=== PATIENT | female | born 1955 | race Caucasian/White ===

== ENCOUNTER 2016-07-10 02:18 | Emergency (ER) | payer BC ==
[~2016-07-10] VITALS: Ht 167.6 cm; Wt 118.1 kg
[~2016-07-10 02:18] MED LIST: ASPEC81 PO; DILT-115 PO; HYDR12.55 PO; LISI10TA PO
[2016-07-10 02:25] VITALS: TEMP 36.8; Ht 167.6 cm; Wt 118.1 kg
[2016-07-10 02:48] VITALS: PULSE 81
[2016-07-10 02:58] LABS: HEMATOCRIT 45.6 % (37-47); MEAN CELL VOLUME 91.6 fL (80-100); MEAN CORPUSCULAR HEMOGLOBIN 31.1 pg (25-34); MEAN PLATELET VOLUME 10.7 fL (7.4-10.4); PLATELET COUNT 439 K/uL (130-400); RED BLOOD COUNT 4.98 M/uL (4.2-5.4); WHITE BLOOD COUNT 8.45 K/uL (4.8-10.8)
[2016-07-10 03:15] LABS: BLOOD UREA NITROGEN 16 mg/dl (7-18); BUN/CREATININE RATIO 16.4 (10-20); CALCIUM 9.3 mg/dl (8.5-10.1); CARBON DIOXIDE 29 mmol/L (21-32); CHLORIDE 109 mmol/L (98-107); GLUCOSE 131 mg/dl (70-99); POTASSIUM 3.9 mmol/L (3.5-5.1); SODIUM 145 mmol/L (136-145)
[2016-07-10] MEDS ORDERED: ASPCH81X PO (03:46)
[2016-07-10] MEDS ORDERED: LISI40TA PO (03:46)
[2016-07-10] MEDS ORDERED: CHOL500021 PO (03:46)
[2016-07-10] MEDS ORDERED: MULT-1027 PO (03:46)
[2016-07-10] MEDS ORDERED: CLR10 PO (03:46)
[2016-07-10] MEDS ORDERED: METO25TA56 PO (03:46)
[2016-07-10 04:18] VITALS: BP 145/72; O2SAT 98
--- NOTE | 2016-07-10 04:21 | EMERGENCY ROOM VISIT NOTE ---
History Report prepared by Nakia: Louise Weiss Under the Supervision of: Dr. Najma Urbina D.O. First contact with patient: 02:31 Chief Complaint: PALPITATIONS Stated Complaint: HEART PALPS History of Present Illness The patient is a 61 year old female who presents to the Emergency Room with complaints of constant heart palpitations beginning 3 hours ago. The patient states that when she lay down to go to bed tonight she felt like her heart was "flopping around". She reports that she had an episode of A-Fib 1 year ago but has not had any episodes since. The patient complains of constant leg cramps that are not new and happen every night. She denies any chest pain, SOB, nausea , vomiting, recent illness, recent medication changes. She notes that she took a Cardizem on her way in tonight. She notes that she takes Metoprolol and baby Aspirin. Source of History: patient Onset: 3 hours ago Position: chest Quality: other (heart palpitations) Timing: constant Associated Symptoms: No SOB, No chest pain, No nausea, No vomiting Note: The patient complains of constant leg cramps that are not new and happen every night. She denies any recent illness and recent medication changes. Review of Systems See HPI for pertinent positives & negatives. A total of 10 systems reviewed and were otherwise negative. Past Medical & Surgical Medical Problems: (1) Atrial fibrillation with RVR Family History No pertinent family history stated. Social History Smoking Status: Never Smoker Drug Use: none Marital Status: Housing Status: lives with family Occupation Status: employed Current/Historical Medications Scheduled Aspirin (Aspirin Chewable), 81 MG PO DAILY Cholecalciferol (Vitamin D3), 5,000 UNIT PO DAILY Lisinopril (Prinivil), 40 MG PO DAILY Loratadine (Claritin), 10 MG PO DAILY Metoprolol Tartrate (Lopressor) (Lopressor), 25 MG PO BID Multiple Vitamin (Multi Vitamin), 1 TAB PO DAILY Allergies Coded Allergies: No Known Allergies (Verified , 07/10/16) Physical Exam Vital Signs Date Time Temp Pulse Resp B/P Pulse Ox O2 Delivery O2 Flow Rate FiO2 07/10/16 04:18 20 145/72 98 07/10/16 02:48 81 07/10/16 02:25 36.8 114 18 178/96 96 Room Air Physical Exam HEENT: Head - normocephalic and atraumatic Pupils are equal, round, and reactive to light. Extraocular eye muscles are intact, and sclera are anicteric. Nose - moist nasal mucosa without discharge. Mouth - moist buccal mucosa. Oropharynx is nonerythematous and there is no tonsillar exudate or edema noted. Neck: Supple; no JVD, nuchal rigidity, cervical lymphadenopathy. Heart: Regular rate and rhythm. There is a normal S1 and S2 with no murmurs, clicks, or gallops appreciated. Lungs: Clear to auscultation bilaterally with no wheezes, rales, or rhonchi. Abdomen: Soft, completely nontender, nondistended, with good bowel sounds. There are no palpable pulsatile masses or hepatosplenomegaly. There is no guarding, rigidity, or rebound noted. Extremities: No evidence of cyanosis, clubbing, or edema. There are easily palpable peripheral pulses. Skin: warm and dry with good turgor and no rashes. Medical Decision & Procedures Laboratory Results 07/10/16 02:40 07/10/16 02:40 Test 07/10/16 02:40 Red Blood Count 4.98 M/uL (4.2-5.4) Mean Corpuscular Volume 91.6 fL (80-100) Mean Corpuscular Hemoglobin 31.1 pg (25-34) Mean Corpuscular Hemoglobin Concent 34.0 g/dl (32-36) RDW Standard Deviation 47.0 fL (36.4-46.3) RDW Coefficient of Variation 13.9 % (11.5-14.5) Mean Platelet Volume 10.7 fL (7.4-10.4) Anion Gap 7.0 mmol/L (3-11) Est Creatinine Clear Calc Drug Dose 78.2 ml/min Estimated GFR () 70.9 Estimated GFR (Non- 61.2 BUN/Creatinine Ratio 16.4 (10-20) Calcium Level 9.3 mg/dl (8.5-10.1) Total Creatine Kinase 112 U/L (26-192) Creatine Kinase MB 1.1 ng/ml (0.5-3.6) Creatine Kinase MB Ratio 1.0 (0-3.0) Troponin I < 0.015 ng/ml (0-0.045) Pro-B-Type Natriuretic Peptide 183 pg/ml (0-900) Thyroid Stimulating Hormone (TSH) 2.880 uIu/ml (0.300-4.500) Laboratory results per my review. ECG Indication: palpitations Rate (beats per minute): 127 Rhythm: atrial fibrillation Findings: no acute ischemic change, no ectopy, other (RVR) Change: EKG #2: Normal Sinus, 82, no ischemia, no ectopy ED Course 0231: Past medical records reviewed. The patient was evaluated in room A10. A complete history and physical exam was performed. Upon entering the room, the patient was in an atrial fibrillation with a rapid ventricular response. As I went to perform a physical exam, it was noted that the patient's heart rate was in the 80s and her rhythm was normal sinus rhythm. A repeat EKG was done at that time. 0357: I reevaluated the patient. She is in normal sinus at 67. 0411: Upon reevaluation, the patient is doing will. I discussed findings and results with her. She verbalized agreement of the treatment plan. The patient was discharged home. Medical Decision The patient is a 61 year old female who presents to the ED with palpitations. Differential diagnosis includes thyroid dysfunction, electrolyte abnormality, cardiac ischemia, CHF, cardiac dysrhythmia. LABS: No leukocytosis Stable H&H Glucose 131 TSH 2.8 Negative Cardiac Enzymes BNP 183 Normal Renal Function This is a 61-year-old female patient who presents to the emergency department with an episode of atrial fibrillation and rapid ventricular response. Prior to leaving her home to come here to the emergency department, the patient took a dose of Cardizem. Upon arriving here in the ER, the patient converted on her own into a normal sinus rhythm. I reviewed the laboratory studies with the patient and her . I recommended that in the future, she can use her dose of Cardizem but that she can wait 60-90 minutes to see if there is a positive affect. However, if the patient has any episodes of lightheadedness, shortness of breath or chest discomfort, she should come to the hospital immediately. Impression Primary Impression: Atrial fibrillation with RVR Scribe Attestation The scribe's documentation has been prepared under my direction and personally reviewed by me in its entirety. I confirm that the note above accurately reflects all work, treatment, procedures, and medical decision making performed by me. Departure Information Dispostion Home / Self-Care Referrals Eric Ybarra M.D. (PCP) Forms HOME CARE DOCUMENTATION FORM, IMPORTANT VISIT INFORMATION, WORK / SCHOOL INSTRUCTIONS Patient Instructions My [facility] Additional Instructions If you develop another episode of palpitations, you may take your cardizem and wait 60-90 minutes to see if it has an effect. If not, come to the hospital. If you have any chest pain, shortness of breath or lightheadedness, call [phone]
[2016-10-29] MEDS ORDERED: TURM1CAP4 PO (13:05)
[2016-10-29] MEDS ORDERED: NAPR1TAB9 PO (13:05)
[2016-10-29] MEDS ORDERED: CINN500T PO (13:05)
[2016-10-29] MEDS ORDERED: PROB1TAB16 PO (13:05)
== END 2016-07-10 04:21 | disposition home or self-care (01) ==
LOC: C.EDB 02:19 → C.EDA 04:21
DX: I48.0 Paroxysmal atrial fibrillation (principal); Z79.82 Long term (current) use of aspirin; Z79.899 Other long term (current) drug therapy

== ENCOUNTER → 2016-11-05 | Day surgery (SDC) | payer BC ==
[2016-10-29 13:05] VITALS: BMI 41.0
[~2016-11-05] VITALS: Ht 167.6 cm; Wt 115.9 kg
[~2016-11-05] MED LIST changes: +ASPCH81X PO; -ASPEC81 PO; +CHOL500021 PO; +CINN500T PO; -DILT-115 PO; -HYDR12.55 PO; +LIDOCAINE HCL 2% 2 ML VIAL (20MG/ML) ONE; -LISI10TA PO; +LISI40TA PO; +METO25TA56 PO; +MULT-1027 PO; +NAPR1TAB9 PO; +PROB1TAB16 PO; +PROPOFOL IV EMULSION 10 MG/ML 20 ML VIAL IV ONE; +TURM1CAP4 PO
[2016-11-05 12:28] VITALS: Ht 167.6 cm; Wt 115.9 kg
--- NOTE | 2016-11-05 13:09 | Endo History and Physical ---
History & Physical Date of Service: Nov 05, 2016. Chief Complaint: SCREENING Referring Physician: DR. BURROWS History of Present Illness For colonoscopy Past Medical History Arthritis, Cancer, Hypertension Past Surgical History Hx Cardiac Surgery: Yes (HEART CATH, NO STENTS) Hx Internal Defibrillator: No Hx Pacemaker: No Hx Abdominal Surgery: Yes (ELISEO) Hx of Implantable Prosthesis: No Hx Post-Op Nausea and Vomiting: No Hx Cancer Surgery: Yes (BCC REMOVAL FROM FOREHEAD) Hx Thoracic Surgery: No Hx Orthopedic: No Hx Urinary Tract Surgery: No Family History None Social History Smoking Status: Never Smoker Hx Substance Use: No Hx Alcohol Use: No Allergies Coded Allergies: No Known Allergies (Verified , 11/05/16) Current Medications Reported Home Medications Medications Dose Route/Sig Max Daily Dose Days Date Category Aleve (Naproxen) 220 Mg Tab 220 Mg PO QAM 10/29/16 Reported Probiotic (Probiotic Product) 1 Tab Tab 1 Tab PO Q2D 10/29/16 Reported Turmeric (Turmeric (Curcuma Longa)) 500 Mg Cap 1 Cap PO Q2D 10/29/16 Reported Cinnamon 500 Mg Tab 1 Tab PO Q2D 10/29/16 Reported Multi Vitamin (Multiple Vitamin) 1 Tab Tab 1 Tab PO QAM 07/10/16 Reported Aspirin Chewable (Aspirin) 81 Mg Chew 81 Mg PO QPM 07/10/16 Reported Vitamin D3 (Cholecalciferol) 5,000 Unit Chw 5,000 Unit PO QAM 07/10/16 Reported Lopressor (Metoprolol Tartrate) 25 Mg Tab 25 Mg PO BID 07/10/16 Reported Prinivil (Lisinopril) 40 Mg Tab 40 Mg PO QAM 07/10/16 Reported Vital Signs Weight (Kilograms): 115.91 Height (Feet): 5 Height (Inches): 6 Date Time Temp Pulse Resp B/P (MAP) Pulse Ox O2 Delivery O2 Flow Rate FiO2 11/05/16 12:40 37.0 69 20 179/85 (116) 96 Room Air Physical Exam General Appearance: + obese Respiratory/Chest: Respiratory effort: no dyspnea Cardiovascular: Heart Auscultation: RRR Abdomen: Inspection & Palpation: soft Assessment and Plan For screening colonoscopy
--- NOTE | 2016-11-05 13:31 | Discharge Instructions ---
Endoscopy Patient Instructions Date / Procedure(s) Performed Nov 05, 2016. Colonoscopy Allergy Information Coded Allergies: No Known Allergies (Verified , 11/05/16) Discharge Date / Findings Nov 05, 2016. Diverticulosis, skin tags Medication Instructions Restart Stopped Medication(s): resume meds Reported Home Medications Medications Dose Route/Sig Max Daily Dose Days Date Category Aleve (Naproxen) 220 Mg Tab 220 Mg PO QAM 10/29/16 Reported Probiotic (Probiotic Product) 1 Tab Tab 1 Tab PO Q2D 10/29/16 Reported Turmeric (Turmeric (Curcuma Longa)) 500 Mg Cap 1 Cap PO Q2D 10/29/16 Reported Cinnamon 500 Mg Tab 1 Tab PO Q2D 10/29/16 Reported Multi Vitamin (Multiple Vitamin) 1 Tab Tab 1 Tab PO QAM 07/10/16 Reported Aspirin Chewable (Aspirin) 81 Mg Chew 81 Mg PO QPM 07/10/16 Reported Vitamin D3 (Cholecalciferol) 5,000 Unit Chw 5,000 Unit PO QAM 07/10/16 Reported Lopressor (Metoprolol Tartrate) 25 Mg Tab 25 Mg PO BID 07/10/16 Reported Prinivil (Lisinopril) 40 Mg Tab 40 Mg PO QAM 07/10/16 Reported Provider Instructions Activity Restrictions - No exercising or heavy lifting for 24 hours. - Do not drink alcohol the day of the procedure. - Do not drive a car or operate machinery until the day after the procedure. - Do not make any important decisions or sign important papers in 24 hours after the procedure. Following Day: - Return to full activity which may include returning to work/school. Diet Start your diet with liquids and light foods (jello, soup, juice, toast). Then eat your usual diet if not nauseated. Treatment For Common After Affects For mild abdominal pain, bloating, or excessive gas: - Rest - Eat lightly - Lie on right side Follow-Up Information Follow-up with DR. BURROWS as scheduled Anesthesia Information What You Should Know You have had a procedure that required some medicine to reduce anxiety and discomfort. This treatment is called moderate sedation. After receiving the treatment, you may be sleepy, but you will be able to breathe on your own. The effects of the treatment may last for several hours. Follow these instructions along with Activity/Diet recommendations noted above: * Do NOT do anything where dizziness or clumsiness would be dangerous. * Rest quietly at home today, then you can be up and about tomorrow. * Have a responsible person stay with you the rest of today. * You may have had an I.V. today. If so, you may take the dressing off later today. Recommendations Call your doctor if: * Trouble breathing * Continuous vomiting for more than 24 hours * Temperature above 101 degrees * Severe abdominal pain or bloating * Pain not relieved by pain medicine ordered * There is increased drainage or redness from any incision * A large amount of rectal bleeding greater than 2-3 tablespoons. (If you had a polyp/s removed or have hemorrhoids, a small amount of blood - from the rectum is to be expected.) * You have any unanswered questions or concerns. IN THE EVENT OF A SERIOUS EMERGENCY, GO TO THE NEAREST EMERGENCY ROOM Your discharge instructions were prepared by provider Markos Pablo. Patient Instructions Signature Page Maura Izquierdo Patient (or Guardian) Signature/Date: I have read and understand the instructions given to me by my caregivers. Caregiver/RN/Doctor Signature/Date: The above-named patient and/or guardian has received patient instructions on this date. + Original Patient Signature Page (only) stays with chart. Please make copy for patient.
--- NOTE | 2016-11-05 13:34 | GI REPORT ---
Procedure Date: 11/05/2016 12:53 PM Procedure: Colonoscopy Indications: Screening for colorectal malignant neoplasm Medicines: Propofol total dose 400 mg IV, Lidocaine 40 mg IV Complications: No immediate complications. Estimated Blood Loss: Estimated blood loss: none. Procedure: Pre-Anesthesia Assessment: - Prior to the procedure, a History and Physical was performed, and patient medications, allergies and sensitivities were reviewed. The patient's tolerance of previous anesthesia was reviewed. - The risks and benefits of the procedure and the sedation options and risks were discussed with the patient. All questions were answered and informed consent was obtained. After I obtained informed consent, the scope was passed under direct vision. Throughout the procedure, the patient's blood pressure, pulse, and oxygen saturations were monitored continuously. The scope was introduced through the anus and advanced to the terminal ileum. The colonoscopy was performed without difficulty. The patient tolerated the procedure well. The quality of the bowel preparation was good. Findings: The perianal exam findings include skin tags. A few diverticula were found in the sigmoid colon. Impression: - Perianal skin tags found on perianal exam. - Diverticulosis in the sigmoid colon. - No specimens collected. Recommendation: - Discharge patient to home (ambulatory). - Continue present medications. - Repeat colonoscopy in 10 years for screening purposes. - Return to primary care physician PRN. Markos Pablo M.D. Markos Pablo MD 11/05/2016 1:34:19 PM This report has been signed electronically. Note Initiated On: 11/05/2016 12:53 PM I attest to the content of the Intraoperative Record and orders documented therein, exceptions below
--- NOTE | 2016-11-05 14:00 | Anesthesiology Progress Note ---
Anesthesia Post Op Note Date & Time Nov 05, 2016 at 14:00 Vital Signs Pain Intensity: 0 Vital Signs Past 12 Hours Date Time Temp Pulse Resp B/P (MAP) Pulse Ox O2 Delivery O2 Flow Rate FiO2 11/05/16 13:49 89 14 159/84 (109) 97 Room Air 11/05/16 13:34 89 14 144/82 (102) 97 Room Air 11/05/16 12:40 37.0 69 20 179/85 (116) 96 Room Air Notes Mental Status: alert / awake / arousable, participated in evaluation Pt Amnestic to Procedure: Yes Nausea / Vomiting: adequately controlled Pain: adequately controlled Airway Patency, RR, SpO2: stable & adequate BP & HR: stable & adequate Hydration State: stable & adequate Anesthetic Complications: no major complications apparent
[2016-11-05 14:05] VITALS: BP 143/75; PULSE 87; O2SAT 97
== END | disposition home or self-care (01) ==
LOC: C.GI 12:13
PROVIDERS: ATTEND Internal Medicine Gastroenterology
DX: Z12.11 Encounter for screening for malignant neoplasm of colon (principal); K57.30 Diverticulosis of large intestine without perforation or abscess without bleeding; K64.4 Residual hemorrhoidal skin tags

== ENCOUNTER → 2017-02-16 | Outpatient (CLI) | payer BC ==
[~2017-02-16] MED LIST changes: -LIDOCAINE HCL 2% 2 ML VIAL (20MG/ML) ONE; -PROPOFOL IV EMULSION 10 MG/ML 20 ML VIAL IV ONE
--- NOTE | 2017-02-17 07:55 | MAMMOGRAPHY REPORT ---
BILATERAL DIGITAL SCREENING MAMMOGRAM TOMOSYNTHESIS WITH CAD: 02/16/2017 CLINICAL HISTORY: Routine screening. Patient has no complaints. TECHNIQUE: Breast tomosynthesis in addition to standard 2D mammography was performed. Current study was also evaluated with a Computer Aided Detection (CAD) system. COMPARISON: Comparison is made to exams dated: 02/16/2016 mammogram, 10/31/2014 mammogram, 02/15/2012 mammogram, 12/04/2010 mammogram, 12/03/2009 mammogram - [facility], and 10/21/2008. BREAST COMPOSITION: There are scattered areas of fibroglandular density in both breasts. FINDINGS: No suspicious masses, calcifications, or areas of architectural distortion are noted in ei ther breast. There has been no significant interval change compared to prior exams. Scattered bilater al benign-appearing calcifications are not significantly changed. IMPRESSION: ACR BI-RADS CATEGORY 2: BENIGN There is no mammographic evidence of malignancy. A 1 year screening mammogram is recommended. The pa tient will receive written notification of the results. Approximately 10% of breast cancers are not detected with mammography. A negative mammographic report should not delay biopsy if a clinically suggestive mass is present. Karolyn Lee M.D. ah/:02/16/2017 16:08:42 Mechanical Fitter: Brianda MALCOLM(R)(M), [facility] letter sent: Normal 1/2 BI-RADS Code: ACR BI-RADS Category 2: Benign
== END | disposition home or self-care (01) ==
LOC: C.MAMM 15:49
PROVIDERS: ATTEND Family Medicine
DX: Z12.31 Encounter for screening mammogram for malignant neoplasm of breast (principal)

== ENCOUNTER 2019-09-04 05:17 | Observation (INO) ==
--- NOTE | 2019-08-21 22:43 | PAT Medication Instructions ---
Medication Instructions Date of Service August 21, 2019 Home Medications aspirin 81 mg PO QPM zfornba-bgiftnito-rrly 1 tab PO BID carvedilol 12.5 mg PO BID cholecalciferol (vitamin D3) 125 mcg PO QAM diltiazem HCl 120 mg PO QAM hydrochlorothiazide 25 mg PO QAM lisinopril 20 mg PO QAM multivitamin 1 tab PO QAM naproxen sodium 440 mg PO BID omeprazole 20 mg PO BID sour velazquez extract [Tart Velazquez Extract] 1,000 mg PO QAM vitamin B complex [Super B-50 Complex] 1 cap PO QAM ASK your surgeon for instructions naproxen sodium 440 mg PO BID STOP taking 2 weeks before surgery If surgery is within 2 weeks, stop taking as soon as possible. sour velazquez extract [Tart Velazquez Extract] 1,000 mg PO QAM DO NOT take the morning of surgery pibyxza-dsepnwhtc-yrcv 1 tab PO BID cholecalciferol (vitamin D3) 125 mcg PO QAM hydrochlorothiazide 25 mg PO QAM lisinopril 20 mg PO QAM multivitamin 1 tab PO QAM vitamin B complex [Super B-50 Complex] 1 cap PO QAM Take morning of surgery With a small sip of water, OTHERWISE NOTHING TO EAT OR DRINK AFTER MIDNIGHT: carvedilol 12.5 mg PO BID diltiazem HCl 120 mg PO QAM omeprazole 20 mg PO BID Take evening before surgery aspirin 81 mg PO QPM frrpwbi-hbkerprrk-iotx 1 tab PO BID carvedilol 12.5 mg PO BID naproxen sodium 440 mg PO BID omeprazole 20 mg PO BID Other Notes If you have any questions please call us at [phone] or [phone] or [phone] or [phone]
--- NOTE | 2019-08-22 11:50 | Anesthesiology Consultation ---
Date of Service August 22, 2019 Assessment & Plan (1) Encounter for pre-operative examination: COVID Status: As of 08/20 nurse assessment, patient denies travel to endemic area, known exposure/sick contacts, symptoms, or testing for coronavirus. She will be tested prior to surgery by surgeon. Chart Review Chart Review: Acceptable Risk for Surgery and Patient seen in Pre Admission Testing Teaching & Discussion Instructed NPO after midnight before surgery, except medications with 15 cc of water. Medication instructions provided according to the PAT guidelines. History Surgery Operation Date: 09/04/19 07:00 Proposed Procedures p Right Total Hip Arthroplasty - Kaden Petty MD Height/Weight Height: 5 ft 5 in Weight: 120.8 kg Allergies Allergy/AdvReac Type Severity Reaction Status Date / Time No Known Allergies Allergy Verified 08/17/19 14:35 Medications Home Medications Medication Instructions Recorded Confirmed Last Taken aspirin 81 mg PO QPM 08/17/19 08/17/19 Unknown ajspwie-fwairzxxg-frqh 1 tab PO BID 08/17/19 08/17/19 Unknown carvedilol 12.5 mg PO BID 08/17/19 08/17/19 Unknown cholecalciferol (vitamin D3) 125 mcg PO QAM 08/17/19 08/17/19 Unknown [Vitamin D3] diltiazem HCl 120 mg PO QAM 08/17/19 08/17/19 Unknown hydrochlorothiazide 25 mg PO QAM 08/17/19 08/17/19 Unknown lisinopril 20 mg PO QAM 08/17/19 08/17/19 Unknown multivitamin 1 tab PO QAM 08/17/19 08/17/19 Unknown naproxen sodium 440 mg PO BID 08/17/19 08/17/19 Unknown omeprazole 20 mg PO BID 08/17/19 08/17/19 Unknown sour velazquez extract [Tart Velazquez 1,000 mg PO QAM 08/17/19 08/17/19 Unknown Extract] vitamin B complex [Super B-50 1 cap PO QAM 08/17/19 08/17/19 Unknown Complex] Past Medical History Medical History (Updated 08/23/19 @ 12:50 by Christiano Britton) Arthritis of left hip Atrial fibrillation 2016 X2 EPISODES - CONVERTED TO NSR WITH MEDICATION - FOLLOWS W/ DR. SHAFER. CHADSVASC score of 2. Degenerative joint disease of right hip GERD (gastroesophageal reflux disease) History of basal cell carcinoma History of pancreatitis 1990S Hypertension Morbid obesity Osteoarthritis Posterior vitreous detachment Exercise / Class Metabolic Activity II 4-5 Yardwork/Stairs/Walk up hill (MOves slowly up stairs 2/2 hip pain and deconditioning/obesity, denies any chest pain, mild +SOB if rushing) Past Surgical History Surgical History History of basal cell carcinoma (BCC) excision History of cardiac cath 1999 [place] - NO STENTS History of cholecystectomy History of colonoscopy History of ERCP History of esophagogastroduodenoscopy (EGD) History of removal of skin mole History of tooth extraction Past Anesthesia History No Hx of Anesthesia Complications and No Family Hx of Anesthesia Complications History of PONV No Hx of PONV and Hx of Motion Sickness Social History Smoking Status: Never smoker Do You Dip or Chew Tobacco: No Hx Alcohol Use: No Hx Substance Use: No substance use type: does not use Review of Systems Pt denies any recent chest pain, shortness of breath, palpitations, cough, fever or URI. Physical Exam Vital Signs BP: 138/77 P: 66bpm SPO2: 98% RA T: 98.6 F R: 16 Constitutional + morbidly obese ENMT Mouth: no dental restorations, no chipped teeth and no loose teeth Thyromental Distance: > or= 3.5 Finger Breadths (4) Mallampati Class: II Neck normal visual inspection and + thick neck; neck extension not limited Respiratory normal respiratory effort Auscultation: lungs clear to auscultation bilaterally Cardiovascular Rate/Rhythm: regular rate and regular rhythm Heart Sounds: no murmur Extremities: no edema Testing Laboratory Results 08/22/19 12:03 08/22/19 12:03 PT 10.3 Seconds (9.0-12.0) 08/22/19 12:03 INR 1.0 (0.9-1.1) 08/22/19 12:03 APTT 30.4 Seconds (21.0-31.0) 08/22/19 12:03 Blood Type O Positive 08/22/19 12:03 Antibody Screen NEGATIVE 08/22/19 12:03 Electrocardiogram Date: 08/22/19 Findings: + NSR @ (62bpm) Chest X-Ray Date: 08/22/19 Findings: + NAD
--- NOTE | 2019-08-22 12:27 | XRay Report ---
TWO VIEW CHEST CLINICAL HISTORY: Preoperative examination. FINDINGS: PA and lateral chest radiographs are compared to study dated 05/23/2015. The cardiomediastina l silhouette is unremarkable. There is mild bibasilar atelectasis. The lungs and pleural spaces are o therwise clear. There is no pneumothorax. The skeletal structures are osteopenic. The bony thorax ana ears intact. IMPRESSION: No active disease in the chest. ACT 112: Negative or not required by law. Electronically signed by: Isak Quinn M.D. 08/22/2019 12:25 PM
[2019-08-22 14:07] LABS: Basophils # (auto) 0.04 K/uL (0-0.2); Basophils % (auto) 0.5 %; Eosinophils # (auto) 0.24 K/uL (0-0.5); Eosinophils % (auto) 2.9 %; Hematocrit (blood only) 40.7 % (37-47); Hemoglobin 13.1 g/dL (12.0-16.0); Immature Granulocytes # (auto) 0.02 K/uL (0.00-0.02); Immature Granulocytes % (auto) 0.2 %; Lymphocytes # (auto) 2.19 K/uL (1.2-3.4); Lymphocytes % (auto) 26.8 %; Mean Corpuscular Hemoglobin 29.5 pg (25-34); Mean Corpuscular Hgb Conc 32.2 g/dL (32-36); Mean Corpuscular Volume 91.7 fL (80-100); Mean Platelet Volume 10.9 fL (7.4-10.4); Monocytes # (auto) 0.79 K/uL (0.11-0.59); Monocytes % (auto) 9.7 %; Neutrophils % (auto) 59.9 %; Platelet Count 413 K/uL (130-400); RDW Coefficient of Variation 13.7 % (11.5-14.5); RDW Standard Deviation 45.1 fL (36.4-46.3); Red Blood Count 4.44 M/uL (4.2-5.4); White Blood Count 8.18 K/uL (4.8-10.8)
[2019-08-22 14:15] LABS: BUN Creatinine Ratio 15.8 (10-20); Calcium 9.9 mg/dl (8.5-10.1); Creatinine Clr Calc Pharmacy 69.5 ml/min; Est GFR (African American) 63.3; Est GFR (Non-African American) 54.6
[2019-08-22 14:17] LABS: Partial Thromboplastin Ratio 1.1; Partial Thromboplastin Time 30.4 Seconds (21.0-31.0); Prothrombin Time 10.3 Seconds (9.0-12.0)
--- NOTE | 2019-08-23 14:40 | Electrocardiogram Report ---
Test Reason : Blood Pressure : / mmHG Vent. Rate : 062 BPM Atrial Rate : 062 BPM P-R Int : 152 ms QRS Dur : 090 ms QT Int : 430 ms P-R-T Axes : 024 029 049 degrees QTc Int : 436 ms Normal sinus rhythm Normal ECG When compared with ECG of 10-JUL-2016 02:46, No significant change was found Confirmed by Umang Zeng ([id number]) on 08/23/2019 2:39:39 PM Referred By: Kaden Petty Confirmed By:Umang Zeng
--- NOTE | 2019-08-31 10:42 | History and Physical Report ---
DATE OF ADMISSION: 09/04/2019 CHIEF COMPLAINT: Bilateral hip pain and discomfort, right side greater than left. 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 She has got a several year history of bilateral hip pain and discomfort that has gradually gotten worse over time. The right side has been worse than the left. She also has knee arthritis which bothers her. She has been managed by [facility]. She had 2 shots in the right hip. The first one in September of last year which helped significantly and the last one in March of this year, did not help much. She has been taking glucosamine which has not helped either. She has actually resorted to using the cane to get around at times. She describes buttock pain, groin pain, thigh pain. She does have pain that radiates down to her knee. She takes Aleve with minimal relief. Pain has become more debilitating. She has difficulty putting her shoes and socks on. She has difficulty going up and down steps. She would like to have her right hip fixed. PAST MEDICAL HISTORY: Past medical history significant for: 1. Intermittent atrial fibrillation in the past. 2. Hypertension. 3. Basal cell skin cancer. 4. Obesity with BMI of 44. PAST SURGICAL HISTORY: Previous surgeries include: 1. Cholecystectomy. 2. Endoscopy. ALLERGIES: None. CURRENT MEDICINES: Include: 1. Omeprazole 20 mg twice a day. 2. Carvedilol 12.5 mg twice a day. 3. Lisinopril 20 mg a day. 4. Diltiazem 120 mg a day. 5. Hydrochlorothiazide 25 mg a day. 6. Aleve twice a day. SOCIAL HISTORY: Significant for 64-year-old female. 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 She is . No smoking history. FAMILY HISTORY: Noncontributory. REVIEW OF SYSTEMS: Negative for diabetes, neurologic problems, vascular problems or bleeding disorders. No history of DVT or PE. Does have this intermittent atrial fibrillation history. PHYSICAL EXAMINATION: GENERAL: Shows a pleasant, middle-aged female. Looks to be in reasonably good health. HEENT: Benign. NECK: Supple, no lymphadenopathy. LUNGS: Clear to auscultation. HEART: Has a regular rate and rhythm. ABDOMEN: Soft, nontender, nondistended. EXTREMITIES: Grossly neurovascularly intact except as follows. Examination of both hips reveal the patient walks with a bit of an antalgic gait. She clearly limps on the right side. Leg lengths are pretty equal. She has marked pain and limitation of any hip motion. She can internally rotate to about -5 which recreates pain. Negative straight leg raise. She is neurologically intact. Examination of the right knee reveals some bony hypertrophy. Small knee effusion. Range of motion 5-110. She does have some stiffness in flexion. X-RAYS: X-rays of the hips reveal advanced right hip DJD. She has complete loss of her joint space. She has collapse of the femoral head. This has progressed over the past year from previous x-rays. X-rays of the knees reveal bilateral knee DJD. ASSESSMENT: A 64-year-old female with a history of intermittent atrial fibrillation in the past, hypertension, obesity with: 1. Bilateral hip degenerative joint disease, right side greater than left. 2. Bilateral knee degenerative joint disease. Hip seems to be the most bothersome for her at this point. Unfortunately, she is going to probably need multiple operations to fix her arthritic problems. PLAN: After extensive discussion, we are going to proceed with a right total hip replacement. The risks and benefits of this procedure were explained to the patient including but not limited to DVT, PE, , infection, neurological injury, vascular injury, bleeding problem, pain, limited range of motion, stiffness, failure to relieve her symptoms, incomplete relief of symptoms, need for further surgery in future, fracture, leg length inequality, nerve palsy, etc. The patient understands and desires to proceed. Informed consent was obtained. We did talk about holding her lisinopril and Aleve before surgery. She will take her carvedilol. She is planning to be discharged to home using the home health and her 's assistance.
[2019-09-04] MEDS ORDERED: FAMOTIDINE 20 MG TAB PO SCH (06:00)
[2019-09-04] MEDS ORDERED: CEFAZOLIN 2000MG 2,000 MG/15 ML SYR IV SCH (06:00)
[2019-09-04] MEDS ORDERED: ACETAMINOPHEN 500 MG TAB PO SCH (06:00)
[2019-09-04] MEDS ORDERED: METOCLOPRAMIDE HCL 10 MG TABLET PO SCH (06:00)
[2019-09-04] MEDS ORDERED: CEFAZOLIN 3000MG 72.5 ML IV SCH (06:00)
[2019-09-04] MEDS ORDERED: TRANEXAMIC ACID / 0.7% NACL 1,000 MG/100 ML BAG IV SCH ×2 (06:00→14:43)
[2019-09-04] MEDS ORDERED: LR 500ML BOLUS, THEN 15ML/HR IV SCH (06:00)
[2019-09-04] MEDS ORDERED: LR 60ML/HR IV SCH (06:00)
[2019-09-04] MEDS ORDERED: GABAPENTIN 600 MG DOSE PO SCH (06:00)
[2019-09-04] MEDS ORDERED: LIDOCAINE HCL 2% 2 ML VIAL/AMP(20MG/ML) INFIL ONE (06:21)
[2019-09-04] MEDS ORDERED: PROPOFOL IV EMULSION 10 MG/ML 20 ML VIAL IV ONE ×2 (06:21→07:31)
[2019-09-04] MEDS ORDERED: fentaNYL citrate 100 MCG/2 ML VIAL ONE (06:22)
[2019-09-04] MEDS ORDERED: MoRPHine SULFATE PF 1 MG/ML 10 ML AMP/VIAL ONE (06:22)
[2019-09-04] MEDS ORDERED: MIDAZOLAM HCL 1 MG/ML 2ML VIAL ONE (06:22)
[2019-09-04] MEDS ORDERED: BUPIVACAINE 0.5 % 5 MG/1 ML PF 10ML VIAL ONE (06:31)
[2019-09-04] MEDS ORDERED: BUPIVACAINE 0.5 % 5 MG/1 ML MPF 30ML VIAL ONE (06:37)
[2019-09-04] MEDS ORDERED: BACITRACIN INJ 50,000 UNIT VIAL ONE (06:37)
[2019-09-04] MEDS ORDERED: EPINEPHrine INJ 1 MG/ML AMP ONE (06:38)
[2019-09-04] MEDS ORDERED: SCOPOLAMINE 1.5 MG TDSY TD ONE ×2 (06:45→06:48)
--- NOTE | 2019-09-04 06:45 | History & Physical Bridge Note ---
Date of Service September 04, 2019 History & Physical Bridge Note I have examined the patient, reviewed the History & Physical and in the interval since the performance of the History & Physical I have noted the following changes of clinical significance: no changes noted
[2019-09-04] MEDS ORDERED: MoRPHine SULFATE PF 1 MG/ML 10 ML AMP/VIAL INT SPINAL ONE (07:06)
[2019-09-04] MEDS ORDERED: MEPERIDINE HCL 25 MG/ML CARP/VIAL IV PRN (07:06)
[2019-09-04] MEDS ORDERED: DiphenhydrAMINE HCL 50 MG/ML VIAL IV PRN (07:06)
[2019-09-04] MEDS ORDERED: PROMETHAZINE HCL 12.5 MG in SODIUM CHLORIDE 0.9% 50 ML IV PRN (07:06)
[2019-09-04] MEDS ORDERED: ONDANSETRON INJ 2 MG/ML 2 ML VIAL IV PRN (07:06)
[2019-09-04] MEDS ORDERED: LACTATED RINGER'S 500 ML IV PRN (07:06)
[2019-09-04] MEDS ORDERED: NALBUPHINE HCL INJ 10 MG/ML AMP IV PRN (07:06)
[2019-09-04] MEDS ORDERED: NALOXONE HCL 1 MG in SODIUM CHLORIDE 0.9% 1000ML 1,000 ML IV PRN (07:06)
[2019-09-04] MEDS ORDERED: ePHEDrine sulfate 50 MG/ML AMP IV PRN (07:06)
[2019-09-04] MEDS ORDERED: NALOXONE HCL 0.08 MG in SYRINGE 1.8 ML IV PRN (07:06)
[2019-09-04] MEDS ORDERED: NO NARCOTICS OR SEDATIVES SCH (07:15)
[2019-09-04] MEDS ORDERED: SODIUM CHLORIDE 0.9% 1000ML 1,000 ML IV SCH (07:15)
[2019-09-04] MEDS ORDERED: KETOROLAC TROMETHAMINE 15 MG/ML VIAL IV PRN (07:25)
--- NOTE | 2019-09-04 08:40 | Post Operative Brief Note ---
PG Immediate Post Op with CF Date of Surgery September 04, 2019 Pre & Post Diagnosis Operation Date: 09/04/19 07:00 Pre-Op Diagnosis: Right Hip Advanced Degenerative Joint Disease Post-Op Diagnosis: Right Hip Advanced Degenerative Joint Disease I identified the patient and participated in the time-out.: Yes Procedure Operation Date: 09/04/19 07:00 Actual Procedures p Right Total Hip Arthroplasty--Uncemented(Right) - Kaden Petty MD Surgeon Kaden Petty MD Shells Inspector Debo, PAC Estimated Blood Loss 300 Findings Consistent with Post-Op Diagnosis Fluids 1100 cc Specimens Specimen Description: A. Right Femoral Head Drains Chinchilla Catheter Anesthesia Type Spinal MAC Complications none Disposition Accompanied Patient To Recovery: Yes Disposition: Recovery Room
--- NOTE | 2019-09-04 08:52 | Operative Report ---
Post Operative Report Pre & Post Diagnosis Operation Date: 09/04/19 07:00 Pre-Op Diagnosis: Right Hip Advanced Degenerative Joint Disease Post-Op Diagnosis: Right Hip Advanced Degenerative Joint Disease I identified the patient and participated in the time-out.: Yes Procedure Operation Date: 09/04/19 07:00 Actual Procedures p Right Total Hip Arthroplasty--Uncemented(Right) - Kaden Petty MD Surgeon Kaden Petty MD Twist Maker Debo, PAC Estimated Blood Loss 300 Findings Consistent with Post-Op Diagnosis Operative findings revealed advanced right hip DJD. She had extensive grade 4 [id number] disease of the femoral head and acetabulum. She had a large medial acetabular osteophyte with some anterior acetabular osteophytes. Moderate-sized joint effusion. Fluids 1100 cc. Specimens Right femoral head sent for pathology. Drains None. 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 This became less successful more recently with respect to her right hip particularly. She is having trouble walking had use a cane to get around. X- rays reveal advanced right hip DJD. She elected proceed with total hip arthroplasty. Description of Procedure Operative implants consist of: 1. Biomet G7 size 52 mm acetabular shell. 2. 6.5 cancellus acetabular screws 1 of 35 mm in length and 1 to 20 mm length. 3. Yellow Pine hole eliminator. 4. Highly cross-linked polyethylene liner with a 52 mm outer diameter and 36 mm inner diameter. 5. Alfonso Corail size 10 short neck KLA femoral stem. 6. +5/36 mm ceramic articular ball. Patient was taken to the operating room identified and placed on the operating table supine position protectors were properly padded. IV antibiotics were tried by anesthesia team. A spinal anesthetic had been implemented in the holding area. Chinchilla catheter was placed in sterile fashion. The patient then placed in the left lateral decubitus position. An axillary roll was placed. A Stulberg hip positioner was used for positioning. The right hip and leg were then prepped and draped in usual sterile fashion. A posterior lateral approach to the right hip was then performed to a curvilinear incision centered over the greater trochanter. Sharp dissection was cut through subcutaneous tissue down to the IT band gluteal fascia. The IT band gluteal fascia then incised longitudinally in line with skin incision. She did have a very thick soft tissue envelope. The underlying greater trochanteric bursa was excised. The piriformis and external rotators were tagged and taken off the posterior aspect of the hip joint capsule. Great care was taken throughout the procedure protect the sciatic nerve at all times. Posterior capsulotomy was then performed leaving a large flap for later repair. Hip was internally rotated and dislocated. A femoral neck osteotomy cut was made with Final Cut about 10 mm above the lesser trochanter. Femoral head was removed. The femur was retracted anteriorly. Attention drawn the acetabulum. The acetabulum labrum was excised. This was marked primarily ossified. The pulmonary fat was excised. Sequential reaming the acetabular was then performed again with size 45 and progressing up to 51. I did reamed the entrance with a 52 as her entrance was smaller than the acetabulum. I then placed a 52 mm Biomet G7 acetabular shell in about 40 degrees lateral opening and 20 degrees of anteversion. It was fixed with two 6.5 cancellus acetabular screws. Some anter ior osteophytes were removed. A trial liner was placed. Attention then drawn the femur. The proximal femur was entered with a cookie-cutter followed by canal finder. I then broached begin the size 8 and progressed up to 10. We got excellent fit with a 10. Calcar reamer was used smooth and off the calcar. We trialed the hip and the hip was fully stable but with the standard neck just seem to be too much offset and too tight soft tissue phillips. We used the short neck which is seem to re-create the soft tissue tension more appropriately and leg lengths appeared to equal. I elect to place these implants. All trial implants were removed. An apex hole eliminator was placed. A highly cross-linked polyethylene liner was placed. A Alfonso KLA size 10 short neck femoral stem was impacted in position. A +5/36 mm ceramic articular ball was placed. Hip was located once again found to be stable. Attention drawn toward closing. The wound was irrigated with copious amounts of pulsatile lavage solution. I did inject locally with 60 cc of half percent Marcaine with epinephrine. Patient did receive 1 g tranexamic acid preoperatively. The posterior capsule and external rotators were then repaired through drill holes in the posterior trochanter with #2 Tycron suture. The IT band and gluteal fascia then closed with #1 PDS suture running fashion the subcutaneous tissue was then closed with 2 layers the deep layer #2 Vicryl suture in the subcutaneous tissues with 2-0 Dexon suture in a buried interrupted fashion. The skin was then closed with skin marek. The wound was then cleaned. Due to her large size and soft tissue envelope, a Estephanie VAC dressing was placed. The patient was then transferred to the recovery room in stable condition. The patient tolerated procedure well and no complications. I attest to the content of the Intraoperative Record and any orders documented therein. Any exceptions are noted below.
--- NOTE | 2019-09-04 09:14 | XRay Report ---
XR hip 1V RT w pelvis HISTORY: 64 years-old Female IN PACU - A/P PELVIS and LATERAL HIP right hip total joint arthroplast y COMPARISON: Hip radiographs 07/30/2019 TECHNIQUE: AP view of the pelvis with crosstable lateral view of the right hip FINDINGS: Right hip total joint arthroplasty. There is satisfactory alignment without acute fracture, dislocati on or opaque foreign body. Expected postsurgical soft tissue swelling and deep tissue air with latera l skin marek. Severe left hip posterior arthritis. IMPRESSION: Satisfactory alignment of the right hip total joint arthroplasty. ACT 112: Negative or not required by law. The above report was generated using voice recognition software. It may contain grammatical, syntax o r spelling errors. Electronically signed by: Tan Castro M.D. 09/04/2019 9:13 AM
[2019-09-04] MEDS ORDERED: ALUMINUM/MAGNESIUM SUSP 30 ML UDC PO PRN (09:41)
[2019-09-04] MEDS ORDERED: bisacodyL 10 MG SUPP PR PRN (09:41)
[2019-09-04] MEDS ORDERED: METOCLOPRAMIDE HCL INJ 5 MG/ML 2 ML VIAL IV PRN (09:41)
[2019-09-04] MEDS ORDERED: MULTIVITAMIN TAB PO SCH (09:41)
[2019-09-04] MEDS ORDERED: MAGNESIUM HYDROXIDE SUSP 30 ML UDC PO PRN (09:41)
[2019-09-04] MEDS ORDERED: SOUR CHERRY EXTRACT 1000 MG PO SCH (09:41)
[2019-09-04] MEDS ORDERED: NON-FORMULARY MEDICATION (Calcium-Magnesium-Zinc 1 TAB) PO SCH (09:41)
[2019-09-04] MEDS: NALOXONE HCL 0.4 MG/1 ML VIAL/CARP IV PRN ×3 (09:49→10:18)
[2019-09-04] MEDS: CHECK SCOPOLAMINE PATCH PLACEMENT SCH ×3 (10:25→23:22)
--- NOTE | 2019-09-04 10:35 | Anesthesiology Progress Note ---
Date of Service September 04, 2019 Anesthesia Post Procedure Vital Signs Vital Signs: Temp Pulse Pulse Pulse Resp BP BP 09/04/19 10:31 47 L 09/04/19 10:30 36.4 C L 51 L 11 L 147/85 H 09/04/19 10:28 36.4 C L 56 L 11 L 147/85 H 09/04/19 10:27 11 L 09/04/19 10:24 59 L 09/04/19 10:21 54 L 11 L 09/04/19 10:17 9 L 09/04/19 10:14 8 L 09/04/19 10:10 48 L 09/04/19 10:07 51 L 7 L 09/04/19 10:00 36.4 C L 50 L 13 149/72 H 09/04/19 09:38 09/04/19 09:30 10 L 09/04/19 09:15 58 L 16 145/72 H 09/04/19 09:00 36.2 C L 61 16 144/64 H 09/04/19 08:50 57 L 16 149/73 H 09/04/19 08:41 36.0 C L 66 16 130/63 09/04/19 05:51 37 C 74 20 164/77 H Pulse Ox Pulse Ox 09/04/19 10:31 09/04/19 10:30 98 09/04/19 10:28 98 09/04/19 10:27 09/04/19 10:24 100 09/04/19 10:21 09/04/19 10:17 09/04/19 10:14 09/04/19 10:10 09/04/19 10:07 99 09/04/19 10:00 97 09/04/19 09:38 94 09/04/19 09:30 97 09/04/19 09:15 98 09/04/19 09:00 97 09/04/19 08:50 96 09/04/19 08:41 96 09/04/19 05:51 96 Pain Intensity Right Hip: Pain Intensity: 6 Transfer of Care Handoff Completed per policy Notes Mental Status: alert / awake / arousable Patient Amnestic to Procedure: Yes Nausea / Vomiting: adequately controlled Pain: adequately controlled Airway Patency, RR, SpO2: stable & adequate BP & HR: stable & adequate Hydration State: stable & adequate Neuraxial Anesthesia: was administered and sensory block is resolving Anesthetic Complications: no major complications apparent
[2019-09-04] MEDS: carvediloL 12.5 MG TAB PO SCH ×2 (11:32→20:33)
[2019-09-04] MEDS: dilTIAZem HCL 120 MG CAPCR PO SCH (11:33)
[2019-09-04] MEDS: PANTOprazole 40 MG TAB PO SCH ×2 (11:33→20:33)
[2019-09-04] MEDS: MULTIVITAMIN TAB PO SCH (11:33)
[2019-09-04] MEDS: CHOLECALCIFEROL 1,000 UNITS 25 MCG TAB PO SCH (11:34)
[2019-09-04] MEDS: VITAMIN B COMPLEX TAB PO SCH (11:34)
[2019-09-04] MEDS: DOCUSATE SODIUM 100 MG CAP PO SCH ×2 (11:43→20:33)
[2019-09-04] MEDS: lisinopriL 20 MG TAB PO SCH (11:43)
[2019-09-04] MEDS: hydroCHLOROthiazide 25 MG TAB PO SCH (11:43)
[2019-09-04] MEDS: ASPIRIN 81 MG ECTAB PO SCH ×2 (11:44→20:33)
[2019-09-04] MEDS: KETOROLAC 30 MG/ML VIAL IV SCH ×3 (11:45→21:03)
[2019-09-04] MEDS: ACETAMINOPHEN 500 MG TAB PO SCH ×2 (12:59→21:02)
[2019-09-04] MEDS: SODIUM CHLORIDE 0.9% 1000ML 1,000 ML IV SCH ×2 (13:04→20:09)
[2019-09-04] MEDS: CEFAZOLIN 2000MG 2,000 MG/15 ML SYR IV SCH ×2 (14:07→22:09)
[2019-09-04] MEDS ORDERED: Nursing to Pharmacy Communication SCH (17:45)
[2019-09-04] MEDS: FERROUS GLUCONATE 324 MG TAB PO SCH (18:03)
[2019-09-04] MEDS: ASCORBIC ACID 500 MG TAB PO SCH (18:04)
--- NOTE | 2019-09-04 20:54 | Progress Notes ---
DATE: 09/04/2019 SUBJECTIVE: A 64-year-old female postop from a right hip replacement. She is doing pretty well. Some pain but manageable. No chest pain or shortness of breath. Not feeling dizzy or lightheaded. OBJECTIVE: VITAL SIGNS: Temperature 36.8. Vital signs stable. GENERAL: Shows a pleasant, middle-aged female. She is lying in bed, looks pretty comfortable. LUNGS: Clear to auscultation. HEART: Regular rate and rhythm. ABDOMEN: Soft, nontender, nondistended. EXTREMITIES: Grossly neurovascularly intact except as follows: Examination of the right hip and leg reveals the leg lengths to be equal. Hip is located. Dressing is clean, dry and intact. Thigh is soft and supple. She can dorsiflex and plantarflex her foot appropriately. She is neurologically intact. X-RAYS: X-rays of the right hip from recovery room were reviewed. It shows a right uncemented total hip arthroplasty. Components looked to be in good position. No signs of problems. ASSESSMENT: A 64-year-old female postop from right hip replacement, doing well. Pain is controlled. Hip is located. She is neurologically intact. PLAN: 1. DVT prophylaxis including thigh-high TEDs, SCDs, and aspirin twice a day. 2. PT/OT. Weightbear as tolerated. Right total hip protocol. 3. Pain control, doing pretty well with current pain regimen. 4. IV antibiotics x24 hours. 5. Disposition: Plan to discharge to home with some home health once adequately recovered and medically stable.
[2019-09-04] MEDS ORDERED: SENNA 8.6 MG TAB PO SCH (21:00)
[2019-09-05] MEDS ORDERED: DC INTRASPINAL MORPHINE SCH (01:06)
[2019-09-05] MEDS ORDERED: NALOXONE HCL 0.4 MG/1 ML VIAL/CARP IV PRN (01:07)
[2019-09-05] MEDS ORDERED: ONDANSETRON INJ 2 MG/ML 2 ML VIAL IV PRN (01:07)
[2019-09-05] MEDS ORDERED: TRAMADOL HCL 50 MG TABLET PO PRN (01:07)
[2019-09-05] MEDS ORDERED: HYDROmorphone INJ 0.5 MG/0.5 ML SYR IV PRN (01:07)
[2019-09-05] MEDS: KETOROLAC 30 MG/ML VIAL IV SCH ×3 (03:05→15:20)
[2019-09-05] MEDS: SODIUM CHLORIDE 0.9% 1000ML 1,000 ML IV SCH (03:06)
[2019-09-05 05:32] LABS: Basophils # (auto) 0.02 K/uL (0-0.2); Basophils % (auto) 0.2 %; Eosinophils # (auto) 0.06 K/uL (0-0.5); Eosinophils % (auto) 0.6 %; Hematocrit (blood only) 30.4 % (37-47); Hemoglobin 9.7 g/dL (12.0-16.0); Immature Granulocytes # (auto) 0.03 K/uL (0.00-0.02); Immature Granulocytes % (auto) 0.3 %; Lymphocytes # (auto) 1.96 K/uL (1.2-3.4); Mean Corpuscular Hemoglobin 29.7 pg (25-34); Mean Corpuscular Hgb Conc 31.9 g/dL (32-36); Monocytes # (auto) 1.29 K/uL (0.11-0.59); Monocytes % (auto) 11.9 %; Platelet Count 294 K/uL (130-400); RDW Coefficient of Variation 13.9 % (11.5-14.5); RDW Standard Deviation 47.1 fL (36.4-46.3); Red Blood Count 3.27 M/uL (4.2-5.4); White Blood Count 10.86 K/uL (4.8-10.8)
[2019-09-05] MEDS: ACETAMINOPHEN 500 MG TAB PO SCH ×2 (05:35→13:51)
[2019-09-05 06:07] LABS: BUN Creatinine Ratio 15.2 (10-20); Calcium 8.4 mg/dl (8.5-10.1); Creatinine Clr Calc Pharmacy 62.5 ml/min; Est GFR (African American) 56.3; Est GFR (Non-African American) 48.5; Potassium 3.7 mmol/L (3.5-5.1)
--- NOTE | 2019-09-05 08:01 | Anesthesiology Progress Note ---
Date of Service September 05, 2019 Anesthesia Post Procedure Vital Signs Vital Signs: Temp Pulse Pulse Resp BP BP Pulse Ox 09/05/19 07:29 37.0 C 66 16 108/66 97 09/05/19 03:17 37.0 C 61 18 114/66 98 09/05/19 00:35 18 99 09/04/19 23:59 14 95 09/04/19 23:25 37.0 C 72 16 112/64 97 09/04/19 22:31 18 96 09/04/19 21:38 18 100 09/04/19 21:07 16 96 09/04/19 20:31 65 119/75 09/04/19 20:14 115/70 09/04/19 19:59 36.8 C 64 16 100/60 98 09/04/19 18:42 16 95 09/04/19 17:35 16 97 09/04/19 16:27 16 97 09/04/19 15:55 36.7 C 64 17 115/71 97 09/04/19 15:28 14 98 09/04/19 14:35 12 92 09/04/19 13:29 14 98 09/04/19 12:58 75 09/04/19 12:31 36.7 C 60 15 127/63 92 09/04/19 12:30 15 92 09/04/19 11:31 14 99 09/04/19 11:29 36.4 C L 57 L 16 128/76 100 09/04/19 11:06 53 L 13 99 09/04/19 10:31 47 L 09/04/19 10:30 36.4 C L 51 L 11 L 147/85 H 98 09/04/19 10:28 36.4 C L 56 L 11 L 147/85 H 98 09/04/19 10:27 11 L 09/04/19 10:24 59 L 100 09/04/19 10:21 54 L 11 L 09/04/19 10:17 9 L 09/04/19 10:14 8 L 09/04/19 10:10 48 L 09/04/19 10:07 51 L 7 L 99 09/04/19 10:00 36.4 C L 50 L 13 149/72 H 97 09/04/19 09:38 09/04/19 09:30 36.4 C L 59 L 10 L 160/73 H 97 09/04/19 09:15 58 L 16 145/72 H 98 09/04/19 09:00 36.2 C L 61 16 144/64 H 97 09/04/19 08:50 57 L 16 149/73 H 96 09/04/19 08:41 36.0 C L 66 16 130/63 96 Pulse Ox 09/05/19 07:29 09/05/19 03:17 09/05/19 00:35 09/04/19 23:59 09/04/19 23:25 09/04/19 22:31 09/04/19 21:38 09/04/19 21:07 09/04/19 20:31 09/04/19 20:14 09/04/19 19:59 09/04/19 18:42 09/04/19 17:35 09/04/19 16:27 09/04/19 15:55 09/04/19 15:28 09/04/19 14:35 09/04/19 13:29 09/04/19 12:58 09/04/19 12:31 09/04/19 12:30 09/04/19 11:31 09/04/19 11:29 09/04/19 11:06 09/04/19 10:31 09/04/19 10:30 09/04/19 10:28 09/04/19 10:27 09/04/19 10:24 09/04/19 10:21 09/04/19 10:17 09/04/19 10:14 09/04/19 10:10 09/04/19 10:07 09/04/19 10:00 09/04/19 09:38 94 09/04/19 09:30 09/04/19 09:15 09/04/19 09:00 09/04/19 08:50 09/04/19 08:41 Pain Intensity Right Hip: Pain Intensity: 7 Notes Mental Status: alert / awake / arousable and participated in evaluation Patient Amnestic to Procedure: Yes Nausea / Vomiting: adequately controlled Pain: adequately controlled Airway Patency, RR, SpO2: stable & adequate BP & HR: stable & adequate Hydration State: stable & adequate Neuraxial Anesthesia: was administered and sensory block resolved Anesthetic Complications: no major complications apparent
[2019-09-05] MEDS: CHECK SCOPOLAMINE PATCH PLACEMENT SCH ×2 (08:52→15:21)
[2019-09-05] MEDS: hydroCHLOROthiazide 25 MG TAB PO SCH (08:53)
[2019-09-05] MEDS: lisinopriL 20 MG TAB PO SCH (08:53)
[2019-09-05] MEDS: dilTIAZem HCL 120 MG CAPCR PO SCH (08:53)
[2019-09-05] MEDS: carvediloL 12.5 MG TAB PO SCH (08:53)
[2019-09-05] MEDS: FERROUS GLUCONATE 324 MG TAB PO SCH (08:54)
[2019-09-05] MEDS: MULTIVITAMIN TAB PO SCH (08:54)
[2019-09-05] MEDS: PANTOprazole 40 MG TAB PO SCH (08:55)
[2019-09-05] MEDS: ASCORBIC ACID 500 MG TAB PO SCH (08:55)
[2019-09-05] MEDS: DOCUSATE SODIUM 100 MG CAP PO SCH (08:55)
[2019-09-05] MEDS: ASPIRIN 81 MG ECTAB PO SCH (08:55)
[2019-09-05] MEDS: CHOLECALCIFEROL 1,000 UNITS 25 MCG TAB PO SCH (08:56)
[2019-09-05] MEDS: VITAMIN B COMPLEX TAB PO SCH (08:56)
--- NOTE | 2019-09-05 15:28 | Progress Notes ---
DATE: 09/05/2019 SUBJECTIVE: A 64-year-old white female postop day 1 from right hip replacement. She is doing pretty well. Therapy went well. Does have some pain but manageable. No chest pain or shortness of breath. Not feeling dizzy or lightheaded. OBJECTIVE: VITAL SIGNS: Temperature is 37.1. Vital signs stable. GENERAL: Shows a pleasant, middle-aged female. She is sitting up in her bedside chair, looks comfortable. EXTREMITIES: Examination of the right hip reveals the wound VAC to be in place. Leg lengths are equal. Thigh is soft and supple. Hip is located. She is neurologically intact. LABORATORY DATA: Hemoglobin 9.7. Hematocrit 30.4. White cell count 10.86. Electrolytes are stable. ASSESSMENT: A 64-year-old white female postoperative day 1 from right hip replacement, doing pretty well. Pain is controlled. Hip is located. She is neurologically intact. PLAN: 1. DVT prophylaxis including thigh-high TEDs, SCDs, and aspirin twice a day. 2. PT/OT. She can weightbear as tolerated. Right total hip protocol. 3. Pain control, doing pretty well with current pain regimen. 4. Disposition: She is hoping to go home. She feels comfortable going home today and we will send her home with some home health.
--- NOTE | 2019-09-13 06:40 | Discharge Summary ---
Date of Service September 13, 2019 Admission HPI Per Admitting Provider Documented in the H&P Admission Exam (Per Admitting) Constitutional Documented in the H&P Discharge Data Consultations 09/05/19 08:00 Consult Case Management - Discharge Planning Routine Procedures Performed Operation Date: 09/04/19 07:00 Actual Procedures p Right Total Hip Arthroplasty--Uncemented(Right) - Kaden Petty MD Hospital Course (1) Status post total hip replacement, right: 64-year-old female omitted on 09/04/2019 underwent total hip replacement. She tolerated the procedure well and there were no complications. She was transferred to the PACU postoperatively and later the orthopedic for further care. She was given Ancef for antibiotic prophylaxis. She was given DORON stockings, SCDs, aspirin for DVT prophylaxis. Her hemoglobin, hematocrit, and vital signs were monitored during her hospital stay remained stable. She did not require any blood transfusions but did receive an iron supplement. There were no complications during her hospital stay. Postoperative day 1 she is tolerating a regular diet, pain was controlled with oral pain medicine, she is participating in physical therapy. On postoperative day 1 she was discharged home set up with home health services. She was given printed discharge instructions as well as new prescriptions for extra strength Tylenol, aspirin, iron supplement, and tramadol. Continue physical therapy. She is weightbearing as tolerated. Continue total hip precautions. Continue DORON stockings. Follow-up proximately 2 weeks postop or sooner if any problems or concerns. Coding Level of Care Code None Diagnoses Status post total hip replacement, right Z96.641
== END 2019-09-05 16:53 | disposition home health service (06) ==
LOC: 3E 05:17 → ASU 05:17

== ENCOUNTER 2021-08-20 00:03 | Observation (INO) ==
[2021-08-20] MEDS ORDERED: dilTIAZem HCl 5 MG/ML 5 ML VIAL IV STA (00:19)
[2021-08-20] MEDS ORDERED: SODIUM CHLORIDE 0.9% 1000ML 500 ML IV ONE (00:19)
--- NOTE | 2021-08-20 00:23 | Emergency Department Note ---
History of Present Illness General Chief complaint: Arrhythmia/Palpitations Stated complaint: IRREG HEART BEAT Time Seen by Provider: 08/20/21 00:09 History of Present Illness This 66-year-old with a history of A. fib presents to the ER complaining of racing heart concerning for A. fib Location: Chest Quality: Fluttering Severity: Moderate Duration: Tonight Timing: Started 9 PM Context: Patient was concerned and came in Modifying factors: better with nothing; worse with nothing patient took Cardizem. She did take a baby aspirin. She is not chronically in A. fib. No anticoagulation. Patient does have some epigastric chest discomfort. She thinks it is her heartburn. Patient denies dyspnea, fever, chills, flulike illness. Home Medications Medication Instructions Recorded Confirmed Type qxyupos-khylcudep-hovj 333 mg-133 1 tab PO DAILY 08/17/19 08/20/21 History mg-5 mg tablet carvedilol 12.5 mg tablet 12.5 mg PO BID 08/17/19 08/20/21 History cholecalciferol (vitamin D3) 125 125 mcg PO QAM 08/17/19 08/20/21 History mcg (5,000 unit) tablet (Vitamin D3) diltiazem HCl 120 mg 120 mg PO QAM 08/17/19 08/20/21 History capsule,extended release 24 hr, controlled lisinopril 20 mg tablet 20 mg PO QAM 08/17/19 08/20/21 History multivitamin 1 tab PO QAM 08/17/19 08/20/21 History omeprazole 20 mg delayed 20 mg PO BID 08/17/19 08/20/21 History release,disintegrating tablet acetaminophen 650 mg 1,300 mg PO BID 08/20/21 08/20/21 History tablet,extended release amoxicillin 500 mg tablet 2,000 mg PO DIRECTED PRN 08/20/21 08/20/21 History aspirin 81 mg tablet,delayed 81 mg PO BID 08/20/21 08/20/21 History release chlorthalidone 25 mg tablet 25 mg PO DAILY 08/20/21 08/20/21 History rosuvastatin 5 mg tablet 5 mg PO DAILY 08/20/21 08/20/21 History Allergies Allergy/AdvReac Type Severity Reaction Status Date / Time adhesive tape AdvReac Intermediate BLISTERS Verified 08/20/21 01:15 Past Med/Surg History Medical History Achalasia Follows with GI Atrial fibrillation Paroxysmal a fib= 2016 X2 EPISODES - CONVERTED TO NSR WITH MEDICATION - FOLLOWS W/ DR. SHAFER. CHADSVASC score of 2- pt previously declined AC per cardio records. Dyslipidemia Per records Esophageal dysmotility Follows with GI GERD (gastroesophageal reflux disease) History of pancreatitis 1990S Hypertension Labile Morbid obesity Osteoarthritis Posterior vitreous detachment resolved on own Surgical History History of basal cell carcinoma (BCC) excision History of cardiac cath 1999 [place] - NO STENTS History of cholecystectomy History of colonoscopy History of ERCP History of esophagogastroduodenoscopy (EGD) recently with balloon dilation 05/05/20 at [place] History of removal of skin mole History of right hip replacement History of tooth extraction Family History Other No family history of adverse response to anesthesia Social History Smoking Status: Never smoker Second Hand Exposure: Yes (as kid); Hx Alcohol Use: No Hx Substance Use: No Preferred Language: Bulgarian Communication Ability: Effective Credit Reporting Clerk Required: No Beliefs That Will Affect Care: None marital status: Current Living Situation: Spouse Feels Safe at Home: Yes Assistive Devices: Walker Review of Systems A total of 10 systems reviewed and were otherwise negative Physical Exam Vital Signs Vital Signs - 24 hr 08/20/21 00:03 08/20/21 00:05 08/20/21 00:23 Temperature 36.5 C Temperature Source Temporal Artery Scan Pulse Rate 119 H 151 H Pulse Rate from SpO2 Sensor 107 H Respiratory Rate 18 15 Respiratory Effort / Characteristics Non-Labored Respiratory Depth Normal Blood Pressure 184/140 H Blood Pressure Mean 154 Pulse Oximetry 95 95 Oxygen Delivery Method Room Air Room Air Sepsis Recent Fever Within 48 Hours No Sepsis New/Unexplained Change in Mental Status No Sepsis Action Taken by Nursing No Action Required 08/20/21 00:30 08/20/21 00:31 08/20/21 00:45 Temperature Temperature Source Pulse Rate 145 H 124 H 84 Pulse Rate from SpO2 Sensor 70 104 H 80 Respiratory Rate 18 20 21 Respiratory Effort / Characteristics Respiratory Depth Blood Pressure 109/79 110/54 L 113/61 Blood Pressure Mean 89 72 78 Pulse Oximetry 94 95 94 Oxygen Delivery Method Sepsis Recent Fever Within 48 Hours Sepsis New/Unexplained Change in Mental Status Sepsis Action Taken by Nursing 08/20/21 01:00 Temperature Temperature Source Pulse Rate 91 H Pulse Rate from SpO2 Sensor 90 Respiratory Rate 19 Respiratory Effort / Characteristics Respiratory Depth Blood Pressure 109/68 Blood Pressure Mean 81 Pulse Oximetry 95 Oxygen Delivery Method Sepsis Recent Fever Within 48 Hours Sepsis New/Unexplained Change in Mental Status Sepsis Action Taken by Nursing VITALS: Vitals are noted on the nurse's note and reviewed by myself. Vital signs tachycardic. GENERAL: Pleasant female, in no acute distress, nondiaphoretic, well-developed well-nourished. SKIN: The skin was without rashes, erythema, edema, or bruising. There is no tenting of the skin. Capillary reflex less than 2 seconds. HEAD: Normocephalic atraumatic. EARS: External auditory canals clear, EYES: Pupils equal round and reactive to light and accommodation. Conjunctivae without injection, sclerae without icterus. Extraocular movements intact. NOSE: Patent, turbinates without inflammation or discharge. MOUTH: Mucous membranes moist. Pharynx without erythema or exudate. Uvula midline. Airway patent. Tongue does not deviate. NECK: Supple without nuchal rigidity. No lymphadenopathy. No thyromegaly. Cervical spine is nontender. No JVD. HEART: Tachycardic irregularly irregular LUNGS: Clear to auscultation bilaterally without wheezes, rales or rhonchi. No retractions or accessory muscle use. ABDOMEN: Positive bowel sounds x 4. Normal tympanic percussion. Soft, nontender, without masses or organomegaly. Ferguson sign negative. No guarding or rebound tenderness. No CVA tenderness MUSCULOSKELETAL: No muscle atrophy, erythema, or edema noted. NEURO: Patient was alert and oriented to person place and time. Normal sensation to light and sharp touch. No focal neurological deficits. Course Administered Medications Discontinued Medications Diltiazem HCl (Diltiazem Hcl 5 Mg/Ml 5 Ml Vial) 20 mg IV NOW STA Stop: 08/20/21 00:20 Last Admin: 08/20/21 00:29 Dose: 20 mg Documented by: [id number] Cosigned by: [id number] Sodium Chloride (Nss 1000ml) 500 mls @ 999 mls/hr IV .Q31M ONE Stop: 08/20/21 00:49 Last Admin: 08/20/21 00:29 Dose: 999 mls/hr Documented by: [id number] Critical Care Time I have personally spent 35 minutes of critical care time in the direct management of this patient. This includes bedside care, interpretation of diagnostic studies, and testing, discussion with consultants, patient, and family members, and other required patient management activities. This 35 minutes is in excess of all separately billable procedures. Medical Decision Making Medical Records Attestation: I reviewed the patient's medical records. Home Medications Current Medication List: was personally reviewed by me Laboratory Data Attestation: I reviewed the patient's lab results. Result diagrams: 08/20/21 00:37 08/20/21 00:37 Lab Results 08/20/21 08/20/21 08/20/21 Range/Units 00:37 00:37 00:37 WBC 11.03 H (4.8-10.8) K/uL RBC 4.63 (4.2-5.4) M/uL Hgb 14.1 (12.0-16.0) g/dL Hct 42.7 (37-47) % MCV 92.2 (80-100) fL MCH 30.5 (25-34) pg MCHC 33.0 (32-36) g/dL RDW Std Deviation 47.7 H (36.4-46.3) fL RDW Coeff of Jerald 14.0 (11.5-14.5) % Plt Count 473 H (130-400) K/uL MPV 10.2 (7.4-10.4) fL Immature Gran % (Auto) 0.3 % Neut % (Auto) 62.2 % Lymph % (Auto) 25.2 % Sac % (Auto) 9.6 % Eos % (Auto) 2.4 % Baso % (Auto) 0.3 % Neut # (Auto) 6.87 H (1.4-6.5) K/uL Lymph # (Auto) 2.78 (1.2-3.4) K/uL Sac # (Auto) 1.06 H (0.11-0.59) K/uL Eos # (Auto) 0.26 (0-0.5) K/uL Baso # (Auto) 0.03 (0-0.2) K/uL Immature Gran # (Auto) 0.03 H (0.00-0.02) K/uL Sodium 139 (136-145) mmol/L Potassium 3.9 (3.5-5.1) mmol/L Chloride 103 (98-107) mmol/L Carbon Dioxide 26 (21-32) mmol/L Anion Gap 10 (3-11) BUN 20 (6-23) mg/dl Creatinine 1.17 (0.6-1.2) mg/dl Est Cr Clr Drug Dosing 63.7 ml/min Est GFR ( Amer) 56.6 ml/min Est GFR (Non-Af Amer) 48.9 ml/min BUN/Creatinine Ratio 17.1 (10-20) Glucose 131 H (70-99(Fasting)) mg/dl Calcium 10.6 H (8.5-10.1) mg/dl Magnesium 1.7 (1.7-2.4) mg/dl Total Bilirubin 0.3 (0.2-1.0) mg/dl AST 17 (13-39) U/L ALT 17 (7-52) U/L Alkaline Phosphatase 84 (34-104) U/L Troponin I High Sens 7.8 (0-14) pg/ml Total Protein 7.8 (6.0-8.3) gm/dl Albumin 4.4 (3.4-5.0) gm/dl Globulin 3.4 (2.5-4.0) gm/dl Albumin/Globulin Ratio 1.3 (0.9-2) TSH 2.147 (0.300-4.500) uIu/ml Imaging Data Attestation: I personally reviewed and interpreted this imaging study as follows: MDM Narrative Prior records/ancillary studies reviewed. Triage Nursing notes reviewed. Additional history obtained from family. The patient's history was concerning for tachycardia and chest pain. Differential diagnosis: Etiologies such as dysrhythmia, A. fib, cardiac ischemia, aortic dissection, pulmonary embolism, pneumonia, pneumothorax, musculoskeletal, infections, pericarditis, myocarditis, esophageal rupture, gastrointestinal, as well as others were entertained. Physical examination: As above. ER treatment provided: An order was placed for continuous cardiac monitoring. The monitor shows a rate of 80-200 with a atrial fibrillation rhythm. Cardizem bolus and drip, nss On reassessment the patient felt better. Diagnostic interpretation by me: #1 the electrocardiogram was ordered for chest pain and tachycardia EKG: Irregularly irregular ventricular rate 141, no acute ST-T wave changes. Impression A. fib with RVR interpreted by myself #2 EKG ordered for chest pain EKG: Irregularly irregular rate controlled, no acute ST-T wave changes. Impression A. fib rate controlled interpreted by myself The labs revealed negative troponin and repeat was ordered. Euthyroid, mild hyperglycemia without DKA Imaging studies: Chest x-ray with no acute consolidation, pneumothorax or free air from interpretation HEART SCORE: Hx: high/mod/low suspicion: 0 ECG: ST depression/nonspecific changes/normal: 1 Age: Greater than 65/45-64/less than 45: 2 Risk factors: (Hypertension, hyperlipidemia, diabetes, coronary disease, tobacco use, cocaine use): 1 Troponin: Greater than 2 times normal limits/1-2 times normal limits/normal: 0 Total: 4 Consultation: A consultation was placed with the hospitalist. The case was discussed and diagnostics were reviewed. The patient was evaluated in the ER for further treatment. Exam and history seem consistent with A. fib with RVR. Patient's rate improved with Cardizem. Drip was initiated. Blood pressure remained stable. Medicine was consulted. She will be admitted. By the evaluation outlined above emergent etiologies such as aortic dissection, pulmonary embolism, pneumonia, pneumothorax, infections, pericarditis, myocar ditis, gastrointestinal, as well as others were deemed relatively unlikely. The pt informed about the findings as listed above. All questions were answered and pleased with the treatment. The chart was completed utilizing [employer] Speech voice recognition software. Grammatical errors, random word insertions, pronoun errors, and incomplete sentences are an occassional consequence of this system due to software limitations, ambient noise, and hardware issues. Any formal questions or conc erns about the content, text, or information contained within the body of this dictation should be directly addressed to the physician speech pathology assistant for clarification. Impression & Plan Atrial fibrillation with RVR, Chest pain Discharge Plan Visit Data Chief Complaint: Arrhythmia/Palpitations Stated Complaint: IRREG HEART BEAT ED Provider: Najma Urbina ED Midlevel Provider: Dee Dee Willoughby Discharge Problem: Atrial fibrillation with RVR, Chest pain Patient Disposition: Admitted As Inpatient Condition: Good Forms Stand Alone Forms: My [facility] Prescriptions Prescriptions: No Action multivitamin Tablet 1 tab PO QAM RF: 0 carvedilol 12.5 mg Tablet 12.5 mg PO BID RF: 0 lisinopril 20 mg Tablet 20 mg PO QAM RF: 0 diltiazem HCl 120 mg Capsule,Ext.Rel 24h Degradable 120 mg PO QAM RF: 0 ddsfaav-nuswzktbt-piey 333-133-5 mg Tablet 1 tab PO DAILY RF: 0 cholecalciferol (vitamin D3) [Vitamin D3] 125 mcg (5,000 unit) Tablet 125 mcg PO QAM RF: 0 omeprazole 20 mg Tablet,Disintegrat, Delay Rel 20 mg PO BID RF: 0 chlorthalidone 25 mg tablet 25 mg PO DAILY RF: 0 rosuvastatin 5 mg tablet 5 mg PO DAILY RF: 0 aspirin 81 mg tablet,delayed release (DR/EC) 81 mg PO BID RF: 0 amoxicillin 500 mg tablet 2,000 mg PO DIRECTED PRN (Reason: 1 HOUR PRIOR TO DENTAL PROCEDURES) RF: 0 acetaminophen [Tylenol Arthritis] 650 mg Tablet Extended Release 1,300 mg PO BID RF: 0 Referrals Referrals: Torrey Ponce DO [Primary Care Provider] -
[2021-08-20] MEDS ORDERED: STAT IV Infusion **Titration per Protocol STA (00:42)
[2021-08-20] MEDS ORDERED: dilTIAZem HCL 125 MG in DEXTROSE 5% 100 ML IV SCH (00:45)
[2021-08-20 00:50] LABS: Basophils # (auto) 0.03 K/uL (0-0.2); Basophils % (auto) 0.3 %; Eosinophils # (auto) 0.26 K/uL (0-0.5); Eosinophils % (auto) 2.4 %; Hematocrit (blood only) 42.7 % (37-47); Hemoglobin 14.1 g/dL (12.0-16.0); Immature Granulocytes # (auto) 0.03 K/uL (0.00-0.02); Immature Granulocytes % (auto) 0.3 %; Lymphocytes # (auto) 2.78 K/uL (1.2-3.4); Lymphocytes % (auto) 25.2 %; Mean Corpuscular Hemoglobin 30.5 pg (25-34); Mean Corpuscular Volume 92.2 fL (80-100); Mean Platelet Volume 10.2 fL (7.4-10.4); Monocytes # (auto) 1.06 K/uL (0.11-0.59); Monocytes % (auto) 9.6 %; Neutrophils # (auto) 6.87 K/uL (1.4-6.5); Neutrophils % (auto) 62.2 %; Platelet Count 473 K/uL (130-400); RDW Standard Deviation 47.7 fL (36.4-46.3); Red Blood Count 4.63 M/uL (4.2-5.4); White Blood Count 11.03 K/uL (4.8-10.8)
[2021-08-20 01:16] LABS: Albumin Globulin Ratio 1.3 (0.9-2); Albumin Level 4.4 gm/dl (3.4-5.0); BUN Creatinine Ratio 17.1 (10-20); Bilirubin,Total 0.3 mg/dl (0.2-1.0); Calcium 10.6 mg/dl (8.5-10.1); Creatinine Clr Calc Pharmacy 63.7 ml/min; Est GFR (African American) 56.6 ml/min; Est GFR (Non-African American) 48.9 ml/min; Globulin 3.4 gm/dl (2.5-4.0); Magnesium 1.7 mg/dl (1.7-2.4); Potassium 3.9 mmol/L (3.5-5.1); Total Protein 7.8 gm/dl (6.0-8.3); Troponin I High Sensitivity 7.8 pg/ml (0-14)
[2021-08-20] MEDS ORDERED: POTASSIUM CHLORIDE CRTAB 20 MEQ TABCR PO STA (01:32)
[2021-08-20] MEDS ORDERED: ALBUMIN 25% 100 mL 25 GM/100 ML VIAL IV ONE (01:32)
--- NOTE | 2021-08-20 01:33 | History & Physical Report ---
Date of Service August 20, 2021 Assessment & Plan (1) Atrial fibrillation with RVR: Plan: Recurrent AF hypertension, elevated Hypercalcemia, no noted on outpatient blood work from last year hyperlipidemia on statin Rx prediabetes, hemoglobin A1c of 6.1 from September 2020 CRI, serum creatinine close to baseline OBS PCU Titrate home beta-ryan and CCB meds IV heparin for thromboembolic prophylaxis TTE, Cardiology consult Re: Recurrent AF Recheck calcium after IVF, hold calcium supplement and chlorthalidone for now, check intact PTH, Nephrology consult if without improvement Update hemoglobin A1c DVT prophylaxis. IV heparin Full code Patient requesting updates from providers. Mr. Diego Izquierdo, contact #[phone]. Text document was generated using [employer] voice recognition software. It may contain grammatical or spelling errors. Kindly contact undersigned for clarification of any documentation item in question. History of Present Illness Chief Complaint: Palpitations Primary Care Provider: Torrey Ponce, History obtained from patient, family, and records. Medical history significant for PAF, hypertension, hyperlipidemia, prediabetes, history of esophageal stricture, CRI (patient creatinine 1.2), osteoarthritis. Last confinement 2015 for PAF. Patient had spontaneous conversion to NSR. 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 Palpitations similar to A. fib attack. No actual chest pain or shortness of breath. Usual fluid retention. No cough symptoms. SBP 180s at home, pulse rate 150s on home monitor. BP not usually that high as per patient. Patient compliant with home medications. Usual stressors. Patient brought to the ER by . Noted to be in rapid A. fib, cardiac rate 150s. Initial SBP 180s. IV Cardizem bolus administered at the ER. 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 Allergies Allergy/AdvReac Type Severity Reaction Status Date / Time adhesive tape AdvReac Intermediate BLISTERS Verified 08/20/21 01:15 Home Medications Medication Instructions Recorded Confirmed Type ascbvmh-gmderrbcd-xvqg 333 mg-133 1 tab PO DAILY 08/17/19 08/20/21 History mg-5 mg tablet carvedilol 12.5 mg tablet 12.5 mg PO BID 08/17/19 08/20/21 History cholecalciferol (vitamin D3) 125 125 mcg PO QAM 08/17/19 08/20/21 History mcg (5,000 unit) tablet (Vitamin D3) diltiazem HCl 120 mg 120 mg PO QAM 08/17/19 08/20/21 History capsule,extended release 24 hr, controlled lisinopril 20 mg tablet 20 mg PO QAM 08/17/19 08/20/21 History multivitamin 1 tab PO QAM 08/17/19 08/20/21 History omeprazole 20 mg delayed 20 mg PO BID 08/17/19 08/20/21 History release,disintegrating tablet acetaminophen 650 mg 1,300 mg PO BID 08/20/21 08/20/21 History tablet,extended release amoxicillin 500 mg tablet 2,000 mg PO DIRECTED PRN 08/20/21 08/20/21 History aspirin 81 mg tablet,delayed 81 mg PO BID 08/20/21 08/20/21 History release chlorthalidone 25 mg tablet 25 mg PO DAILY 08/20/21 08/20/21 History rosuvastatin 5 mg tablet 5 mg PO DAILY 08/20/21 08/20/21 History Past Med/Surg History Medical History Achalasia Follows with GI Atrial fibrillation Paroxysmal a fib= 2016 X2 EPISODES - CONVERTED TO NSR WITH MEDICATION - FOLLOWS W/ DR. SHAFER. CHADSVASC score of 2- pt previously declined AC per cardio records. Dyslipidemia Per records Esophageal dysmotility Follows with GI GERD (gastroesophageal reflux disease) History of pancreatitis 1990S Hypertension Labile Morbid obesity Osteoarthritis Posterior vitreous detachment resolved on own Surgical History History of basal cell carcinoma (BCC) excision History of cardiac cath 1999 [place] - NO STENTS History of cholecystectomy History of colonoscopy History of ERCP History of esophagogastroduodenoscopy (EGD) recently with balloon dilation 05/05/20 at [place] History of removal of skin mole History of right hip replacement History of tooth extraction Family History Other No family history of adverse response to anesthesia Social History Smoking Status: Never smoker Second Hand Exposure: Yes (as kid); Hx Alcohol Use: No Hx Substance Use: No Preferred Language: Palauan Communication Ability: Effective Flavoring Maker Required: No Beliefs That Will Affect Care: None marital status: Current Living Situation: Spouse Feels Safe at Home: Yes Safety Concerns: Feels Safe At This Time Assistive Devices: Glasses Review of Systems Review of Systems: As per HPI, all other systems reviewed and negative Physical Exam Physical Exam: GENERAL: Comfortable, pleasant, morbidly obese, no respiratory distress SKIN: Normal color, warm HEENT: [place] palpebral conjunctivae, no ptosis, dry buccal mucosa NECK : Supple, short neck, no tenderness CHEST : Decreased breath sounds, no tenderness HEART : Irregular, no obvious murmurs ABDOMEN: Some distention, nontender EXTREMITIES : Minimal LE swelling, no LE tenderness, no other conspicuous deformities noted NEUROLOGIC : Coherent, no facial asymmetry, no other gross focality Results & Data Results & Data ([facility]) Vital Signs (Past 12 Hours) Vital Signs Temp Pulse Resp BP Pulse Ox 08/20/21 01:00 91 H 19 109/68 95 08/20/21 00:45 84 21 113/61 94 08/20/21 00:31 124 H 20 110/54 L 95 08/20/21 00:30 145 H 18 109/79 94 08/20/21 00:23 151 H 15 95 08/20/21 00:05 36.5 C 119 H 18 184/140 H 95 Laboratory Results Laboratory Results WBC 11.03 K/uL (4.8-10.8) H 08/20/21 00:37 RBC 4.63 M/uL (4.2-5.4) 08/20/21 00:37 Hgb 14.1 g/dL (12.0-16.0) 08/20/21 00:37 Hct 42.7 % (37-47) 08/20/21 00:37 MCV 92.2 fL (80-100) 08/20/21 00:37 MCH 30.5 pg (25-34) 08/20/21 00:37 MCHC 33.0 g/dL (32-36) 08/20/21 00:37 RDW Std Deviation 47.7 fL (36.4-46.3) H 08/20/21 00:37 RDW Coeff of Jerald 14.0 % (11.5-14.5) 08/20/21 00:37 Plt Count 473 K/uL (130-400) H 08/20/21 00:37 MPV 10.2 fL (7.4-10.4) 08/20/21 00:37 Immature Gran % (Auto) 0.3 % 08/20/21 00:37 Neut % (Auto) 62.2 % 08/20/21 00:37 Lymph % (Auto) 25.2 % 08/20/21 00:37 [place] % (Auto) 9.6 % 08/20/21 00:37 Eos % (Auto) 2.4 % 08/20/21 00:37 Baso % (Auto) 0.3 % 08/20/21 00:37 Neut # (Auto) 6.87 K/uL (1.4-6.5) H 08/20/21 00:37 Lymph # (Auto) 2.78 K/uL (1.2-3.4) 08/20/21 00:37 [place] # (Auto) 1.06 K/uL (0.11-0.59) H 08/20/21 00:37 Eos # (Auto) 0.26 K/uL (0-0.5) 08/20/21 00:37 Baso # (Auto) 0.03 K/uL (0-0.2) 08/20/21 00:37 Immature Gran # (Auto) 0.03 K/uL (0.00-0.02) H 08/20/21 00:37 Sodium 139 mmol/L (136-145) 08/20/21 00:37 Potassium 3.9 mmol/L (3.5-5.1) 08/20/21 00:37 Chloride 103 mmol/L (98-107) 08/20/21 00:37 Carbon Dioxide 26 mmol/L (21-32) 08/20/21 00:37 Anion Gap 10 (3-11) 08/20/21 00:37 BUN 20 mg/dl (6-23) 08/20/21 00:37 Creatinine 1.17 mg/dl (0.6-1.2) 08/20/21 00:37 Est Cr Clr Drug Dosing 63.7 ml/min 08/20/21 00:37 Est GFR ( Amer) 56.6 ml/min 08/20/21 00:37 Est GFR (Non-Af Amer) 48.9 ml/min 08/20/21 00:37 BUN/Creatinine Ratio 17.1 (10-20) 08/20/21 00:37 Glucose 131 mg/dl (70-99(Fasting)) H 08/20/21 00:37 Calcium 10.6 mg/dl (8.5-10.1) H 08/20/21 00:37 Magnesium 1.7 mg/dl (1.7-2.4) 08/20/21 00:37 Total Bilirubin 0.3 mg/dl (0.2-1.0) 08/20/21 00:37 AST 17 U/L (13-39) 08/20/21 00:37 ALT 17 U/L (7-52) 08/20/21 00:37 Alkaline Phosphatase 84 U/L (34-104) 08/20/21 00:37 Troponin I High Sens 7.8 pg/ml (0-14) 08/20/21 00:37 Total Protein 7.8 gm/dl (6.0-8.3) 08/20/21 00:37 Albumin 4.4 gm/dl (3.4-5.0) 08/20/21 00:37 Globulin 3.4 gm/dl (2.5-4.0) 08/20/21 00:37 Albumin/Globulin Ratio 1.3 (0.9-2) 08/20/21 00:37 TSH 2.147 uIu/ml (0.300-4.500) 08/20/21 00:37 Diagnostic Findings Chest x-ray as per my interpretation cardiomegaly, minimal congestion EKG as per my interpretation : Rate 140, A. fib, normal axis, T wave abnormality septal leads
[2021-08-20 01:59] LABS: INR 0.9 (0.9-1.1); Prothrombin Time 9.9 Seconds (9.0-12.0)
[2021-08-20] MEDS: MAGNESIUM SULFATE / D5W 1 GM/100 ML BAG IV SCH ×2 (02:00→03:51)
[2021-08-20] MEDS ORDERED: ACETAMINOPHEN 325 MG TAB PO PRN (03:11)
[2021-08-20] MEDS ORDERED: PROMETHAZINE HCL 12.5 MG in SODIUM CHLORIDE 0.9% 50 ML IV PRN (03:11)
[2021-08-20] MEDS ORDERED: traMADol HCL 50 MG TABLET PO PRN (03:11)
[2021-08-20] MEDS ORDERED: NITROGLYCERIN SL 0.4 MG/TAB TAB SL PRN (03:11)
[2021-08-20] MEDS ORDERED: dilTIAZem HCL 120 MG CAPCR PO SCH ×2 (05:05→09:00)
[2021-08-20 06:48] LABS: Appearance Urine Clear (Clear); Bacteria Urine Automated Negative (Negative); Bilirubin Urine Negative (Negative); Blood Urine Negative (Negative); Cast Urine Automated 0 /lpf (0-5); Color Urine Yellow; Glucose Urine UA Negative (Negative); Ketones Urine Negative (Negative); Leukocyte Esterase Urine Trace (Negative); Nitrite Urine Negative (Negative); Protein Urine Negative (Negative); RBC Urine Automated 0-4 /hpf (0-4); Specific Gravity Urine 1.009 (1.000-1.030); Urobilinogen Urine Negative (Negative); pH Urine 6.5 (4.5-7.5)
--- NOTE | 2021-08-20 07:36 | XRay Report ---
XR chest 1V portable CLINICAL HISTORY: Atypical chest pain. COMPARISON STUDY: Chest radiograph August 22, 2019. FINDINGS: Lung volumes are normal. Lungs are clear. There is no pneumothorax or pleural effusion. Car diac size is normal. Mediastinal contours are normal. There is no evidence for pulmonary edema. Kypho tic positioning is noted. IMPRESSION: No acute cardiopulmonary findings. ACT 112: Negative or not required by law. Electronically signed by: Kev Flores M.D. 08/20/2021 7:34 AM
--- NOTE | 2021-08-20 08:40 | Cardiology Consultation ---
Date of Consultation August 20, 2021 Assessment & Plan (1) Atrial fibrillation with RVR: (2) Hypertension: (3) Electrolyte abnormality: Patient admitted with atrial fibrillation RVR. [id number] score of 3 (sex, age, hypertension) with 3.2% stroke risk per year. We discussed anticoagulation therapy and she is agreeable. Start Eliquis 5 mg BID. First dose now. We have contacted her home pharmacy to verify cost as outpatient. Awaiting reply from nursing staff. She successfully and spontaneously converted to NSR this morning. Currently NSR. Continue home dose carvedilol and diltiazem. Echo is unremarkable with normal LV systolic function, preserved EF. No significant valvular disease. On admission, potassium and magnesium levels were low normal. This is likely due to chronic use of chlorthalidone, which has aided patient's BP and edema as outpatient. Electrolytes were supplemented overnight. Recommend supplementation on discharge with potassium 20 meq and mag ox 400 mg daily. Stable cardiac symptoms. No further cardiac testing warranted. Stable for discharge with above med recommendations. Case discussed with Dr. Hernandez Supervising Physician Co-Signing Physician Notes Supervising Physician Attestation: I have personally performed a history and physical examination on the patient. I agree with the physician psychological assistant's findings and plan as documented with the following additions. Subjective: Pt with sustained eposide of subjective palpitations from at least 9 pm last night. AF RVR noted on arrival and persisted until spontaneous conversion to SR at 8:13 am , without associated pause. Past work up for NEGIN was negative per patient. Exam: CV regular rhythm, no murmurs, no edema Pulm: Lungs clear to auscultation bilaterally Data: Echo with normal LVEF, normal LA size. Assessment and Plan: pAF-3rd prolonged episode in 6 years. HTN Obesity Change coreg to metoprolol. 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 Given [id number] score of 3, start anticoagulation. Eliquis 5 mg x 1 administered. Looking in to out of pocket cost. Once cost of Eliquis established OK to DC. Will ask case management about rebate card. Pt to look in to [employer] device so she can check her heart rate and rhythm at home. Return to clinic 2-4 weeks , jose e Salgado. Kaden Hernandez, History of Present Illness Reason for Consultation: Afib; Hypertension Requesting Physician: Dr. Ayala Attending Physician: Yamil Campbell MD History of Present Illness Patient is a 66 year old female with past history of PAF, last episode several years ago (patient declining anticoagulation at that time, hypertension, dyslipidemia, LE edema, obesity. 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 She took her pulse which was erratic and rapid. BP was elevated on home monitor. brought her to the ER. In car on way here she reported mild chest tightness and jaw tightness but feels this may have been anxiety. Symptoms resolved in ER. No recurrent chest pain. Potassium and magnesium levels slightly low and have been supplemented. Cardiac enzymes unremarkable. She had mild ST/T wave depression in anterolateral leads with elevated rates, but had no symptoms. Overnight, she denied symptoms other than palpitations. At time of consult, patient resting out of bed comfortably. She converted to NSR around 8:12 AM this morning. She now reports feeling great. 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 She actually wants to go to the school today as well. No chest pain, dyspnea. No palpitations. no dizziness. No orthopnea, PND or edema. History includes: 1. Paroxysmal atrial fibrillation, without recurrence. [id number] score of 3 (Sex, Age, HTN) with 3.2% stroke risk per year. She previously declined anticoagulation. 2. Hypertension 3. Dyslipidemia 4. LE edema, intermittent. Allergies Allergy/AdvReac Type Severity Reaction Status Date / Time adhesive tape AdvReac Intermediate BLISTERS Verified 08/20/21 01:15 Home Medications Medication Instructions Recorded Confirmed Type [id number] 333 mg-133 1 tab PO DAILY 08/17/19 08/20/21 History mg-5 mg tablet carvedilol 12.5 mg tablet 12.5 mg PO BID 08/17/19 08/20/21 History cholecalciferol (vitamin D3) 125 125 mcg PO QAM 08/17/19 08/20/21 History mcg (5,000 unit) tablet (Vitamin D3) diltiazem HCl 120 mg 120 mg PO QAM 08/17/19 08/20/21 History capsule,extended release 24 hr, controlled lisinopril 20 mg tablet 20 mg PO QAM 08/17/19 08/20/21 History multivitamin 1 tab PO QAM 08/17/19 08/20/21 History omeprazole 20 mg delayed 20 mg PO BID 08/17/19 08/20/21 History release,disintegrating tablet acetaminophen 650 mg 1,300 mg PO BID 08/20/21 08/20/21 History tablet,extended release amoxicillin 500 mg tablet 2,000 mg PO DIRECTED PRN 08/20/21 08/20/21 History aspirin 81 mg tablet,delayed 81 mg PO BID 08/20/21 08/20/21 History release chlorthalidone 25 mg tablet 25 mg PO DAILY 08/20/21 08/20/21 History rosuvastatin 5 mg tablet 5 mg PO DAILY 08/20/21 08/20/21 History Patient History Medical History Achalasia Follows with GI Atrial fibrillation Paroxysmal a fib= 2016 X2 EPISODES - CONVERTED TO NSR WITH MEDICATION - FOLLOWS W/ DR. SHAFER. CHADSVASC score of 2- pt previously declined AC per cardio records. Dyslipidemia Per records Esophageal dysmotility Follows with GI GERD (gastroesophageal reflux disease) History of pancreatitis Hypertension Labile Morbid obesity Osteoarthritis Posterior vitreous detachment resolved on own Surgical History History of basal cell carcinoma (BCC) excision History of cardiac cath 1999 [place] - NO STENTS History of cholecystectomy History of colonoscopy History of ERCP History of esophagogastroduodenoscopy (EGD) recently with balloon dilation 05/05/20 at [place] History of removal of skin mole History of right hip replacement History of tooth extraction Family History Other No family history of adverse response to anesthesia Social History Smoking Status: Never smoker Second Hand Exposure: Yes (as kid); Hx Alcohol Use: No Hx Substance Use: No Preferred Language: Lao Communication Ability: Effective 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 Beliefs That Will Affect Care: None marital status: Current Living Situation: Spouse Feels Safe at Home: Yes Safety Concerns: Feels Safe At This Time Assistive Devices: Glasses Review of Systems Review of Systems: All systems reviewed & are unremarkable except as noted in HPI & below Physical Exam Constitutional: WD/WN, vitals as above Respiratory: normal respiratory effort, lungs clear to auscultation Cardiovascular: Rate/Rhythm: regular rate and regular rhythm Heart Sounds: normal S1 and normal S2; no murmur Palpation: normal PMI Vessels: no JVD Extremities: no edema Gastrointestinal (Abdomen): normal bowel sounds, soft, nontender, no hepatosplenomegaly Skin: no rashes, warm and dry Neurologic: PERRL, EOMI, accommodation nl, no face palsy, no dysarthria Psychiatric: A+Ox3, euthymic affect Results & Data ([facility]) Vital Signs (Past 12 Hours) Vital Signs Temp Pulse Pulse Resp BP BP Pulse Ox 08/20/21 07:55 37.1 C 87 94 H 121/76 94 08/20/21 03:00 37 C 103 H 16 122/73 93 08/20/21 01:00 91 H 19 109/68 95 08/20/21 00:45 84 21 113/61 94 08/20/21 00:31 124 H 20 110/54 L 95 08/20/21 00:30 145 H 18 109/79 94 08/20/21 00:23 151 H 15 95 08/20/21 00:05 36.5 C 119 H 18 184/140 H 95 Laboratory Results Cardiac Enzymes 08/20/21 Range/Units 00:37 AST 17 (13-39) U/L Troponin I High Sens 7.8 (0-14) pg/ml Coagulation 08/20/21 Range/Units 00:37 PT 9.9 (9.0-12.0) Seconds APTT 27.0 (21.0-31.0) Seconds CBC 08/20/21 Range/Units 00:37 WBC 11.03 H (4.8-10.8) K/uL RBC 4.63 (4.2-5.4) M/uL Hgb 14.1 (12.0-16.0) g/dL Hct 42.7 (37-47) % Plt Count 473 H (130-400) K/uL Neut # (Auto) 6.87 H (1.4-6.5) K/uL Lymph # (Auto) 2.78 (1.2-3.4) K/uL [place] # (Auto) 1.06 H (0.11-0.59) K/uL Eos # (Auto) 0.26 (0-0.5) K/uL Baso # (Auto) 0.03 (0-0.2) K/uL Comprehensive Metabolic Panel 08/20/21 Range/Units 00:37 Sodium 139 (136-145) mmol/L Potassium 3.9 (3.5-5.1) mmol/L Chloride 103 (98-107) mmol/L Carbon Dioxide 26 (21-32) mmol/L BUN 20 (6-23) mg/dl Creatinine 1.17 (0.6-1.2) mg/dl Glucose 131 H (70-99(Fasting)) mg/dl Calcium 10.6 H (8.5-10.1) mg/dl AST 17 (13-39) U/L ALT 17 (7-52) U/L Alkaline Phosphatase 84 (34-104) U/L Total Protein 7.8 (6.0-8.3) gm/dl Albumin 4.4 (3.4-5.0) gm/dl Intake and Output 08/19/21 08/20/21 08/20/21 22:59 06:59 14:59 Intake Total 1192.500 / 1192.500 Balance 1192.500 / 1192.500 Intake: IV 692.500 / 692.500 Magnesium Sulfate / D5w 1 gm In 192.500 / 192.500 100 ml @ 50 mls/hr IV Q2H MATTHEW Rx#:[id number] Sodium Chloride 0.9% 1000ML 500 500 / 500 ml @ 999 mls/hr IV .Q31M ONE Rx#:[id number] Oral 500 / 500 Other: # Unmeasured Voids 1 Weight 125.4 kg Weight Measurement Method Standing Scale Diagnostic Findings Telemetry reviewed: she was in persistent afib with elevated ventricular rates overnight ranging 100-130's. At 8:12 AM she converted to NSR with HR's 60-70's EKG on admission: Atrial fibrillation with rapid ventricular response at [address] abnormality with mild ST/T wave depression in anterolateral leads Echo report reviewed dated 08/20/21: Study is technically limited Afib with ventricular rates of 90-110 bpm Mild concentric LVH Normal LV wall motion No regional wall motion abnormalities LV systolic function is normal at 60-65% No significant valvular heart disease Medications Administered Current Inpatient Medications Acetaminophen (Acetaminophen 325 Mg Tab) 650 mg PO Q4H PRN PRN Reason: Pain or Fever Stop: 09/19/21 03:10 Apixaban (Apixaban 5 Mg Tablet) 5 mg PO BID [facility] Stop: 09/19/21 09:14 Carvedilol (Carvedilol 12.5 Mg Tab) 12.5 mg PO BID [facility] Stop: 09/19/21 08:59 Last Admin: 08/20/21 08:37 Dose: 12.5 mg Documented by: Diltiazem HCl (Diltiazem Hcl 120 Mg Capcr) [facility] [place] [facility] Stop: 09/19/21 05:04 Last Admin: 08/20/21 05:20 Dose: 120 mg Documented by: Diltiazem HCl 125 mg/ Dextrose 125 mls @ 5 mls/hr IV .Q24H [facility]; Protocol Stop: 09/19/21 00:44 Last Admin: 08/20/21 07:15 Dose: Not Given Documented by: Promethazine HCl 12.5 mg/ (Sodium Chloride) 50.5 mls @ 202 mls/hr IV Q6H PRN PRN Reason: Nausea And Vomiting Stop: 09/19/21 03:10 Lisinopril (Lisinopril 20 Mg Tab) 20 mg PO [facility] Stop: 09/19/21 08:59 Last Admin: 08/20/21 08:37 Dose: 20 mg Documented by: Magnesium Oxide (Magnesium Oxide 400 Mg Tab) [facility] [place] Stop: 09/19/21 09:14 Multivitamins (Multivitamin Tab) 1 tab PO [facility] Stop: 09/19/21 08:59 Last Admin: 08/20/21 08:37 Dose: 1 tab Documented by: Nitroglycerin (Nitroglycerin Sl 0.4 Mg/Tab Tab) 0.4 mg SL UD PRN PRN Reason: Chest Pain Stop: 09/19/21 03:10 Pantoprazole Sodium (Pantoprazole 40 Mg Tab) 40 mg PO BID [facility] Stop: 09/19/21 08:59 Last Admin: 08/20/21 08:37 Dose: 40 mg Documented by: Potassium Chloride (Potassium Chloride Crtab 20 Meq Tabcr) 20 meq PO [facility] Stop: 09/19/21 09:14 Rosuvastatin Calcium (Rosuvastatin Calcium 5 Mg Tab) 5 mg PO DAILY MATTHEW Stop: 09/19/21 08:59 Last Admin: 08/20/21 08:37 Dose: 5 mg Documented by: Tramadol HCl (Tramadol Hcl 50 Mg Tablet) 25 - 50 mg PO Q4H PRN PRN Reason: Pain Stop: 09/19/21 03:10
[2021-08-20] MEDS ORDERED: PANTOprazole 40 MG TAB PO SCH (09:00)
[2021-08-20] MEDS ORDERED: lisinopril 20 MG TAB PO SCH (09:00)
[2021-08-20] MEDS ORDERED: PNEUMOCOCCAL POLYSACCHARIDES 25 MCG/0.5 ML VIAL/SYR IM ONE (09:00)
[2021-08-20] MEDS ORDERED: carvediloL 12.5 MG TAB PO SCH (09:00)
[2021-08-20] MEDS ORDERED: ROSUVASTATIN CALCIUM 5 MG TAB PO SCH (09:00)
[2021-08-20] MEDS ORDERED: MULTIVITAMIN TAB PO SCH (09:00)
[2021-08-20] MEDS ORDERED: MAGNESIUM OXIDE 400 MG TAB PO SCH (09:15)
[2021-08-20] MEDS ORDERED: APIXABAN 5 MG TABLET PO SCH (09:15)
[2021-08-20 09:41] LABS: BUN Creatinine Ratio 16.7 (10-20); Calcium 10.6 mg/dl (8.5-10.1); Creatinine Clr Calc Pharmacy 69.7 ml/min; Est GFR (African American) 62.4 ml/min; Est GFR (Non-African American) 53.8 ml/min; Potassium 4.1 mmol/L (3.5-5.1)
--- NOTE | 2021-08-20 11:23 | Hospitalist Progress Note ---
Date of Service August 20, 2021 Assessment & Plan (1) Atrial fibrillation with RVR: Plan: Atrial fibrillation with RVR Normal TSH CXR:No acute cardiopulmonary findings. ECHO: Mild concentric LVH. Left ventricle wall motion is normal. No regional wall motion abnormality. Left ventricle systolic function is normal. EF 60 to 65%. No significant valvular heart disease. [id number] score 3 Spontaneously converted to sinus. Continue diltiazem Carvedilol transition to metoprolol 50 mg twice daily Started on Eliquis 5 mg. Appreciate cardiology input Monitor and replace electrolytes as needed Needs follow-up with cardiology upon discharge Hypertension Blood pressure stable Continue current medications Hypercalcemia Normal PTH Advised to discontinue calcium, vitamin D supplements for now Advised to follow-up with PCP with repeat blood work for further management Hyperlipidemia on statin Prediabetes HbA1C: 6.18 September 2020 CKD III Creatinine at baseline Monitor renal function Avoid nephrotoxic agents as able DVT Px: Eliquis Code Status Full code Admission and Anticipated Discharge Date Admission Date: August 20, 2021 Subjective Patient is seen and examined at bedside Converted to sinus rhythm this morning States feeling well today Discussed with cardiology today Patient denies any chest pain, shortness of breath, dizziness, nausea, abdominal pain Eager to get discharged Review of Systems Review of Systems: All systems reviewed & are unremarkable except as noted in Subjective Physical Exam Physical Exam: Physical Exam: Vitals signs as noted above General Appearance:Obese, no apparent distress Head: normocephalic, Atraumatic Eyes: normal inspection, EOMI Neck: supple, Trachea midline Respiratory/Chest: Normal breath sounds, CTA, No accessory muscle use Cardiovascular: S1, S2, No murmur Abdomen/GI:Soft, Non tender, Bowel sounds present Extremities/Musculoskeletal:normal inspection, no edema Neurologic/Psych:AAOX3, grossly no focal neurological deficits Skin: normal color, warm Results & Data Results & Data ([facility]) Vital Signs (Past 12 Hours) Vital Signs Temp Pulse Pulse Resp BP BP Pulse Ox 08/20/21 08:00 101 H 08/20/21 07:55 37.1 C 87 94 H 121/76 94 08/20/21 03:00 37 C 103 H 16 122/73 93 08/20/21 01:00 91 H 19 109/68 95 08/20/21 00:45 84 21 113/61 94 08/20/21 00:31 124 H 20 110/54 L 95 08/20/21 00:30 145 H 18 109/79 94 08/20/21 00:23 151 H 15 95 08/20/21 00:05 36.5 C 119 H 18 184/140 H 95 Laboratory Results Short CBC 08/20/21 Range/Units 00:37 WBC 11.03 H (4.8-10.8) K/uL Hgb 14.1 (12.0-16.0) g/dL Hct 42.7 (37-47) % Plt Count 473 H (130-400) K/uL BMP 08/20/21 08/20/21 00:37 08:50 Sodium 139 138 Potassium 3.9 4.1 Chloride 103 103 Carbon Dioxide 26 27 BUN 20 18 Creatinine 1.17 1.08 Glucose 131 H 121 H Calcium 10.6 H 10.6 H Liver Function 08/20/21 Range/Units 00:37 Total Bilirubin 0.3 (0.2-1.0) mg/dl AST 17 (13-39) U/L ALT 17 (7-52) U/L Alkaline Phosphatase 84 (34-104) U/L Albumin 4.4 (3.4-5.0) gm/dl Urine 08/20/21 Range/Units 01:36 Urine Color Yellow Urine Appearance Clear (Clear) Urine pH 6.5 (4.5-7.5) Ur Specific [place] 1.009 (1.000-1.030) Urine Protein Negative (Negative) Urine Glucose (UA) Negative (Negative)
--- NOTE | 2021-08-20 14:35 | Electrocardiogram Report ---
Test Reason : Blood Pressure : / mmHG Vent. Rate : 062 BPM Atrial Rate : 062 BPM P-R Int : 132 ms QRS Dur : 090 ms QT Int : 420 ms P-R-T Axes : 051 020 070 degrees QTc Int : 426 ms Normal sinus rhythm Normal ECG When compared with ECG of 20-AUG-2021 00:44, Sinus rhythm has replaced Atrial fibrillation Confirmed by Mehdi Rich ([id number]) on 08/20/2021 2:34:52 PM Referred By: REFERRED SELF Confirmed By:Mehdi Rich
--- NOTE | 2021-08-20 16:17 | Electrocardiogram Report ---
Test Reason : Blood Pressure : / mmHG Vent. Rate : 141 BPM Atrial Rate : 156 BPM P-R Int : 000 ms QRS Dur : 086 ms QT Int : 300 ms P-R-T Axes : 000 010 058 degrees QTc Int : 459 ms Atrial fibrillation with rapid ventricular response Nonspecific ST abnormality Anterolateral leads Abnormal ECG When compared with ECG of 22-AUG-2019 11:59, Atrial fibrillation has replaced Sinus rhythm Vent. rate has increased BY [address] now depressed in Anterolateral leads Confirmed by Mehdi Rich ([id number]) on 08/20/2021 4:17:00 PM Referred By: REFERRED SELF Confirmed By:Mehdi Rich
--- NOTE | 2021-08-20 16:17 | Electrocardiogram Report ---
Test Reason : Blood Pressure : / mmHG Vent. Rate : 080 BPM Atrial Rate : 101 BPM P-R Int : 000 ms QRS Dur : 088 ms QT Int : 380 ms P-R-T Axes : 000 003 041 degrees QTc Int : 438 ms Atrial fibrillation Abnormal ECG When compared with ECG of 20-AUG-2021 00:17, Vent. rate has decreased BY [address] no longer depressed in Anterolateral leads Confirmed by Mehdi Rich ([id number]) on 08/20/2021 4:17:23 PM Referred By: REFERRED SELF Confirmed By:Mehdi Rich
--- NOTE | 2021-08-20 16:40 | Discharge Summary ---
Date of Service August 20, 2021 Admission HPI Per Admitting Provider History obtained from patient, family, and records. Medical history significant for PAF, hypertension, hyperlipidemia, prediabetes, history of esophageal stricture, CRI (patient creatinine 1.2), osteoarthritis. Last confinement 2015 for PAF. Patient had spontaneous conversion to NSR. 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 Palpitations similar to A. fib attack. No actual chest pain or shortness of breath. Usual fluid retention. No cough symptoms. SBP 180s at home, pulse rate 150s on home monitor. BP not usually that high as per patient. Patient compliant with home medications. Usual stressors. Patient brought to the ER by . Noted to be in rapid A. fib, cardiac rate 150s. Initial SBP 180s. IV Cardizem bolus administered at the ER. 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 Admission Exam Per Admitting Provider Physical Exam Physical Exam: GENERAL: Comfortable, pleasant, morbidly obese, no respiratory distress SKIN: Normal color, warm HEENT: [place] palpebral conjunctivae, no ptosis, dry buccal mucosa NECK : Supple, short neck, no tenderness CHEST : Decreased breath sounds, no tenderness HEART : Irregular, no obvious murmurs ABDOMEN: Some distention, nontender EXTREMITIES : Minimal LE swelling, no LE tenderness, no other conspicuous deformities noted NEUROLOGIC : Coherent, no facial asymmetry, no other gross focality Principal Diagnosis Atrial fibrillation with RVR Mild Hypercalcemia Discharge Data Allergies Allergy/AdvReac Type Severity Reaction Status Date / Time adhesive tape AdvReac Intermediate BLISTERS Verified 08/20/21 01:15 Consultations 08/20/21 01:27 ED Decision to Admit Stat 08/20/21 03:11 Consult Cardiology Routine Hospital Course (1) Atrial fibrillation with RVR: Atrial fibrillation with RVR Normal TSH CXR:No acute cardiopulmonary findings. ECHO: Mild concentric LVH. Left ventricle wall motion is normal. No regional wall motion abnormality. Left ventricle systolic function is normal. EF 60 to 65%. No significant valvular heart disease. [id number] score 3 Spontaneously converted to sinus. Continue diltiazem Carvedilol transition to metoprolol 50 mg twice daily Started on Eliquis 5 mg. Appreciate cardiology input Monitor and replace electrolytes as needed Needs follow-up with cardiology upon discharge Hypertension Blood pressure stable Continue current medications Hypercalcemia Normal PTH Advised to discontinue calcium, vitamin D supplements for now Advised to follow-up with PCP with repeat blood work for further management Hyperlipidemia on statin Prediabetes HbA1C: 6.18 September 2020 CKD III Creatinine at baseline Monitor renal function Avoid nephrotoxic agents as able DVT Px: Eliquis Code Status Full code Total Time Total Time Spent Total Time Spent (In Minutes): 40 minutes Discharge Plan Discharge Items Patient Disposition: Home - Self-Care Reason For Visit: RECURRENT AF Discharge Diagnosis: Atrial fibrillation with RVR Mild Hypercalcemia Condition on Discharge: Good Activity: Per Instructions section Exercise/Sports: Gradually increase as tolerated Non-emergency contact: Primary Care Provider and Marketing And Promotions Manager Call non-emergency contact if: you have any medication questions, your symptoms worsen, your pain is concerning for you and you have a fever Follow-up/Referrals: Torrey Ponce, [Primary Care Provider] - Diet: Heart Healthy Addtl Attending Provider Instructions: Follow-up with your primary care physician Dr. Torrey Ponce in 1 week as advised. Please call for appointment. Follow-up with your diet technician registered /Gloria Salgado PA-C in 2-4 weeks Seek immediate medical attention if your symptoms reoccur or worsen Please take all medications as instructed on discharge list below. Please call if you have any questions or problems. You can reach a [facility] hospitalist on duty at [facility] 24 hours a day by calling [phone] Pending Studies at Discharge: No Stand-Alone Forms: My [facility] [employer] Development, Smoking Cessation Medications and DC Order Prescriptions: New Eliquis 5 mg Tablet 5 mg PO BID Qty: 60 RF: 0 potassium chloride 20 mEq Tablet,Er Particles/Crystals 20 meq PO QAM Qty: 30 RF: 0 magnesium oxide 400 mg (241.3 mg magnesium) Tablet 400 mg PO QAM Qty: 30 RF: 0 metoprolol tartrate 50 mg tablet 50 mg PO BID Qty: 60 RF: 0 Continued multivitamin Tablet 1 tab PO QAM RF: 0 lisinopril 20 mg Tablet 20 mg PO QAM RF: 0 diltiazem HCl 120 mg Capsule,Ext.Rel 24h Degradable 120 mg PO QAM RF: 0 omeprazole 20 mg Tablet,Disintegrat, Delay Rel 20 mg PO BID RF: 0 chlorthalidone 25 mg tablet 25 mg PO DAILY RF: 0 rosuvastatin 5 mg tablet 5 mg PO DAILY RF: 0 aspirin 81 mg tablet,delayed release (DR/EC) 81 mg PO BID RF: 0 amoxicillin 500 mg tablet 2,000 mg PO DIRECTED PRN (Reason: 1 HOUR PRIOR TO DENTAL PROCEDURES) RF: 0 acetaminophen 650 mg Tablet Extended Release 1,300 mg PO BID RF: 0 Discontinued carvedilol 12.5 mg Tablet 12.5 mg PO BID RF: 0 cfvlkhn-chxwksxzq-fmte 333-133-5 mg Tablet 1 tab PO DAILY RF: 0 cholecalciferol (vitamin D3) [Vitamin D3] 125 mcg (5,000 unit) Tablet 125 mcg PO QAM RF: 0 Discharge Orders: Discharge Order (Routine); Ordered 08/20/21 Ordered By: Yamil Campbell Admission Data Admit Date/Time: 08/20/21 01:37 Attending Provider: Yamil Campbell Admit Provider: Keon Ayala Primary Care Provider: Torrey Ponce Other Providers: Keon Ayala ; Aris Morgan ; Kaden Hernandez ; Zackery Kelly ; Brian Florence ; Jhonatan Ryan ; Tunde Ag ; Gloria Salgado ; Hailey Wang ; Raven Lobato ; Kevin Devries Other Interventions: Discharge Summary Assessment (RN) Last Done: 08/20/21 11:53
[2021-08-21] MEDS ORDERED: POTASSIUM CHLORIDE CRTAB 20 MEQ TABCR PO SCH (09:00)
== END 2021-08-20 12:18 | disposition home or self-care (01) ==
LOC: 2S 00:03 → ED 00:03 → 2S 02:30

== ENCOUNTER 2021-10-20 06:23 | Observation (INO) ==
--- NOTE | 2021-10-13 09:39 | Anesthesiology Consultation ---
Date of Service October 13, 2021 Assessment & Plan (1) Encounter for pre-operative examination: - Eliquis: per cardio below acceptable to hold 2-3 days, pt made aware to hold for 72 hours in order to receive neuraxial anesthesia and she states will confirm exact plan for last dose timing with cardiology. - cardiology 09/25/21 [facility]: "...close cardiology hospital f/u...admitted to [facility] with complaints of palpitations. Found to have recurrent afib. Cardiology was consulted and evaluated by the undersigned and Dr. Hernandez. Echo was unremarkable with normal LV systolic function and no valvular disease. Potassium and magnesium levels were low and supplemented. Chlorthalidone was stopped/held but resumed on discharge...transitioned to metoprolol in place of carvedilol. Eliquis was initiated for anticoagulation [id number] score of 3. At f/u with PCP, EKG demonstrated NSR...night before she had a several hour episode of afib that resolved. Potassium was elevated at PCP visit and supplement stopped. Has not been rechecked...presents today with her feeling well. No recurrent afib since 08/26, before PCP visit...having knee surgery in October 2021...Concerned with hyperkalemia. Potassium supplement was stopped but not rechecked. Repeat labs to be done next week. Orders provided. No further cardiac testing warranted prior to planned orthopedic knee surgery. Acceptable to hold Eliquis for 2-3 days in the pre op setting. Resume post op when bleeding risk is minimal...> 1 month post last episode of afib...continue diltiazem and metoprolol without interruption..." K normalized, Mg 1.6 on 10/12/21 labs. Per communication note from Kailee Duffy PA-C on 05/12/20="Patient scheduled for Left CHUCKY 05/27/[address] Petty. Patient s/p EGD with dilation 05/05/20 ([facility]). Spoke with Dr. Cramer 05/12/20-he feels that patient is at higher risk for aspiration d/t history of esophageal motility disorder, achalasia and morbid obesity. He does not feel that the timing of the surgery will change this risk or anything further can be done to decrease it.He states greatest risk would be with general anesthesia(advised him that typically hip replacements are done under SAB + sedation).He did additionally advise patient to do clears the day before surgery to as well decrease risk of aspiration." - COVID screening: Per clinical assessment manager on 10/08/2021: Travel screen returned from [facility] 10/11, no known COVID-19 positive contacts or current COVID-19 related symptoms in past 2 weeks. Pt vaccinated. Surgeon arranging preop COVID testing, scheduled 10/16/2021. Awaiting results. Chart Review Chart Review: Acceptable Risk for Surgery and Patient NOT seen in Pre Admission Testing History Surgery Operation Date: 10/20/21 07:00 Proposed Procedures p Left Total Knee Arthroplasty - Kaden Petty MD Height/Weight Height: 5 ft 5 in Weight: 122.47 kg Allergies Allergy/AdvReac Type Severity Reaction Status Date / Time adhesive tape AdvReac Intermediate BLISTERS Verified 10/08/21 09:15 Medications Home Medications Medication Instructions Recorded Confirmed Last Taken diltiazem HCl 120 mg 120 mg PO HS 08/17/19 10/08/21 08/19/21 capsule,extended release 24 hr, controlled lisinopril 20 mg tablet 20 mg PO QAM 08/17/19 10/08/21 08/19/21 multivitamin 1 tab PO QAM 08/17/19 10/08/21 08/19/21 omeprazole 20 mg delayed 20 mg PO BID 08/17/19 10/08/21 08/19/21 release,disintegrating tablet acetaminophen 650 mg 1,300 mg PO BID 08/20/21 10/08/21 08/19/21 tablet,extended release amoxicillin 500 mg tablet 2,000 mg PO UD PRN 1 HOUR PRIOR TO 08/20/21 10/08/21 Unknown DENTAL PROCEDURES apixaban 5 mg tablet (Eliquis) 5 mg PO BID #60 tabs 08/20/21 10/08/21 Unknown aspirin 81 mg tablet,delayed 81 mg PO QAM 08/20/21 10/08/21 08/19/21 release chlorthalidone 25 mg tablet 25 mg PO QAM 08/20/21 10/08/21 08/19/21 magnesium oxide 400 mg (241.3 mg 400 mg PO QAM #30 tabs 08/20/21 10/08/21 Unknown magnesium) tablet metoprolol tartrate 50 mg tablet 50 mg PO BID #60 tabs 08/20/21 10/08/21 Unknown rosuvastatin 5 mg tablet 5 mg PO HS 08/20/21 10/08/21 08/19/21 Past Medical History Medical History (Updated 10/13/21 @ 10:03 by Jaqueline Davey PA-C) Achalasia Follows with GI Basal cell carcinoma Dyslipidemia Per records Esophageal dysmotility Follows with GI GERD (gastroesophageal reflux disease) History of pancreatitis Hx of Clostridium difficile infection [id number] Hypertension Labile LVH (left ventricular hypertrophy) mild Morbid obesity Paroxysmal atrial fibrillation anticoagulated, follows with [facility] cardio Posterior vitreous detachment resolved on own Prediabetes Past Family History Family History Other No family history of adverse response to anesthesia Past Surgical History Surgical History (Updated 10/13/21 @ 09:51 by Jaqueline Davey PA-C) History of basal cell carcinoma (BCC) excision History of cardiac cath 1999 [place] - NO STENTS History of cholecystectomy History of colonoscopy History of ERCP History of esophagogastroduodenoscopy (EGD) recently with balloon dilation 05/05/20 at [place] History of removal of skin mole History of right hip replacement 09/04/19: SAB at L3-L4. History of tooth extraction History of total left hip arthroplasty 05/27/20: SAB at L3-L4 1 attempt. Social History Smoking Status: Never smoker Do You Dip or Chew Tobacco: No Hx Alcohol Use: No Hx Substance Use: No substance use type: does not use Lab Results Anesthesia Preop Results Results Anesthesia Widget: WBC 7.63 K/ul (4.8-10.8) 10/12/21 Hgb 12.4 g/dl (12.0-16.0) 10/12/21 Hct 37.6 % (34.1-44.9) 10/12/21 Plt 457 K/uL (130-400) H 10/12/21 Na 136 mmol/L (136-145) 10/12/21 K 3.9 mmol/L (3.5-5.1) 10/12/21 Cl 104 mmol/L (98-107) 10/12/21 CO2 25 mmol/L (21-32) 10/12/21 BUN 18 mg/dl (6-23) 10/12/21 Creat 1.00 mg/dl (0.6-1.2) 10/12/21 Glucose Level 157 mg/dl (70-99(Fasting)) H 10/12/21 PT 10.3 Seconds (9.0-12.0) 10/12/21 PTT 31.2 Seconds (21.0-31.0) H 10/12/21 INR 1.0 (0.9-1.1) 10/12/21 TSH 2.147 uIu/ml (0.300-4.500) 08/20/21 Urine Color Yellow 08/20/21 Urine Appearance Clear (Clear) 08/20/21 Urine pH 6.5 (4.5-7.5) 08/20/21 Urine Specific [place] 1.009 (1.000-1.030) 08/20/21 Urine Protein Negative (Negative) 08/20/21 Urine Glucose (UA) Negative (Negative) 08/20/21 Urine Ketones Negative (Negative) 08/20/21 Urine Blood Negative (Negative) 08/20/21 Urine Nitrite Negative (Negative) 08/20/21 Urine Bilirubin Negative (Negative) 08/20/21 Urine Urobilinogen Negative (Negative) 08/20/21 Urine Leukocyte Esterase Trace (Negative) H 08/20/21 Urine WBC (Auto) 1-5 /hpf (0-5) 08/20/21 Urine RBC (Auto) 0-4 /hpf (0-4) 08/20/21 Urine Hyaline Casts (Auto) 0 /lpf (0-5) 08/20/21 Urine Epithelial Cells (Auto) 10-20 /lpf (0-5) H 08/20/21 Urine Bacteria (Auto) Negative (Negative) 08/20/21 SARS-CoV-2, RNA, NAAT NEGATIVE (NEGATIVE) 08/20/21 Blood Type O Positive 10/12/21 Antibody Screen NEGATIVE 10/12/21 Testing Electrocardiogram Date: 08/20/21 NSR, rate 62 bpm Chest X-Ray Date: 08/20/21 *1view* No acute cardiopulmonary findings. Echocardiogram Date: 08/20/21 EF 60-65% Afib with RVR, 90-110 bpm Mild cLVH Normal LV wall motion No significant valvular heart disease
--- NOTE | 2021-10-16 18:14 | History and Physical Report ---
DATE OF ADMISSION: 10/20/2021 CHIEF COMPLAINT: Bilateral knee pain and discomfort, left side greater than right. HISTORY OF PRESENT ILLNESS: The patient is a 66-year-old white female well known to me from previous bilateral hip replacements. The left one was done 16 months ago and the right one about 2 years ago . She has got a long history of knee problems as well. The left knee bothers her more than the righ t. We have been treating her with injections and oral medical management, but this has not been succ essful lately. She has got global pain in both knees. The more she walks, the more they hurt. She limps all the time, but more as the day goes on. She would like to get her knees fixed. PAST MEDICAL HISTORY: Significant for, 1. Paroxysmal atrial fibrillation, on Eliquis. 2. Gastroesophageal reflux disease. 3. Obesity, BMI of 45. 4. Back pain. 5. Basal cell skin cancer. PAST SURGICAL HISTORY: Includes, 1. Left hip replacement done ____ months ago. 2. Right hip replacement a little over 2 years out. 3. Multiple endoscopies. ALLERGIES: None. CURRENT MEDICATIONS: Include, 1. Simvastatin. 2. Potassium chloride. 3. Omeprazole. 4. Multivitamin. 5. Metoprolol. 6. Magnesium. 7. Lisinopril. 8. Eliquis. 9. Aspirin. 10. Chlorthalidone. 11. Diltiazem. 12. Tylenol. SOCIAL HISTORY: A 66-year-old female. She is . 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 Does not smoke. FAMILY HISTORY: Noncontributory. REVIEW OF SYSTEMS: Negative for diabetes. No chest pain or shortness of breath. No history of DVT or PE. She is on Eliquis for paroxysmal atrial fibrillation. She is followed by [facility]. PHYSICAL EXAMINATION: GENERAL: Shows a pleasant middle-aged female. Looks to be in reasonably good health. HEENT: Benign. NECK: Supple. No lymphadenopathy. LUNGS: Clear to auscultation. HEART: Regular rate and rhythm. ABDOMEN: Soft, nontender, nondistended. EXTREMITIES: Grossly neurovascularly intact except as follows: Examination of both knees reveals th e patient ambulates with a bit of a waddling gait. Examination of the left knee reveals slight varus alignment. Moderate soft tissue envelope. Tender over the medial joint line. Range of motion 5-11 5. No instability. No pain with hip motion. X-RAYS: X-rays of the left knee reveal advanced left knee tricompartment DJD. She has got advanced disease in all 3 compartments. Both knees are about the same. ASSESSMENT: A 66-year-old female with multiple medical comorbidities including obesity, gastroesopha geal reflux disease, paroxysmal atrial fibrillation, status post bilateral hip replacements with adva nced bilateral knee degenerative joint disease, the left side more symptomatic than the right. She h as failed conservative measures and would like to have her left knee replaced. PLAN: We will take her to the operating room and do a left knee replacement. The risks and benefits of this procedure were explained to the patient and include but not limited to DVT, PE, , infec tion, neurological injury, vascular injury, bleeding problem, pain, limited range of motion, stiffnes s, failure to relieve her symptoms, incomplete relief of symptoms, need for further surgery in the fu ture, etc. The patient understands and desires to proceed. Informed consent was obtained. She knows to hold her Eliquis 3 days preop. We will start her on a prophylactic dose when 24 hours p ostop. We will use tramadol for pain. She knows to hold the lisinopril on the morning of surgery. She should take her metoprolol and omeprazole. She is going to be using [employer]. Job ID: [id number]
[~2021-10-20 06:23] MED LIST changes: +ACETAMINOPHEN 500 MG TAB PO SCH; -ASPCH81X PO; +BUPIVACAINE 0.5 % 5 MG/1 ML PF 10ML VIAL ONE; +BUPIVACAINE LIPOSOME/PF 266 MG, BUPIVACAINE/EPINEPHRINE 50 ML, SODIUM CHLORIDE 0.9% 30 ... INFIL SCH; -CHOL500021 PO; -CINN500T PO; +CeleBREX 200 MG CAP PO SCH; +FAMOTIDINE 20 MG TAB PO SCH; +GABAPENTIN 300 MG CAP PO SCH; -LISI40TA PO; +LR 500ML BOLUS, THEN 15ML/HR IV SCH; +LR 60ML/HR IV SCH; -METO25TA56 PO; +METOCLOPRAMIDE HCL 10 MG TABLET PO SCH; -MULT-1027 PO; -NAPR1TAB9 PO; -PROB1TAB16 PO; +ROPIVACAINE 0.5% 5 MG/ML 30 ML VIAL ONE; +Scopolamine 1 MG TDSY TD SCH; +TRANEXAMIC ACID 1,000 MG **IV Intra-op IV SCH; +TRANEXAMIC ACID 1,000 MG **IV Pre-op IV SCH; -TURM1CAP4 PO
--- NOTE | 2021-10-20 06:55 | History & Physical Bridge Note ---
Date of Service October 20, 2021 History & Physical Bridge Note I have examined the patient, reviewed the History & Physical and in the interval since the performance of the History & Physical I have noted the following changes of clinical significance: no changes noted
[2021-10-20] MEDS ORDERED: MIDAZOLAM HCL 1 MG/ML 2ML VIAL ONE ×3 (08:02→10:02)
[2021-10-20] MEDS ORDERED: LIDOCAINE 2% 20 MG/ML 5 ML SYR IV ONE (08:02)
[2021-10-20] MEDS ORDERED: PROPOFOL IV EMULSION 10 MG/ML 20 ML VIAL IV ONE ×2 (08:02→10:34)
[2021-10-20] MEDS ORDERED: fentaNYL citrate 100 MCG/2 ML VIAL ONE (08:02)
[2021-10-20] MEDS ORDERED: BUPIVACAINE LIPOSOME 1.3% 266 MG/20 ML VIAL ONE (08:36)
[2021-10-20] MEDS ORDERED: SODIUM CHLORIDE 0.9% PF 50 ML VIAL ONE (08:36)
[2021-10-20] MEDS ORDERED: BUPIVACAINE/EPINEPHRINE 0.25% 1:200,000 30 ML VIAL ONE (08:36)
[2021-10-20] MEDS ORDERED: ONDANSETRON INJ 2 MG/ML 2 ML VIAL IV PRN ×2 (08:56→12:01)
[2021-10-20] MEDS ORDERED: ePHEDrine sulfate 50 MG/ML AMP IV PRN (08:56)
[2021-10-20] MEDS ORDERED: fentaNYL citrate 100 MCG/2 ML VIAL IV PRN (08:56)
[2021-10-20] MEDS ORDERED: ATROPINE SULFATE 0.1 MG/ML 10ML SYR IV PRN (08:56)
[2021-10-20] MEDS ORDERED: METOCLOPRAMIDE HCL INJ 5 MG/ML 2 ML VIAL ONE (09:29)
[2021-10-20] MEDS ORDERED: ONDANSETRON INJ 2 MG/ML 2 ML VIAL ONE (09:30)
[2021-10-20] MEDS ORDERED: ePHEDrine sulfate 50 MG/ML AMP ONE (09:30)
[2021-10-20] MEDS ORDERED: PHENYLEPHRINE 100MCG/ML 5ML SYR ONE (09:30)
--- NOTE | 2021-10-20 10:54 | Operative Report ---
PG Post Operative Report Pre & Post Diagnosis Operation Date: 10/20/21 08:50 Pre-Op Diagnosis: Left Knee Osteoarthritis Post-Op Diagnosis: Left Knee Osteoarthritis I identified the patient and participated in the time-out.: Yes Procedure Operation Date: 10/20/21 08:50 Actual Procedures p Left Total Knee Arthroplasty, Cemented(Left) - Kaden Petty MD Surgeon Kaden Petty MD Head Butler Robert Edmondson PA-C Estimated Blood Loss 50 Findings Consistent with Post-Op Diagnosis Operative findings were advanced left knee tricompartment DJD. She had extensive grade 4 [id number] disease in all 3 compartments with a fairly large knee joint effusion and a flexion contracture about 10 to 15 degrees. Specimens Left knee sent for pathology Anesthesia Type Spinal MAC Complications none Disposition Accompanied Patient To Recovery: No Indications Patient is a 66-year-old female has had a long history of multiple joint problems. She has had both hips replaced in the past. Over time she developed increased pain discomfort in both knees. She been through extensive conservative treatment which became less successful over time. Knees are very stiff. She elected proceed with left total knee replacement. Description of Procedure Operative implants consist of: 1 Biomet Vanguard size 67.5 left posterior stabilized femoral component. 2. Biomet size 71 tibial tray. 3. 10 mm posterior stabilized polyethylene insert. 4. 31 x 8 all probably patella. The patient was taken the operating, identified, and placed on the operating table supine position protectors were properly padded. IV antibiotics tried by anesthesia team. A spinal anesthetic and abductor canal block had provided in the holding area. Chinchilla catheter was placed in sterile fashion. A left thigh tent was then placed in the left lower extremities then prepped and draped in usual sterile fashion. The left leg was elevated exsanguinated with use of an Esmarch and the tourniquet was set at 300 mmHg. An anterior approach to the left knee was then performed to longitudinal incision centered over the patella. Sharp dissection was carried through subcutaneous tissue down the extensor mechanism. A medial parapatellar arthrotomy incision was made. Some subperiosteal dissection was carried out medially. The fat pad was resected from Neath patella tendon. Lateral patellofemoral ligament was released. Patella subluxated laterally and the knee was flexed. The osteophytes were taken off distal femur. The ACL and PCL were then released from distal femur and the tibia subluxated anteriorly. External tibial alignment jig was then placed in the interface the tibia and adjusted 14 mm medially. Proximal tibial cut was made removed 2 mm from the most deficient aspect medial tibial plateau. Some osteophytes taken off medially. The tibia sized to a size 71. Attention drawn the femur. The distal femur examined the sharp drill. Intramedullary canal was suction. A left 5 degree valgus cutting guide was placed. Distal femoral cutting block was pinned in place. Distal femoral cut was made to take an additional 5 mm off the distal femur due to her flexion contracture. The femur was then sized to a size 67.5. The AP cutting block was pinned parallel to the epicondylar axis which was 5 degrees of external rotation. The anterior cut, anterior chamfer, posterior cut, posterior chamfer cuts were made. The box cutting guide was placed in just slight lateral and the box cut was made. The knee was flexed. The remnants of the medial lateral menisci were excised. The osteophytes were taken off the posterior aspect of the femur. A trial femoral component was placed. Tibial tray was pinned in maximum external rotation and the drill and stem punch were used to create defect in proximal tibia for the tibial tray. The knee was then trialed and the 10 mm insert fit most appropriately. Attention drawn the patella. The patella was cleaned of all soft tissues. Patella thickness measured 20 mm in thickness was cut down to 13. Was sized to a size 31 patella. The lug holes were drilled for the 31 patella. The lateral osteophyte was removed. Patella button was placed. Knee was taken through range of motion patella tracked nicely with no thumbs test. Attention drawn to placing permanent components. All trial components were removed. Bone plug was placed in the distal femur limit blood loss. Double batch Palacos G cement was mixed. A Biomet Vanguard size 67.5 left posterior stabilized femoral component, a size 71 tibial tray, a 10 mm posterior stabilized polyethylene insert, and a 31 x 8 all Paller patella then cemented in place. Knee was brought out into full extension total cement hardened. Final cement check was then performed. Pericapsular tissues were injected with total of 100 cc of combination of 20 cc of Exparel, 30 cc normal saline, 50 cc of quarter percent Marcaine with epinephrine. Patient did receive 1 g tranexamic acid. The tourniquet was let down for final tourniquet time of 58 minutes. Hemostasis reduced electrocautery. Extensor mechanism closed with combination 1 PDS suture #1 Vicryl suture in a [id number] fashion. Extensor mechanism checked found to be intact. Subcutaneous tissue then closed with 2 Dexon suture in buried interrupted fashion skin was closed skin marek. Leg was then cleaned and dried and a sterile dressing was Xeroform, 4 x 4's, sterile cast padding, Ino bandage were applied. Patient then transferred to the recovery in stable condition. The patient tolerated procedure well and there were no complications. Robert Edmondson, my physician pediatric physician assistant, was present for the entire procedure. His assistance was essential and required for appropriate patient positioning, prepping and draping, surgical exposure, performing the technical details of the operation, placement the implants, closure of the wound, and placement of the sterile bandage. I attest to the content of the Intraoperative Record and any orders documented therein. Any exceptions are noted below.
--- NOTE | 2021-10-20 11:09 | XRay Report ---
XR knee LT 1 or 2V routine CLINICAL HISTORY: Postoperative evaluation. COMPARISON: Knee radiographs August 24, 2021. FINDINGS: Alignment of the total left knee arthroplasty is anatomic. No periprosthetic fracture or u nexpected radiopaque foreign body. There are skin marek. IMPRESSION: Expected findings following total left knee arthroplasty. ACT 112: Negative or not required by law. Electronically signed by: Kev Flores M.D. 10/20/2021 11:08 AM
--- NOTE | 2021-10-20 11:11 | Anesthesiology Progress Note ---
Date of Service October 20, 2021 Anesthesia Post Procedure Vital Signs Vital Signs: Temp Pulse Resp BP Pulse Ox O2 Del Method 10/20/21 10:55 56 L 18 116/61 98 Room Air 10/20/21 10:45 98.1 F 72 18 125/63 97 Room Air 10/20/21 06:46 98.4 F 75 22 178/99 H 96 Room Air Transfer of Care Handoff Completed per policy Notes Mental Status: alert / awake / arousable and participated in evaluation Patient Amnestic to Procedure: Yes Nausea / Vomiting: adequately controlled Pain: adequately controlled Airway Patency, RR, SpO2: stable & adequate BP & HR: stable & adequate Hydration State: stable & adequate Neuraxial Anesthesia: was administered and sensory block is resolving Anesthetic Complications: no major complications apparent and Pt Satisfied with anesthetic care
[2021-10-20] MEDS ORDERED: bisacodyL 10 MG SUPP PR PRN (12:01)
[2021-10-20] MEDS ORDERED: METOCLOPRAMIDE HCL INJ 5 MG/ML 2 ML VIAL IV PRN (12:01)
[2021-10-20] MEDS ORDERED: HYDROmorphone INJ 0.5 MG/0.5 ML SYR IV PRN (12:01)
[2021-10-20] MEDS ORDERED: MAGNESIUM HYDROXIDE SUSP 30 ML UDC PO PRN (12:01)
[2021-10-20] MEDS ORDERED: diphenhydrAMINE Capsule 25 MG CAP PO PRN (12:01)
[2021-10-20] MEDS ORDERED: NALOXONE HCL 0.4 MG/1 ML VIAL/CARP IV PRN (12:01)
[2021-10-20] MEDS ORDERED: ALUMINUM/MAGNESIUM SUSP 30 ML UDC PO PRN (12:01)
[2021-10-20] MEDS: SODIUM CHLORIDE 0.9% 1000ML 1,000 ML IV SCH ×2 (12:17→20:11)
[2021-10-20] MEDS: KETOROLAC 30 MG/ML VIAL IV SCH ×2 (13:53→20:14)
[2021-10-20] MEDS: ACETAMINOPHEN 500 MG TAB PO SCH ×2 (15:22→22:39)
[2021-10-20] MEDS: Scopolamine CHECK PATCH PLACEMENT SCH (15:23)
[2021-10-20] MEDS ORDERED: TRANEXAMIC ACID / 0.7% NACL 1,000 MG/100 ML BAG IV SCH (16:45)
[2021-10-20] MEDS: ceFAZolin 2000MG 2,000 MG/15 ML SYR IV SCH (17:25)
[2021-10-20] MEDS: ASCORBIC ACID 500 MG TAB PO SCH (17:25)
[2021-10-20] MEDS: traMADol HCL 50 MG TABLET PO PRN ×2 (17:35→17:36)
[2021-10-20] MEDS: PANTOprazole 40 MG TAB PO SCH (20:14)
[2021-10-20] MEDS: METOPROLOL TARTRATE 50 MG TAB PO SCH (20:15)
[2021-10-20] MEDS: DOCUSATE SODIUM 100 MG CAP PO SCH (20:16)
[2021-10-20] MEDS ORDERED: ROSUVASTATIN CALCIUM 5 MG TAB PO SCH (21:00)
[2021-10-20] MEDS ORDERED: SENNA 8.6 MG TAB PO SCH (21:00)
[2021-10-21] MEDS: Scopolamine CHECK PATCH PLACEMENT SCH ×2 (00:24→07:58)
[2021-10-21] MEDS: ceFAZolin 2000MG 2,000 MG/15 ML SYR IV SCH (00:24)
[2021-10-21] MEDS: KETOROLAC 30 MG/ML VIAL IV SCH ×3 (00:25→14:03)
[2021-10-21] MEDS: traMADol HCL 50 MG TABLET PO PRN ×2 (04:25→11:08)
[2021-10-21] MEDS: SODIUM CHLORIDE 0.9% 1000ML 1,000 ML IV SCH (06:08)
[2021-10-21] MEDS: ACETAMINOPHEN 500 MG TAB PO SCH ×2 (06:09→14:03)
[2021-10-21 06:30] LABS: Hematocrit (blood only) 32.4 % (34.1-44.9); Hemoglobin 10.4 g/dl (12.0-16.0); Mean Corpuscular Hemoglobin 29.8 pg (25.0-34.0); Mean Corpuscular Hgb Conc 32.1 g/dL (32.0-36.0); Mean Corpuscular Volume 92.8 fL (80.0-100.0); Mean Platelet Volume 10.2 fL (9.4-12.3); Platelet Count 359 K/uL (130-400); RDW Coefficient of Variation 13.5 % (11.5-14.5); RDW Standard Deviation 45.3 fL (36.4-46.3); Red Blood Count 3.49 M/uL (3.93-5.22); White Blood Count 9.71 K/ul (4.8-10.8)
[2021-10-21 06:50] LABS: BUN Creatinine Ratio 16.5 (10-20); Creatinine Clr Calc Pharmacy 68.4 ml/min; Est GFR (African American) 61.7 ml/min; Est GFR (Non-African American) 53.2 ml/min; Potassium 4.4 mmol/L (3.5-5.1)
[2021-10-21] MEDS ORDERED: dexAMETHasone 10 MG in SYRINGE 0 ML IV SCH (08:00)
[2021-10-21] MEDS: ASCORBIC ACID 500 MG TAB PO SCH (08:51)
[2021-10-21] MEDS: PANTOprazole 40 MG TAB PO SCH (08:52)
[2021-10-21] MEDS: DOCUSATE SODIUM 100 MG CAP PO SCH (08:52)
[2021-10-21] MEDS: METOPROLOL TARTRATE 50 MG TAB PO SCH (08:52)
[2021-10-21] MEDS ORDERED: MULTIVITAMIN TAB PO SCH (09:00)
[2021-10-21] MEDS ORDERED: lisinopril 20 MG TAB PO SCH (09:00)
[2021-10-21] MEDS ORDERED: MAGNESIUM OXIDE 400 MG TAB PO SCH (09:00)
[2021-10-21] MEDS ORDERED: NON-FORMULARY MEDICATION (Multivitamin Tablet) PO SCH (09:00)
[2021-10-21] MEDS ORDERED: CHLORTHALIDONE 25 MG TAB PO SCH (09:00)
[2021-10-21] MEDS ORDERED: DOCUSATE SODIUM/SENNA 50/8.6MG TAB PO SCH (09:00)
[2021-10-21] MEDS ORDERED: APIXABAN 2.5 MG TAB PO SCH (11:00)
--- NOTE | 2021-10-21 12:10 | Progress Notes ---
DATE OF SERVICE: 10/21/2021. SUBJECTIVE: A 66-year-old white female, postoperative day 1 from a left knee replacement. She is do ing okay. She had kind of a rough night with pain, but it is under better control now. No chest daniel n or shortness of breath. She feels like she did pretty good at therapy. No chest pain or shortness of breath. Not feeling dizzy or lightheaded. OBJECTIVE: VITAL SIGNS: Temperature is 37.0. Vital signs are stable. GENERAL: Physical examination shows a pleasant middle-aged female. She is sitting up in bed and loo ks pretty comfortable currently. LUNGS: Clear to auscultation. HEART: Regular rate and rhythm. ABDOMEN: Soft, nontender, nondistended. EXTREMITIES: Grossly neurovascularly intact except as follows: Examination of the left leg reveals the dressing to be clean, dry, and intact. She can dorsiflex and plantarflex her foot appropriately. She can do a straight leg raise with quite a bit of effort. Moderate amount of pain. LABORATORY DATA: Hemoglobin is 10.4. Hematocrit 32.4. Electrolytes are stable. ASSESSMENT: A 66-year-old white female, postoperative day 1 from a left knee replacement, doing reas onably well. Had a bad bout of pain in the middle of the night, doing better. PLAN: 1. DVT prophylaxis includes thigh-high TEDs, SCDs, and she is back on her normal dose of Eliquis sta rting tomorrow. We will start her on prophylactic dose today. 2. PT, OT, weightbear as tolerated. Left total knee protocol. 3. Pain control, doing okay with current pain regimen. 4. Disposition: She is planning to be discharged to home with home health. We are going to see how her day goes pain phillips and make sure she does not have any more severe episodes like she had yesterd tierra. Job ID: [id number]
== END 2021-10-21 14:34 | disposition home health service (06) ==
LOC: ASU 06:23 → 3E 06:23

== ENCOUNTER 2022-04-27 06:30 | Observation (INO) ==
--- NOTE | 2022-03-30 11:24 | PAT Medication Instructions ---
Medication Instructions Date of Service March 30, 2022 Home Medications Medication Instructions Recorded apixaban 5 mg tablet (Eliquis) 5 mg PO BID #60 tabs 08/20/21 magnesium oxide 400 mg (241.3 mg 400 mg PO QAM #30 tabs 08/20/21 magnesium) tablet metoprolol tartrate 50 mg tablet 50 mg PO BID #60 tabs 08/20/21 acetaminophen 500 mg capsule 1,000 mg PO TID Pain 30 days #180 10/18/21 caps ondansetron HCl 4 mg tablet 4 mg PO Q6 PRN nausea #15 tabs 10/18/21 sennosides 8.6 mg-docusate sodium 1 tab-cap PO DAILY #14 tabs 10/18/21 50 mg tablet (Senokot-S) tramadol 50 mg tablet 50 - 100 mg PO Q6H PRN pain #40 11/03/21 tabs diltiazem HCl 120 mg capsule,extended release 24 hr, controlled 120 mg PO HS lisinopril 20 mg tablet 20 mg PO QAM multivitamin 1 tab PO QAM omeprazole 20 mg delayed release,disintegrating tablet 20 mg PO BID amoxicillin 500 mg tablet 2,000 mg PO UD PRN 1 HOUR PRIOR TO DENTAL PROCEDURES apixaban 5 mg tablet (Eliquis) 5 mg PO BID chlorthalidone 25 mg tablet 25 mg PO QAM magnesium oxide 400 mg (241.3 mg magnesium) tablet 400 mg PO QAM metoprolol tartrate 50 mg tablet 50 mg PO BID rosuvastatin 5 mg tablet (Crestor) 5 mg PO HS acetaminophen 500 mg capsule 1,000 mg PO TID ondansetron HCl 4 mg tablet 4 mg PO Q6 PRN sennosides 8.6 mg-docusate sodium 50 mg tablet (Senokot-S) 1 tab-cap PO DAILY tramadol 50 mg tablet 50 - 100 mg PO Q6H PRN cholecalciferol (vitamin D3) 50 mcg (2,000 unit) capsule (Vitamin D3) 50 mcg PO QAM Continue as directed ondansetron HCl 4 mg tablet 4 mg PO Q6 PRN(if needed) amoxicillin 500 mg tablet 2,000 mg PO UD PRN 1 HOUR PRIOR TO DENTAL PROCEDURES (if needed) ASK your prescriber and surgeon apixaban 5 mg tablet (Eliquis) 5 mg PO BID(in order for spinal or epidural anesthesia, Eliquis needs to be stopped 72 hours/3 days before surgery. Please check if okay with doctor that prescribes this to you) DO NOT take the morning of surgery lisinopril 20 mg tablet 20 mg PO QAM multivitamin 1 tab PO QAM chlorthalidone 25 mg tablet 25 mg PO QAM magnesium oxide 400 mg (241.3 mg magnesium) tablet 400 mg PO QAM sennosides 8.6 mg-docusate sodium 50 mg tablet (Senokot-S) 1 tab-cap PO DAILY cholecalciferol (vitamin D3) 50 mcg (2,000 unit) capsule (Vitamin D3) 50 mcg PO QAM Take morning of surgery With a small sip of water, OTHERWISE NOTHING TO EAT OR DRINK AFTER MIDNIGHT: omeprazole 20 mg delayed release,disintegrating tablet 20 mg PO BID metoprolol tartrate 50 mg tablet 50 mg PO BID acetaminophen 500 mg capsule 1,000 mg PO TID tramadol 50 mg tablet 50 - 100 mg PO Q6H PRN(if needed) Take evening before surgery diltiazem HCl 120 mg capsule,extended release 24 hr, controlled 120 mg PO HS omeprazole 20 mg delayed release,disintegrating tablet 20 mg PO BID metoprolol tartrate 50 mg tablet 50 mg PO BID rosuvastatin 5 mg tablet (Crestor) 5 mg PO HS acetaminophen 500 mg capsule 1,000 mg PO TID tramadol 50 mg tablet 50 - 100 mg PO Q6H PRN(if needed) Other Notes If you have any questions please call us at [phone] or [phone] or [phone] or [phone]
--- NOTE | 2022-04-15 12:07 | Anesthesiology Consultation ---
Date of Service April 15, 2022 Assessment & Plan (1) Encounter for pre-operative examination: Chart Review Chart Review: Pending: Refer to Additional Notes / Consult section (pending cardio response if patient can proceed with surgery (in [facility]) and PCP clearance appt 04/23/22 ) and Patient seen in Pre Admission Testing - Awaiting response from cardio regarding if patient is optimized for surgery (message in [facility]) (pt with mild fluttering sensation in PAT; hx of paroxysmal a fib- follows with cardio; recently started on antibiotic for dental infection (tooth extracted 04/13/22); HR 99bpm on vitals and 108bpm on 04/15/22 EKG) - Awaiting routine PCP appt 04/23/22 at [facility] *Pt is NOT an acceptable Same Day Joint candidate due to comorbidities and BMI Per [facility] appt on 04/15/22, patient denies any recent travel or large group activities. Pt tested Covid positive 02/21/22 with home test- had fever, muscle aches and cough- treated with Paxlovid. Symptoms have since resolved. Pt is vaccinated for Covid. Preop Covid test done at [facility] appt on 04/15/22= positive (pt is asymptomatic and DOS is 12 days from Covid positive test- pt can proceed without additional testing from anesthesia standpoint). Pt is scheduled as 23 observation- patient should not need repeat Milner test DOS. Educated on importance of using Covid precautions one week prior to surgery Pt seen by cardio 01/26/22= patient seen for routine cardiology follow-up. Since last visit she underwent successful left knee replacement. Paroxysmal atrial fibrillation [id number] score of 3 (Sex, Age, HTN). Now on chronic anticoagulation. Controlled in NSR on metoprolol and diltiazem. Hypertensioncontrolled. DyslipidemiaLDL improving. Stable cardiac symptoms. BP controlled on current medications. LDL and triglycerides trending down on low-dose Crestor. Currently maintaining NSR with metoprolol and diltiazem. Continue meds. Continue Eliquis. Follow-up in 6 months Left TKA 10/20/21= Done under SAB at L3-4 with one attempt. Per communication note from Kailee Duffy PA-C on 05/12/20="Patient scheduled for Left CHUCKY 05/27/[address] Petty. Patient s/p EGD with dilation 05/05/20 (S). Spoke with Dr. Cramer 05/12/20-he feels that patient is at higher risk for aspiration d/t history of esophageal motility disorder, achalasia and morbid obesity. He does not feel that the timing of the surgery will change this risk or anything further can be done to decrease it.He states greatest risk would be with general anesthesia(advised him that typically hip replacements are done under SAB + sedation).He did additionally advise patient to do clears the day before surgery to as well decrease risk of aspiration." Teaching & Discussion Pre-Anesthesia Teaching/Discussion Notes: Instructed NPO after midnight before surgery,except medications with 15 cc of water. Medication instructions provided according to the PAT guidelines. History Surgery Operation Date: 04/27/22 08:50 Proposed Procedures p Right Total Knee Arthroplasty - Kaden Petty MD Height/Weight Height: 5 ft 5.5 in Weight: 123.2 kg Allergies Allergy/AdvReac Type Severity Reaction Status Date / Time adhesive tape AdvReac Intermediate BLISTERS Verified 03/29/22 09:09 Medications Home Medications Medication Instructions Recorded Confirmed Last Taken diltiazem HCl 120 mg 120 mg PO HS 08/17/19 03/29/22 10/19/21 23:00 capsule,extended release 24 hr, controlled lisinopril 20 mg tablet 20 mg PO QAM 08/17/19 03/29/22 10/19/21 07:00 multivitamin 1 tab PO QAM 08/17/19 03/29/22 10/19/21 07:00 omeprazole 20 mg delayed 20 mg PO BID 08/17/19 03/29/22 10/20/21 06:00 release,disintegrating tablet amoxicillin 500 mg tablet 2,000 mg PO UD PRN 1 HOUR PRIOR TO 08/20/21 03/29/22 Unknown DENTAL PROCEDURES apixaban 5 mg tablet (Eliquis) 5 mg PO BID #60 tabs 08/20/21 03/29/22 10/17/21 07:00 chlorthalidone 25 mg tablet 25 mg PO QAM 08/20/21 03/29/22 10/19/21 07:00 magnesium oxide 400 mg (241.3 mg 400 mg PO QAM #30 tabs 08/20/21 03/29/22 10/19/21 07:00 magnesium) tablet metoprolol tartrate 50 mg tablet 50 mg PO BID #60 tabs 08/20/21 03/29/22 10/20/21 06:00 rosuvastatin 5 mg tablet (Crestor) 5 mg PO HS 08/20/21 03/29/22 10/19/21 23:00 acetaminophen 500 mg capsule 1,000 mg PO TID Pain 30 days #180 10/18/21 03/29/22 Unknown caps ondansetron HCl 4 mg tablet 4 mg PO Q6 PRN nausea #15 tabs 10/18/21 03/29/22 Unknown sennosides 8.6 mg-docusate sodium 1 tab-cap PO DAILY #14 tabs 10/18/21 03/29/22 Unknown 50 mg tablet (Senokot-S) tramadol 50 mg tablet 50 - 100 mg PO Q6H PRN pain #40 11/03/21 03/29/22 Unknown tabs cholecalciferol (vitamin D3) 50 50 mcg PO QAM 03/29/22 03/29/22 Unknown mcg (2,000 unit) capsule (Vitamin D3) Past Medical History Medical History (Updated 04/16/22 @ 15:12 by Gloria Samuel PA-C) Achalasia Follows with GI - did have esophageal surgery - still gets heartburn and esophageal spasms - GI aware Basal cell carcinoma S/p removed Dyslipidemia Per records Esophageal dysmotility Follows with GI GERD (gastroesophageal reflux disease) Follows with GI History of COVID-19 Feb 21, 2022 > home test > treated with Paxlovid > all resolved History of pancreatitis Hx of Clostridium difficile infection Hx-1997 Hypertension Labile LVH (left ventricular hypertrophy) Mild/concentric 08/2021 Morbid obesity Paroxysmal atrial fibrillation On Eliquis, follows with [facility] cardio Posterior vitreous detachment Resolved on own Prediabetes Exercise / Class Metabolic Activity II 4-5 Yardwork/Stairs/Walk up hill (one flight of stairs - no chest pain or SOB ) Past Family History Family History Other No family history of adverse response to anesthesia Past Surgical History Surgical History History of basal cell carcinoma (BCC) excision History of cardiac cath 1999 [place] - NO STENTS History of cholecystectomy History of colonoscopy History of ERCP History of esophagogastroduodenoscopy (EGD) recently with balloon dilation 05/05/20 at [place] History of removal of skin mole History of right hip replacement 09/04/19: SAB at L3-L4. History of tooth extraction History of total left hip arthroplasty 05/27/20: SAB at L3-L4 1 attempt. History of total left knee replacement Past Anesthesia History No Hx of Anesthesia Complications and No Family Hx of Anesthesia Complications History of PONV No Hx of PONV and Hx of Motion Sickness Social History Smoking Status: Never smoker Do You Dip or Chew Tobacco: No Hx Alcohol Use: No Hx Substance Use: No substance use type: does not use Review of Systems Heart flutttering - started today. No dizziness Hx of snoring- had home sleep study- no NEGIN Patient denies chest pain, shortness of breath, dyspnea on exertion,cough, wheezing. No hx of seizures, stroke, NM. No hx of blood clots or blood transfusions Physical Exam Vital Signs VITALS BP 119/81 P 99 TEMP 98.5 SP02 95% RESP 16 Constitutional no acute distress ENMT Mouth: no TMJ clicking Thyromental Distance: < 3.5 Finger Breadths (3.0) Mallampati Class: III Missing molars (just had right lower molar extracted 04/13/22- Dr. Jovanny andersen) Neck + limited neck extension (mild ) Respiratory normal respiratory effort; no respiratory distress Auscultation: lungs clear to auscultation bilaterally; no wheezes Cardiovascular Heart Sounds: no murmur Vessels: no carotid bruit Irregular Musculoskeletal Spine: no pain with cervical ROM Extremities: extremities normal to inspection Psychiatric Orientation: alert Lab Results Anesthesia Preop Results Results Anesthesia Widget: WBC 9.27 K/ul (4.8-10.8) 04/15/22 Hgb 13.1 g/dl (12.0-16.0) 04/15/22 Hct 39.2 % (37.0-47.0) 04/15/22 Plt 450 K/uL (130-400) H 04/15/22 Na 138 mmol/L (136-145) 04/15/22 K 4.2 mmol/L (3.5-5.1) 04/15/22 Cl 103 mmol/L (98-107) 04/15/22 CO2 29 mmol/L (21-32) 04/15/22 BUN 15 mg/dl (6-23) 04/15/22 Creat 0.96 mg/dl (0.6-1.2) 04/15/22 Glucose Level 103 mg/dl (70-99(Fasting)) H 04/15/22 PT 10.5 Seconds (9.0-12.0) 04/15/22 PTT 33.4 Seconds (21.0-31.0) H 04/15/22 INR 1.0 (0.9-1.1) 04/15/22 HA1c 6.3 % (4.5-5.6) H 04/15/22 Blood Type O Positive 04/15/22 Antibody Screen NEGATIVE 04/15/22 Testing Electrocardiogram Date: 04/15/22 Atrial fibrillation with RVR at 108 bpm Chest X-Ray Date: 08/20/21 Findings: + NAD FINDINGS: Lung volumes are normal. Lungs are clear. There is no pneumothorax or pleural effusion. Cardiac size is normal. Mediastinal contours are normal. There is no evidence for pulmonary edema. Kyphotic positioning is noted. Echocardiogram Date: 08/20/21 EF: 60-65% LV Function: normal RWMA: + none Other Findings: + LVH (Mild/concentric) Valvular Disease: + no significant valvular disease Atrial fibrillation with ventricular rates in the range of 90-110 bpm COVID-19 Risk Screen Screening Information COVID-19 Screen Date: 04/15/22 Exposure 21 Days Family/Household +COVID Last 21 Days: No Exposure 10 Days Any COVID Exposure Last 10 Days: No Symptoms Last 10 Days Experienced COVID Sx Last 10 Days: No + COVID 0-90 Days COVID + in Last 0-90 Days: Yes + COVID Test 0-10 Day: No + COVID Test 11-90 Day: Yes Date/Place of COVID-19 Test: 02/21/22- home test What were Your COVID-19 Symptoms: Fever, muscle aches, cough Currently Having Symptoms Related to COVID: No Were You Hospitalized due to COVID-19 and Where: No COVID Testing Site COVID-19 Preop/Pre-Procedure Testing Site: [facility] (Preop Covid testing at [facility] appt 04/15/22= positive ) Risk Plan COVID Risk Plan: Last 11-90D + CoV Test Patient Education COVID Preop Screening Education Complete: Yes
--- NOTE | 2022-04-24 10:22 | History and Physical Report ---
CHIEF COMPLAINT: Persistent right knee pain and discomfort and stiffness. HISTORY OF PRESENT ILLNESS: The patient is a 67-year-old female well known to me from multiple ortho pedic interventions in the past. She has had both hips replaced as well as her left knee. She has g ot extensive arthritis in multiple joints. She is just managing this over the years, has become less successful. She has had both hips replaced in her left knee and has done well. She continues to be limited by right knee pain and discomfort. She has been through extensive conservative care, which really did not help at all. She describes global pain. She has got constant pain. The more she is up on her leg, the more it hurts. She limps on the right side. She is happy with other joints and w ould like to have her right knee replaced. PAST MEDICAL HISTORY: Significant for: 1. Paroxysmal atrial fibrillation, on Eliquis, but the most recent EKG is normal sinus rhythm. 2. Gastroesophageal reflux disease with some esophageal motility disorders. 3. Obesity, BMI of 45. 4. Back pain. 5. Basal cell skin cancer. PAST SURGICAL HISTORY: 1. Left hip replacement 05/28/2020. 2. Right hip replacement 2-1/2 years ago. 3. Left knee replacement now about 5 months out. 4. Multiple endoscopies. ALLERGIES: None. CURRENT MEDICATIONS: Include: 1. Eliquis. 2. Aspirin. 3. Chlorthalidone. 4. Diltiazem. 5. . 6. Lisinopril. 7. Magnesium. 8. Metoprolol. 9. Multivitamin. 10. Omeprazole. 11. Potassium chloride. 12. Simvastatin. SOCIAL HISTORY: A 67-year-old female. She is . 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 D oes not smoke. FAMILY HISTORY: Noncontributory. REVIEW OF SYSTEMS: Negative for diabetes. No chest pain or shortness of breath. No history of DVT or PE. She is on Eliquis for paroxysmal atrial fibrillation. She is followed by [facility] . PHYSICAL EXAMINATION: GENERAL: Shows a pleasant middle-aged female, looks to be in reasonably good health. HEENT: Benign. NECK: Supple. No lymphadenopathy. LUNGS: Clear to auscultation. HEART: Has a regular rate and rhythm. ABDOMEN: Soft, nontender, nondistended. EXTREMITIES: Grossly neurovascularly intact except as follows. Examination of the right knee reveals the patient walks independently. She does walk with a bit of a limp on the right side. She has got a varus deformity of the right knee. A fairly stiff knee with about a 5-10 degree flexion contracture and can bend to about 110. No pain with hip motion. X-RAYS: X-rays of the right knee reviewed. It shows advanced right knee tricompartment DJD. She vega s got advanced disease in all three compartments. Osteophytes in all 3 compartments. ASSESSMENT: A 67-year-old female status post bilateral hip replacements as well as a left knee repla cement in the past with advanced right knee degenerative joint disease. She is limited by her knee p ain and would like to have her right knee fixed. PLAN: We will take her to the operating room and do right total knee replacement. The risks and debbie efits of this procedure were explained to the patient and include but not limited to DVT, PE, , infection, neurological injury, vascular injury, bleeding problem, pain, limited range of motion, sti ffness, failure to relieve her symptoms, incomplete relief of symptoms, need for further surgery in t he future, etc. The patient understands and desires to proceed. Informed consent was obtained. She is going to hold her Eliquis 3 days preop. Hold the lisinopril on the morning of surgery. She c an take the metoprolol and omeprazole. She knows to eat a clear diet, the day before surgery due to esophageal motility disorder as per Dr. Cramer, as he thinks she is at significant risk for asp iration issues. She is planning to be discharged to home and do therapy at [facility]. Job ID: [id number]
[~2022-04-27 06:30] MED LIST changes: -BUPIVACAINE 0.5 % 5 MG/1 ML PF 10ML VIAL ONE; -GABAPENTIN 300 MG CAP PO SCH; +LIDOCAINE 2% MPF LOCAL 5 ML VIAL INFIL ONE; +MIDAZOLAM HCL 1 MG/ML 2ML VIAL ONE; +ONDANSETRON INJ 2 MG/ML 2 ML VIAL ONE; +PROPOFOL IV EMULSION 10 MG/ML 20 ML VIAL IV ONE; -ROPIVACAINE 0.5% 5 MG/ML 30 ML VIAL ONE; -TRANEXAMIC ACID 1,000 MG **IV Pre-op IV SCH; +ceFAZolin 2000MG 2,000 MG/15 ML SYR IV SCH; +fentaNYL citrate 100 MCG/2 ML VIAL ONE
[2022-04-27] MEDS ORDERED: BUPIVACAINE 0.5 % 5 MG/1 ML PF 10ML VIAL ONE (06:39)
[2022-04-27] MEDS ORDERED: EPINEPHrine INJ 1 MG/ML AMP ONE (06:39)
[2022-04-27] MEDS ORDERED: DEXAMETHASONE SOD INJ 4 MG/ML VIAL ONE ×2 (06:39→09:33)
[2022-04-27] MEDS ORDERED: BUPIVACAINE 0.25% 30 ML VIAL ONE (06:40)
--- NOTE | 2022-04-27 06:52 | History & Physical Bridge Note ---
Date of Service April 27, 2022 History & Physical Bridge Note I have examined the patient, reviewed the History & Physical and in the interval since the performance of the History & Physical I have noted the following changes of clinical significance: no changes noted
[2022-04-27] MEDS ORDERED: ONDANSETRON INJ 2 MG/ML 2 ML VIAL ONE (07:34)
[2022-04-27] MEDS ORDERED: SODIUM CHLORIDE 0.9% PF 50 ML VIAL ONE (08:36)
[2022-04-27] MEDS ORDERED: BUPIVACAINE/EPINEPHRINE 0.25% 1:200,000 30 ML VIAL ONE (08:36)
[2022-04-27] MEDS ORDERED: BUPIVACAINE LIPOSOME 1.3% 266 MG/20 ML VIAL ONE (08:37)
[2022-04-27] MEDS ORDERED: fentaNYL citrate 100 MCG/2 ML VIAL IV PRN (09:20)
[2022-04-27] MEDS ORDERED: ePHEDrine sulfate 50 MG/ML AMP IV PRN (09:20)
[2022-04-27] MEDS ORDERED: ONDANSETRON INJ 2 MG/ML 2 ML VIAL IV PRN ×2 (09:20→11:33)
[2022-04-27] MEDS ORDERED: ATROPINE SULFATE 0.1 MG/ML 10ML SYR IV PRN (09:20)
[2022-04-27] MEDS ORDERED: ePHEDrine sulfate 50 MG/ML SYR ONE (09:33)
--- NOTE | 2022-04-27 10:33 | Operative Report ---
PG Post Operative Report Pre & Post Diagnosis Operation Date: 04/27/22 08:50 Pre-Op Diagnosis: Right Knee Degenerative Joint Disease Post-Op Diagnosis: Right Knee Degenerative Joint Disease I identified the patient and participated in the time-out.: Yes Procedure Operation Date: 04/27/22 08:50 Actual Procedures p Right Total Knee Arthroplasty, Cemented(Right) - Kaden Petty MD Surgeon Kaden Petty MD [employer] Supervisor Anay Edmondson PA-C Estimated Blood Loss 50 Findings Consistent with Post-Op Diagnosis operative findings of advanced right knee tricompartment DJD. She has extensive grade 4 [id number] disease in all 3 compartments. She had osteophytes in all 3 compartments. Fairly stiff knee with flexion contracture of 10 to 15 degrees. 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 She had both hips replaced as well as the left knee. She continues to be debilitated by her right knee pain discomfort and stiffness. She been through extensive conservative treatment which would became less successful over time. She is now like to proceed with total knee arthroplasty on the right side. Description of Procedure Operative implants consist of: 1. Biomet Vanguard size 65 right posterior stabilized femoral component. 2. Biomet size 67 tibial tray. 3. 10 mm posterior stabilized polyethylene insert. 4. 31 x 8 all poly patella. The patient was taken the op room, identified, and placed on the operating table supine position. All contact areas were appropriately padded. IV antibiotics from the anesthesia team. A spinal anesthetic and adductor canal block had provided in the holding area. A Chinchilla catheter was placed in sterile fashion. Right factor was then placed in the right lower extremities and prepped and draped in the usual sterile fashion. The right leg was elevated and exsanguinated with use of an Esmarch and the tourniquet was placed at 300 mmHg. An anterior approach of the right knee was then performed to longitudinal incision centered over the patella. Sharp dissection was through subcutaneous tissue down the extensor mechanism. A medial parapatellar arthrotomy incision was made. Some subperiosteal dissection was carried out medially. The fat pad was resected from the patella tendon. The lateral patellofemoral ligament was released. Patella subluxated laterally the knee was flexed the osteophytes taken on distal femur. The ACL and PCL were then released from the distal femur. The tibia subluxated anteriorly. The external tibial alignment jig was then placed in the interface the tibia and adjusted 14 mm medially. The proximal tibial cut was made to remove about 2 to 3 mm of bone from the medial side. The tibia sized to a size 67. Attention drawn to the femur. The distal femur exam with a sharp drop with intramedullary canal was suction. Right 5 degree valgus cutting guide was placed. This femoral cutting block was pinned in place. This femoral cut was made to take an additional 3 mm of bone off distal femur. Femur was then sized to a size 65. Sized exactly to a 65. The AP cutting block was pinned parallel to the epicondylar axis which was 4 degrees of external rotation. The anterior cut, anterior chamfer, posterior cut, posterior chamfer cuts were made. The box cutting guide was placed and just slightly lateral and the box cut was made. The knee was flexed. The remnants of the medial and lateral menisci were excised. The osteophytes were taken off the posterior aspect of the femur. Trial femoral component was placed. The tibial tray was pinned in maximum external rotation and the drill and stem punch were used to create the defect in the proximal tibia for the tibial tray. The knee was then trialed with a 10 mm insert fit most appropriately. Attention drawn to the patella. The patella was cleaned of all soft tissues. Patella thickness measured 21 mm in thickness was cut down to 14. Was sized to a size 31 patella. The lug holes were drilled for 31 patella. The lateral osteophytes removed. Patella button was placed. Knee was taken through range of motion patella tracked nicely with no thumbs test. Attention drawn to place and permanent components. All trial components were removed. Bone plug was placed into the distal femur limit blood loss.Palacos G cement was mixed. Biomet ResponseTekguard size 65 right posterior stabilized femoral component, size 67 tibial tray, a 10 mm posterior stabilized polyethylene insert, and a 31 x 8 all-poly patella then cemented in place. Knee was brought out into full extension till cement hardened. Final cement check was then performed. The pericapsular tissues were injected with a total of 100 cc of combination of 20 cc of Exparel, 30 cc normal saline, 50 cc of quarter percent Marcaine with epinephrine. The patient did receive 1 g of tranexamic acid. The tourniquet was let down for final tourniquet time 52 minutes. Hemostasis assured with electrocautery. Extensor mechanism closed with combination 1 PDS suture and #1 Vicryl suture in a [id number] fashion. The extensor mechanism checked found to be intact and the subcutaneous tissue then closed with 2 Dexon suture in buried interrupted fashion skin was closed skin marek. Leg was then cleaned and dried and a sterile dressing with Xeroform, 4 fours, sterile cast padding, Ino bandage were applied. Patient then transferred to the recovery room in stable condition. Patient tolerated the procedure well and there were no complications. Robert Edmondson, my physician switchboard operator assistant, was present for the entire procedure. His assistance was essential and required for appropriate patient positioning, prepping and draping, surgical exposure, performing the technical details of the operation, placement the implants, closure of the wound, and placement of the sterile bandage. I attest to the content of the Intraoperative Record and any orders documented therein. Any exceptions are noted below.
--- NOTE | 2022-04-27 11:13 | Anesthesiology Progress Note ---
Date of Service April 27, 2022 Anesthesia Post Procedure Vital Signs Vital Signs: Temp Pulse Pulse Resp BP Pulse Ox O2 Del Method 04/27/22 11:10 62 18 140/74 96 Room Air 04/27/22 11:00 36.1 C L 58 L 15 136/61 96 Room Air 04/27/22 10:50 36.1 C L 59 L 15 127/71 96 Room Air 04/27/22 10:41 64 21 121/47 L 99 Oxymask 04/27/22 10:31 36.4 C L 69 14 130/57 L 99 Oxymask 04/27/22 07:12 37.2 C 60 20 159/75 H 96 Room Air O2 Flow Rate 04/27/22 11:10 04/27/22 11:00 04/27/22 10:50 04/27/22 10:41 5 04/27/22 10:31 5 04/27/22 07:12 Pain Intensity Right Knee: Pain Intensity: 4 Transfer of Care Handoff Completed per policy Notes Mental Status: alert / awake / arousable Patient Amnestic to Procedure: Yes Nausea / Vomiting: adequately controlled Pain: adequately controlled Airway Patency, RR, SpO2: stable & adequate BP & HR: stable & adequate Hydration State: stable & adequate Neuraxial Anesthesia: was administered and sensory block is resolving Anesthetic Complications: no major complications apparent and Pt Satisfied with anesthetic care
--- NOTE | 2022-04-27 11:16 | XRay Report ---
TWO VIEWS RIGHT KNEE CLINICAL HISTORY: Postoperative examination. FINDINGS: AP and crosstable lateral portable views of the right knee are obtained. A right knee arthr oplasty is in near anatomic alignment. There has been undersurface remodeling of the patella. No acut e fracture is seen. There are expected postoperative changes around the knee including skin clips, so ft tissue edema, and subcutaneous gas. IMPRESSION: Expected postoperative changes status post right knee arthroplasty. No acute fracture is seen. ACT 112: Negative or not required by law. Electronically signed by: Isak Quinn M.D. 04/27/2022 11:15 AM
[2022-04-27] MEDS ORDERED: traMADol HCL 50 MG TABLET PO PRN (11:33)
[2022-04-27] MEDS ORDERED: diphenhydrAMINE Capsule 25 MG CAP PO PRN (11:33)
[2022-04-27] MEDS ORDERED: METOCLOPRAMIDE HCL INJ 5 MG/ML 2 ML VIAL IV PRN (11:33)
[2022-04-27] MEDS ORDERED: ALUMINUM/MAGNESIUM SUSP 30 ML UDC PO PRN (11:33)
[2022-04-27] MEDS ORDERED: NALOXONE HCL 0.4 MG/1 ML VIAL/CARP IV PRN (11:33)
[2022-04-27] MEDS ORDERED: bisacodyL 10 MG SUPP PR PRN (11:33)
[2022-04-27] MEDS ORDERED: MAGNESIUM HYDROXIDE SUSP 30 ML UDC PO PRN (11:33)
[2022-04-27] MEDS ORDERED: HYDROmorphone INJ 0.5 MG/0.5 ML SYR IV PRN (11:33)
[2022-04-27] MEDS: SODIUM CHLORIDE 0.9% 1000ML 1,000 ML IV SCH ×2 (11:46→21:51)
[2022-04-27] MEDS: traMADol HCL 50 MG TABLET PO PRN ×2 (11:51→20:39)
[2022-04-27] MEDS: KETOROLAC TROMETHAMINE 15 MG/ML VIAL IV SCH ×3 (12:26→23:39)
[2022-04-27] MEDS: ACETAMINOPHEN 500 MG TAB PO SCH ×2 (14:19→21:54)
[2022-04-27] MEDS ORDERED: TRANEXAMIC ACID / 0.7% NACL 1,000 MG/100 ML BAG IV SCH (16:30)
[2022-04-27] MEDS: Scopolamine CHECK PATCH PLACEMENT SCH ×2 (16:50→23:39)
[2022-04-27] MEDS: ceFAZolin 2000MG 2,000 MG/15 ML SYR IV SCH (17:13)
[2022-04-27] MEDS: ASCORBIC ACID 500 MG TAB PO SCH (17:14)
[2022-04-27] MEDS: METOPROLOL TARTRATE 50 MG TAB PO SCH (20:37)
[2022-04-27] MEDS: DOCUSATE SODIUM 100 MG CAP PO SCH (20:38)
[2022-04-27] MEDS: PANTOprazole 40 MG TAB PO SCH (20:38)
[2022-04-27] MEDS ORDERED: SENNA 8.6 MG TAB PO SCH (21:00)
[2022-04-27] MEDS ORDERED: ROSUVASTATIN CALCIUM 5 MG TAB PO SCH (21:00)
[2022-04-27] MEDS ORDERED: dilTIAZem HCL 120 MG CAPCR PO SCH (21:00)
[2022-04-28] MEDS: ceFAZolin 2000MG 2,000 MG/15 ML SYR IV SCH (01:43)
[2022-04-28] MEDS: KETOROLAC TROMETHAMINE 15 MG/ML VIAL IV SCH (05:37)
[2022-04-28] MEDS: ACETAMINOPHEN 500 MG TAB PO SCH (05:38)
[2022-04-28 07:03] LABS: Hematocrit (blood only) 29.7 % (37.0-47.0); Hemoglobin 9.6 g/dl (12.0-16.0); Mean Corpuscular Hemoglobin 29.8 pg (25.0-34.0); Mean Corpuscular Hgb Conc 32.3 g/dL (32.0-36.0); Mean Corpuscular Volume 92.2 fL (80.0-100.0); Mean Platelet Volume 10.3 fL (9.4-12.4); Platelet Count 344 K/uL (130-400); RDW Coefficient of Variation 14.1 % (11.5-14.5); RDW Standard Deviation 48.2 fL (36.4-46.3); Red Blood Count 3.22 M/uL (4.20-5.40)
[2022-04-28 07:16] LABS: BUN Creatinine Ratio 16.3 (10-20); Calcium 9.5 mg/dl (8.5-10.1); Creatinine Clr Calc Pharmacy 51.2 ml/min; Est GFR (African American) 44.9 ml/min; Est GFR (Non-African American) 38.7 ml/min; Potassium 4.1 mmol/L (3.5-5.1)
[2022-04-28] MEDS: Scopolamine CHECK PATCH PLACEMENT SCH (07:40)
[2022-04-28] MEDS: METOPROLOL TARTRATE 50 MG TAB PO SCH (07:42)
[2022-04-28] MEDS: DOCUSATE SODIUM 100 MG CAP PO SCH (07:42)
[2022-04-28] MEDS: PANTOprazole 40 MG TAB PO SCH (07:43)
[2022-04-28] MEDS: ASCORBIC ACID 500 MG TAB PO SCH (07:43)
[2022-04-28] MEDS: traMADol HCL 50 MG TABLET PO PRN (07:47)
[2022-04-28] MEDS ORDERED: CHOLECALCIFEROL 1,000 UNITS 25 MCG TAB PO SCH (09:00)
[2022-04-28] MEDS ORDERED: MULTIVITAMIN TAB PO SCH (09:00)
[2022-04-28] MEDS ORDERED: lisinopril 20 MG TAB PO SCH (09:00)
[2022-04-28] MEDS ORDERED: CHLORTHALIDONE 25 MG TAB PO SCH (09:00)
[2022-04-28] MEDS ORDERED: MAGNESIUM OXIDE 400 MG TAB PO SCH (09:00)
[2022-04-28] MEDS ORDERED: NON-FORMULARY MEDICATION (Multivitamin Tablet) PO SCH (09:00)
[2022-04-28] MEDS ORDERED: DOCUSATE SODIUM/SENNA 50/8.6MG TAB PO SCH ×2 (09:00)
[2022-04-28] MEDS ORDERED: APIXABAN 2.5 MG TAB PO SCH (11:00)
--- NOTE | 2022-04-28 14:37 | Progress Notes ---
DATE OF SERVICE: 04/28/2022. SUBJECTIVE: A 67-year-old white female postoperative day 1 from a right knee replacement. She is do ing pretty well. Have a bit more pain today, but manageable. No chest pain or shortness of breath. Not feeling dizzy or lightheaded. Therapy went well and she is hoping to go home. OBJECTIVE: VITAL SIGNS: Temperature is 36.9. Vital signs are stable. GENERAL: Shows a pleasant middle-aged female. She was walking around her room and going to the bath room when I visited her today. LUNGS: Clear to auscultation. HEART: Regular rate and rhythm. ABDOMEN: Soft, nontender, nondistended. EXTREMITIES: Grossly neurovascularly intact except as follows. Examination of the right knee reveals patient is walking with use of a walker quite well. The dressi ngs clean, dry and intact. No significant drainage. She can dorsiflex and plantarflex her foot appr opriately. She can do a straight leg raise. LABORATORY DATA: Hemoglobin 9.6. Hematocrit 29.7. Electrolytes are stable. ASSESSMENT: A 67-year-old white female postoperative day 1 from right knee replacement, doing pretty well. Pain is controlled. She is neurologically intact. PLAN: 1. DVT prophylaxis includes thigh-high TEDs, SCDs and back on her normal Eliquis. 2. PT/OT, weightbear as tolerated. Right total knee protocol. 3. Pain control, doing okay with current pain regimen. 4. Disposition. Plan to discharge to home and she is going to have home health and do outpatient marge. Job ID: [id number]
--- NOTE | 2022-05-01 07:35 | Discharge Summary ---
Date of Service May 01, 2022 Discharge Data Procedures Performed Operation Date: 04/27/22 08:50 Actual Procedures p Right Total Knee Arthroplasty, Cemented(Right) - Kaden Petty MD Hospital Course (1) Status post total right knee replacement: This is a 67 year old patient admitted on 04/27/22 and underwent total knee arthroplasty. She tolerated the procedure well and there were no complications. Transferred to the PACU post op and later to the orthopedic floor for further care. She was given ancef for antibiotic prophylaxis. She was also given DORON stockings, SCDs, and eliquis for DVT prophylaxis. Hemoglobin, hematocrit, and vital signs were monitored during her hospital stay and remained stable. Did not require any blood transfusions. There were no complications during her hospital stay. By post op day #1 the patient was tolerating a regular diet, pain was reasonably controlled with oral pain medicine, and she was participating in physical therapy. On post op day #1 the patient was discharged home and set up with home health care. She was given printed discharge instructions including prescriptions for extra strength tylenol, cefadroxil, zofran, senokot, and tramadol. Continue physical therapy, weight bearing as tolerated. Continue DORON stockings. Follow up approximately 2 weeks post op or sooner if there are problems or concerns. Coding Level of Care Code None Diagnoses Status post total right knee replacement Z96.651
== END 2022-04-28 12:42 | disposition home health service (06) ==
LOC: 3E 06:30 → ASU 06:30

== ENCOUNTER 2022-11-30 05:20 | Inpatient (IN) ==
--- NOTE | 2022-11-24 11:14 | Anesthesiology Consultation ---
Date of Service November 24, 2022 Assessment & Plan (1) Encounter for pre-operative examination: Chart Review Chart Review: Acceptable Risk for Surgery History Surgery Operation Date: 11/30/22 08:50 Proposed Procedures p Right Total Knee Polyethylene Exchange - Kaden Petty MD Height/Weight Height: 5 ft 5 in Weight: 117.934 kg Allergies Allergy/AdvReac Type Severity Reaction Status Date / Time adhesive tape AdvReac Intermediate BLISTERS Verified 11/24/22 09:44 Medications Home Medications Medication Instructions Recorded Confirmed Last Taken diltiazem HCl 120 mg 120 mg PO HS 08/17/19 11/24/22 04/26/22 22:00 capsule,extended release 24 hr, controlled lisinopril 20 mg tablet 20 mg PO QAM 08/17/19 11/24/22 04/26/22 06:00 multivitamin 1 tab PO QAM 08/17/19 11/24/22 04/26/22 06:00 omeprazole 20 mg delayed 20 mg PO BID 08/17/19 11/24/22 04/27/22 06:00 release,disintegrating tablet apixaban 5 mg tablet (Eliquis) 5 mg PO BID #60 tabs 08/20/21 11/24/22 04/24/22 22:00 chlorthalidone 25 mg tablet 25 mg PO QAM 08/20/21 11/24/22 04/26/22 07:00 magnesium oxide 400 mg (241.3 mg 400 mg PO QAM #30 tabs 08/20/21 11/24/22 04/26/22 06:00 magnesium) tablet metoprolol tartrate 50 mg tablet 50 mg PO BID #60 tabs 08/20/21 11/24/22 04/27/22 06:00 rosuvastatin 5 mg tablet (Crestor) 10 mg PO HS 08/20/21 11/24/22 04/26/22 22:00 cholecalciferol (vitamin D3) 50 50 mcg PO QAM 03/29/22 11/24/22 04/26/22 06:00 mcg (2,000 unit) capsule (Vitamin D3) acetaminophen 500 mg capsule 1,000 mg PO TID Pain 30 days #180 04/24/22 11/24/22 Unknown caps ondansetron HCl 4 mg tablet 4 mg PO Q6 PRN nausea #20 tabs 04/24/22 11/24/22 Unknown sennosides 8.6 mg-docusate sodium 1 tab-cap PO DAILY #14 tabs 04/24/22 11/24/22 Unknown 50 mg tablet (Senokot-S) tramadol 50 mg tablet 50 - 100 mg PO Q6H PRN pain #40 05/10/22 11/24/22 Unknown tabs amoxicillin 500 mg tablet 2,000 mg PO ONCE 1 HOUR PRIOR TO 08/27/22 11/24/22 Unknown DENTAL PROCEDURES #4 tabs Past Medical History Medical History Achalasia Follows with GI - did have esophageal surgery - still gets heartburn and esophageal spasms - GI aware Basal cell carcinoma S/p removed Dyslipidemia Per records Esophageal dysmotility Follows with GI GERD (gastroesophageal reflux disease) Follows with GI History of COVID-19 Feb 21, 2022 > home test > treated with Paxlovid > all resolved History of pancreatitis Hx of Clostridium difficile infection Hx-1997 Hypertension Labile LVH (left ventricular hypertrophy) Mild/concentric 08/2021 Morbid obesity Paroxysmal atrial fibrillation On Eliquis, follows with [facility] Posterior vitreous detachment Resolved on own Prediabetes Past Family History Family History Other No family history of adverse response to anesthesia Past Surgical History Surgical History History of basal cell carcinoma (BCC) excision History of cardiac cath 1999 [place] - NO STENTS History of cholecystectomy History of colonoscopy History of ERCP History of esophagogastroduodenoscopy (EGD) recently with balloon dilation 05/05/20 at [facility] History of removal of skin mole History of right hip replacement 09/04/19: SAB at L3-L4. History of tooth extraction History of total left hip arthroplasty 05/27/20: SAB at L3-L4 1 attempt. History of total left knee replacement Status post total right knee replacement Social History Smoking Status: Never smoker Do You Dip or Chew Tobacco: No Hx Alcohol Use: No Hx Substance Use: No substance use type: does not use Testing Electrocardiogram Date: 09/10/22 Findings: + NSR @ (100) Echocardiogram Date: 08/20/21 EF: 60% LV Function: normal Valvular Disease: + no significant valvular disease
[2022-11-30] MEDS ORDERED: ROPIVACAINE 0.5% HCL/PF 150 MG, BUPIVACAINE 0.75% MPF 20 ML, EPINEPHrine 30MG/30ML (OR ... INSTIL SCH (06:00)
[2022-11-30] MEDS ORDERED: FAMOTIDINE 20 MG TAB PO SCH (06:00)
[2022-11-30] MEDS ORDERED: LR 500ML BOLUS, THEN 15ML/HR IV SCH ×2 (06:00)
[2022-11-30] MEDS ORDERED: ceFAZolin 2000MG 2,000 MG/15 ML SYR IV SCH (06:00)
[2022-11-30] MEDS ORDERED: Scopolamine 1 MG TDSY TD SCH (06:00)
[2022-11-30] MEDS ORDERED: CeleBREX 200 MG CAP PO SCH (06:00)
[2022-11-30] MEDS ORDERED: ACETAMINOPHEN 500 MG TAB PO SCH (06:00)
[2022-11-30] MEDS ORDERED: TRANEXAMIC ACID 1,000 MG **IV Pre-op IV SCH (06:00)
[2022-11-30] MEDS ORDERED: dexAMETHasone 4 MG TAB PO SCH (06:00)
[2022-11-30] MEDS ORDERED: METOCLOPRAMIDE HCL 10 MG TABLET PO SCH (06:00)
[2022-11-30] MEDS ORDERED: LR 60ML/HR IV SCH (06:00)
[2022-11-30] MEDS ORDERED: ROPIVACAINE 0.5% 5 MG/ML 30 ML VIAL ONE (06:14)
[2022-11-30] MEDS ORDERED: BUPIVACAINE 0.5 % 5 MG/1 ML PF 10ML VIAL ONE (06:14)
--- NOTE | 2022-11-30 06:34 | XRay Report ---
XR chest 2V PA/lateral CLINICAL HISTORY: Preoperative evaluation. COMPARISON STUDY: Chest radiograph August 20, 2021. FINDINGS: Lung volumes are normal. Lungs are clear. There is no pneumothorax or pleural effusion. Car diac size is normal. Mediastinal contours are normal. There is no evidence for pulmonary edema. IMPRESSION: No acute cardiopulmonary findings. ACT 112: Negative or not required by law. Electronically signed by: Kev Flores M.D. 11/30/2022 6:32 AM
[2022-11-30] MEDS ORDERED: PROPOFOL IV EMULSION 10 MG/ML 20 ML VIAL IV ONE (06:35)
[2022-11-30] MEDS ORDERED: fentaNYL citrate PF 100 MCG/2 ML VIAL ONE ×2 (06:35→07:34)
[2022-11-30] MEDS ORDERED: MIDAZOLAM HCL 1 MG/ML 2ML VIAL ONE ×2 (06:35→06:47)
[2022-11-30] MEDS ORDERED: LIDOCAINE 2% 2 ML VIAL/AMP(20MG/ML) INFIL ONE (06:35)
[2022-11-30] MEDS ORDERED: ePHEDrine sulfate 50 MG/ML AMP IV PRN (06:47)
[2022-11-30] MEDS ORDERED: ATROPINE SULFATE 0.1 MG/ML 10ML SYR IV PRN (06:47)
[2022-11-30] MEDS ORDERED: ONDANSETRON INJ 2 MG/ML 2 ML VIAL IV PRN ×2 (06:47→10:18)
[2022-11-30] MEDS ORDERED: SODIUM CHLORIDE 0.9% PF 50 ML VIAL ONE (06:53)
[2022-11-30] MEDS ORDERED: BUPIVACAINE/EPINEPHRINE 0.25% 1:200,000 30 ML VIAL ONE (06:53)
[2022-11-30] MEDS ORDERED: BUPIVACAINE LIPOSOME 1.3% 266 MG/20 ML VIAL ONE (06:53)
--- NOTE | 2022-11-30 07:00 | History & Physical Bridge Note ---
Date of Service November 30, 2022 History & Physical Bridge Note I have examined the patient, reviewed the History & Physical and in the interval since the performance of the History & Physical I have noted the following changes of clinical significance: no changes noted
[2022-11-30] MEDS ORDERED: DEXAMETHASONE SOD INJ 4 MG/ML VIAL ONE (07:38)
[2022-11-30] MEDS ORDERED: ONDANSETRON INJ 2 MG/ML 2 ML VIAL ONE (07:38)
[2022-11-30] MEDS ORDERED: KETOROLAC 30 MG/ML VIAL ONE (07:38)
[2022-11-30] MEDS ORDERED: ROCURONIUM BROMIDE 10 MG/ML 5 ML VIAL IV ONE (07:42)
[2022-11-30] MEDS ORDERED: NEOSTIGMINE METHYLSULFATE 1 MG/ML 10ML VIAL ONE (08:07)
[2022-11-30] MEDS ORDERED: GLYCOPYRROLATE 0.2 MG/ML VIAL ONE (08:07)
--- NOTE | 2022-11-30 08:40 | Operative Report ---
PG Post Operative Report Pre & Post Diagnosis Operation Date: 11/30/22 07:00 Pre-Op Diagnosis: Recurrent dislocation Right Knee Prosthesis Post-Op Diagnosis: Recurrent dislocation Right Knee Prosthesis I identified the patient and participated in the time-out.: Yes Procedure Operation Date: 11/30/22 07:00 Actual Procedures p Right Total Knee Polyethylene Exchange(Right) - Kaden Petty MD Surgeon Kaden Petty MD Admissions Advisor Robert Edmondson PA-C Estimated Blood Loss 25 Findings Consistent with Post-Op Diagnosis Examination incision of the right knee reveals a well-healed incision. There is no swelling or effusion. Range of motion is of full extension to 130 degrees of flexion. There is no clinical instability. I could not dislocate her knee when she was asleep in extension or flexion or even in a varus type position. Specimens None Anesthesia Type General Regional Complications none Disposition Accompanied Patient To Recovery: No Indications Patient is a 67-year-old female status post a right total knee replacement done back in April of this year. She did quite well and then dislocated her first time in August and the second bed just in early November. Patient is now indicated for revision for instability and recurrent dislocation. Description of Procedure Operative implants consist of: 1. Biomet Vanguard size 14 PS plus polyethylene insert. The patient was taken the operating, identified, placed on the operating table supine position architectures were properly padded antibiotics tried by anesthesia team. A general anesthetic and been implemented as she had not stop the Eliquis. 72 hours preoperatively. A general anesthetic and abductor canal block. Were provided. A Chinchilla catheter was placed in sterile fashion and right thigh tent was then placed in the right lower extremities and prepped draped in usual sterile fashion. The right leg was elevated exsanguinated with use of an Esmarch and the turn was placed at 300 mmHg. An anterior process of the right knee was then performed through a previous incision. Sharp dissection Through subcutaneous tissues directly down to the extensor mechanism. A medial parapatellar arthrotomy incision was made. Some subperiosteal dissection was carried out medially. There is some very mild blood-tinged serous fluid. There is no signs of infection or other problems. Slight synovectomy of the suprapatellar pouch and medial and lateral gutters was performed. I then flexed the knee. The polyethylene insert was removed. Then trialed the knee with a 14 PS plus insert. The knee was fairly tight but did get full extension. The knee clinically. Quite stable in flexion. I elect to use this implant. All trial implants were removed. A 14 mm PS plus insert was placed. The knee was taken through range of motion patella tracked nicely with no thumbs test. I did inject locally with 100 cc of combination of 20 cc Exparel, 30 cc normal saline, 50 cc of quarter percent Marcaine with epinephrine. Patient did receive 1 g tranexamic acid for the tourniquet down for final tourniquet time 25 minutes. Hemostasis surgery electrocautery. Extensor mechanism closed with #1 PDS suture #1 Vicryl suture in a [id number] fashion. The subcutaneous tissue then closed with 2 Dexon suture in buried interrupted fashion skin was closed skin marek. Leg was then cleaned and dried and sterile dressed with Xeroform, 4 fours, ABD pad, sterile cast padding, Ino bandage were applied. Patient then brought out of general esthesia and transferred to the recovery r o in stable condition. Patient tolerated procedure well and there were no complications. Robert Edmondson, physician library media assistant, was present for the entire procedure. His assistance was required for proper patient positioning, prepping and draping, surgical exposure, retraction, form the technical details of the operation, placement of the polyethylene insert, closure of the incision site and placement of sterile bandage. I attest to the content of the Intraoperative Record and any orders documented therein. Any exceptions are noted below.
[2022-11-30] MEDS: fentaNYL citrate PF 100 MCG/2 ML VIAL IV PRN ×4 (09:00→09:25)
--- NOTE | 2022-11-30 09:04 | XRay Report ---
XR knee RT 1 or 2V routine HISTORY: 67 years-old Female Surgical Post Op right knee arthroplasty COMPARISON: 09/10/2022 TECHNIQUE: 2 views of the right knee FINDINGS: Total joint arthroplasty with patellar resurfacing. Anterior midline skin marek with expected posto perative soft tissue swelling and deep tissue air. No acute fracture, alignment or expected opaque fo reign body. IMPRESSION: Total arthroplasty with expected postoperative changes. ACT 112: Negative or not required by law. The above report was generated using voice recognition software. It may contain grammatical, syntax o r spelling errors. Electronically signed by: Edilson Castro M.D. 11/30/2022 9:02 AM
[2022-11-30] MEDS ORDERED: bisacodyL 10 MG SUPP PR PRN (10:18)
[2022-11-30] MEDS ORDERED: NON-FORMULARY MEDICATION (Multivitamin Tablet) PO SCH (10:18)
[2022-11-30] MEDS ORDERED: HYDROmorphone INJ 0.5 MG/0.5 ML SYR IV PRN (10:18)
[2022-11-30] MEDS ORDERED: SENNA 8.6 MG TAB PO SCH ×2 (10:18→21:00)
[2022-11-30] MEDS ORDERED: NON-FORMULARY MEDICATION (Amoxicillin 500 mg tablet) PO SCH (10:18)
[2022-11-30] MEDS ORDERED: ALUMINUM/MAGNESIUM SUSP 30 ML UDC PO PRN (10:18)
[2022-11-30] MEDS ORDERED: NALOXONE HCL 0.4 MG/1 ML VIAL/CARP IV PRN (10:18)
[2022-11-30] MEDS ORDERED: ONDANSETRON 4 MG OD TAB PO PRN (10:18)
[2022-11-30] MEDS ORDERED: METOCLOPRAMIDE HCL INJ 5 MG/ML 2 ML VIAL IV PRN (10:18)
[2022-11-30] MEDS ORDERED: MAGNESIUM HYDROXIDE SUSP 30 ML UDC PO PRN (10:18)
[2022-11-30] MEDS: SODIUM CHLORIDE 0.9% 1,000 ML IV SCH ×2 (10:34→20:26)
[2022-11-30] MEDS: traMADol HCL 50 MG TABLET PO PRN ×2 (10:40→18:24)
[2022-11-30] MEDS: PANTOprazole 40 MG TAB PO SCH ×2 (11:12→20:30)
[2022-11-30] MEDS: METOPROLOL TARTRATE 50 MG TAB PO SCH ×2 (11:13→20:29)
[2022-11-30] MEDS: CHOLECALCIFEROL 1,000 UNITS 25 MCG TAB PO SCH (11:14)
[2022-11-30] MEDS: DOCUSATE SODIUM 100 MG CAP PO SCH ×2 (11:14→20:27)
[2022-11-30] MEDS: MULTIVITAMIN TAB PO SCH (11:15)
[2022-11-30] MEDS: MAGNESIUM OXIDE 400 MG TAB PO SCH ×2 (11:15→20:29)
[2022-11-30] MEDS: CHLORTHALIDONE 25 MG TAB PO SCH (11:15)
[2022-11-30] MEDS: lisinopril 20 MG TAB PO SCH (11:16)
--- NOTE | 2022-11-30 12:15 | Anesthesiology Progress Note ---
Date of Service November 30, 2022 Anesthesia Post Procedure Vital Signs Vital Signs: Temp Pulse Resp BP Pulse Ox O2 Del Method O2 Flow Rate 11/30/22 11:20 97.7 F 56 L 16 123/67 96 Room Air 11/30/22 10:50 97.2 F L 54 L 16 124/69 96 Room Air 11/30/22 10:20 97.7 F 61 16 137/71 96 Room Air 11/30/22 10:00 51 L 16 144/69 H 99 Nasal Cannula 2 11/30/22 09:45 97.5 F L 56 L 15 147/62 H 96 Nasal Cannula 2 11/30/22 09:35 63 17 142/57 H 96 Nasal Cannula 2 11/30/22 09:25 57 L 16 138/65 96 Nasal Cannula 2 11/30/22 09:15 58 L 16 143/69 H 97 Nasal Cannula 2 11/30/22 09:05 60 13 143/69 H 94 Room Air 11/30/22 08:55 61 15 153/63 H 96 Room Air 11/30/22 08:45 63 14 153/62 H 100 Oxymask 4 11/30/22 08:35 98.1 F 70 24 155/71 H 97 Oxymask 6 11/30/22 05:56 98.4 F 58 L 20 171/80 H 97 Room Air Pain Intensity Generalized: Pain Intensity: 1 Right Knee: Pain Intensity: 5 Transfer of Care Handoff Completed per policy Notes Mental Status: alert / awake / arousable and participated in evaluation Patient Amnestic to Procedure: Yes Nausea / Vomiting: adequately controlled Pain: adequately controlled Airway Patency, RR, SpO2: stable & adequate BP & HR: stable & adequate Hydration State: stable & adequate Anesthetic Complications: no major complications apparent and Pt Satisfied with anesthetic care
[2022-11-30] MEDS: ACETAMINOPHEN 500 MG TAB PO SCH ×2 (13:13→20:28)
[2022-11-30] MEDS ORDERED: TRANEXAMIC ACID / 0.7% NACL 1,000 MG/100 ML BAG IV SCH (14:30)
[2022-11-30] MEDS: ceFAZolin 2000MG 2,000 MG/15 ML SYR IV SCH ×2 (15:37→23:29)
[2022-11-30] MEDS: Scopolamine CHECK PATCH PLACEMENT SCH (15:38)
[2022-11-30] MEDS: KETOROLAC TROMETHAMINE 15 MG/ML VIAL IV SCH ×2 (17:08→23:29)
[2022-11-30] MEDS: ASCORBIC ACID 500 MG TAB PO SCH (17:12)
[2022-11-30] MEDS ORDERED: ROSUVASTATIN CALCIUM 10 MG TAB PO SCH (21:00)
[2022-11-30] MEDS ORDERED: dilTIAZem HCL 120 MG CAPCR PO SCH (21:00)
[2022-12-01] MEDS: Scopolamine CHECK PATCH PLACEMENT SCH ×2 (00:01→08:28)
[2022-12-01] MEDS: traMADol HCL 50 MG TABLET PO PRN ×2 (03:44→09:42)
[2022-12-01] MEDS: KETOROLAC TROMETHAMINE 15 MG/ML VIAL IV SCH (06:13)
[2022-12-01 06:55] LABS: Hematocrit (blood only) 32.1 % (37.0-47.0); Hemoglobin 10.6 g/dl (12.0-16.0); Mean Corpuscular Hemoglobin 30.1 pg (25.0-34.0); Mean Corpuscular Volume 91.2 fL (80.0-100.0); Mean Platelet Volume 10.7 fL (9.4-12.4); Platelet Count 330 K/uL (130-400); RDW Coefficient of Variation 13.3 % (11.5-14.5); RDW Standard Deviation 44.5 fL (36.4-46.3); Red Blood Count 3.52 M/uL (4.20-5.40); White Blood Count 17.56 K/ul (4.8-10.8)
[2022-12-01 06:56] LABS: BUN Creatinine Ratio 16.1 (10-20); Calcium 8.5 mg/dl (8.6-10.3); Est GFR (African American) 46.5 ml/min; Est GFR (Non-African American) 40.1 ml/min; Potassium 4.3 mmol/L (3.5-5.1)
[2022-12-01] MEDS: PANTOprazole 40 MG TAB PO SCH (08:28)
[2022-12-01] MEDS: MAGNESIUM OXIDE 400 MG TAB PO SCH (08:29)
[2022-12-01] MEDS: METOPROLOL TARTRATE 50 MG TAB PO SCH (08:29)
[2022-12-01] MEDS: lisinopril 20 MG TAB PO SCH (08:30)
[2022-12-01] MEDS: DOCUSATE SODIUM 100 MG CAP PO SCH (08:30)
[2022-12-01] MEDS: CHLORTHALIDONE 25 MG TAB PO SCH (08:30)
[2022-12-01] MEDS: MULTIVITAMIN TAB PO SCH (08:31)
[2022-12-01] MEDS: ASCORBIC ACID 500 MG TAB PO SCH (08:31)
[2022-12-01] MEDS: CHOLECALCIFEROL 1,000 UNITS 25 MCG TAB PO SCH (08:31)
[2022-12-01] MEDS: ACETAMINOPHEN 500 MG TAB PO SCH (08:32)
[2022-12-01] MEDS ORDERED: APIXABAN 2.5 MG TAB PO SCH (09:00)
--- NOTE | 2022-12-01 11:28 | Orthopedic Progress Note ---
Date of Service December 01, 2022 Assessment & Plan (1) Status post revision of total replacement of right knee: 67-year-old female postop day 1 from a revision of a total knee with polyethylene exchange for instability. She is doing well. Pains controlled. She is neurologically intact. Plan: 1. DVT prophylaxis including thigh-high teds SCDs we will start her back on Eliquis. She will get 2.5 mg today back to her normal dose tomorrow. #2 PT OT weight-bear as tolerated. Right total knee protocol. 3. Pain control doing okay with current pain regimen for disposition plan to discharge home with some home health today as long she does well in therapy. Subjective . 67-year-old female postop day 1 from a right knee polyethylene revision for instability. She is doing well this morning. Had a good night. Pains been very manageable. No chest pain or shortness of breath. Not feeling dizzy or lightheaded. Review of Systems All systems reviewed & are unremarkable except as noted in HPI & below. Physical Exam . Physical relation was a pleasant middle-age female. She is lying in bed looks pretty comfortable this morning. Examination of the right leg reveals leg to be well aligned. Dressing is clean dry and intact. She can dorsiflex and plantarflex her foot appropriately. She can do a straight leg raise but takes quite a bit of effort. Respiratory normal respiratory effort, lungs clear to auscultation Cardiovascular RRR, no murmur, no edema Gastrointestinal (Abdomen) normal bowel sounds, soft, nontender, no hepatosplenomegaly Results & Data Results & Data Laboratory Results . Hemoglobin is at 10.6. Hematocrit is 32.1. Electrolytes are stable. Creatinine just slightly elevated. Diagnostic Findings . PG Care Time/CCT Total # of Minutes Spent Total Time Spent with Patient: Total time spent is greater than 50% in coordination of care (as documented) at patient's floor/unit and/or counseling patient: Coding Level of Care Code 49609 Post Operative Follow-Up Diagnoses Status post revision of total replacement of right knee Z96.651
--- NOTE | 2022-12-03 12:01 | Discharge Summary ---
Date of Service December 03, 2022 Discharge Data Procedures Performed Operation Date: 11/30/22 07:00 Actual Procedures p Right Total Knee Polyethylene Exchange(Right) - Kaden Petty MD Hospital Course (1) Status post revision of total replacement of right knee: This is a 67 year old patient admitted on 11/30/22 and underwent right knee polyethylene exchange . She tolerated the procedure well and there were no complications. Transferred to the PACU post op and later to the orthopedic floor for further care. She was given ancef for antibiotic prophylaxis. She was also given DORON stockings, SCDs, and eliquis for DVT prophylaxis. Hemoglobin, hematocrit, and vital signs were monitored during her hospital stay and remained stable. Did not require any blood transfusions. There were no complications during her hospital stay. By post op day #1 the patient was tolerating a regular diet, pain was reasonably controlled with oral pain medicine, and she was participating in physical therap y. On post op day #1 the patient was discharged home and set up with home health care. __ was given printed discharge instructions including prescriptions for extra strength tylenol, zofran, senokot, and tramadol. Continue physical therapy, weight bearing as tolerated. Continue DORON stockings. Follow up approximately 2 weeks post op or sooner if there are problems or concerns. Coding Level of Care Code None Diagnoses Status post revision of total replacement of right knee Z96.651
== END 2022-12-01 11:52 | disposition home health service (06) | DRG 468 ==
LOC: ASU 05:20 → 3E 08:33